=== PATIENT | male | born 1935 | race Caucasian/White ===

== ENCOUNTER → 2018-04-11 | Day surgery (SDC) | payer OTHER ==
[2018-03-15 11:26] VITALS: Ht 162.6 cm; Wt 75.0 kg
[~2018-04-11] VITALS: Ht 162.6 cm; Wt 75.0 kg
[~2018-04-11] MED LIST: 500ML BSS 0.3ML EPI 1:1000PF IRRIG ONE; ACETAMINOPHEN 325 MG TAB PO PRN; AMLO-110 PO; AMVISC PLUS 0.8ML SYRINGE INT OCU ONE; ASPCH81X PO; ATEN-173 PO; ATOR-26 PO; ATROPINE SULFATE 0.1 MG/ML 5ML SYR IV PRN; BSS FLUSH ONE; CETI10TA10 PO; EpHEDrine SULFATE INJ 50 MG/ML AMP IV PRN; EpINEphrine INJ 1MG/ML AMP 1 MG/ML AMP ONE; FLUT0.15 NAE; FURO-85 PO; LACTATED RINGER'S 1000ML 500 ML IV SCH; LIDOCAINE 3.5% OPH GEL PER APPLICATION CHARGE ONE; LIDOCAINE HCL 1% MPF 2 ML VIAL ONE; MIDAZOLAM HCL 1 MG/ML 2ML VIAL ONE; MULT-190 PO; NEBUMIS38 INH; NXM/40 PO; OCUCOAT 1 ML SOLN IO ONE; PHENYLEPHRINE HCL 10% OP SOLN PER DROP CHARGE OPL SCH; POTA1TAB97 PO; POVIDONE-IODINE OP SOLN 30 ML BTL ONE; PROPARACAINE 0.5% OP SOLN PER DROP CHARGE OPL SCH; RANI150T85 PO; TOBRAMYCIN/DEXAMETHASONE OPH OINT PER APPLN CHARGE ONE; TRAZ50TA35 PO; UMEC1AER INH; VNTHFA/IN INH
[2018-04-11] MEDS: PHENYLEPHRINE HCL 2.5% OP SOLN PER DROP CHARGE OPL SCH ×2 (10:43→10:49)
[2018-04-11] MEDS: TROPICAMIDE 1% OP SOLN PER DROP CHARGE OPL SCH ×2 (10:44→10:50)
[2018-04-11] MEDS: CYCLOPENTOLATE HCL 1% OP SOLN PER DROP CHARGE OPL SCH ×2 (10:45→10:50)
[2018-04-11] MEDS: KETOROLAC 0.5% OP SOLN PER DROP CHARGE OPL SCH ×2 (10:46→10:51)
[2018-04-11] MEDS: GATIFLOXACIN OP SOLN PER DROP CHARGE OPL SCH ×2 (10:48→10:58)
--- NOTE | 2018-04-11 10:48 | History & Physical Bridge - [place] ---
H&P Re-Evaluation Bridge Note: I have examined the patient, reviewed the History & Physical and in the interval since the performance of the History & Physical I have noted the following changes of clinical significance: Diagnosis: Left Cataract Procedure: Left Cataract Removal with Lens Implant No changes noted
--- NOTE | 2018-04-11 11:21 | [facility] Operative Report ---
Operative Report Date of Service April 11, 2018. Operative Report 1. PREOPERATIVE DIAGNOSIS: Cataract of the left eye. 2. POSTOPERATIVE DIAGNOSIS: Same. 3. PROCEDURE: Phacoemulsification with intraocular lens implantation of the left eye. SURGEON: Dr. Emmanuel Simons. ANESTHESIA: Topical Lidocaine gel, 1% Non- Preserved intracameral Lidocaine, and monitored intravenous sedation. INDICATIONS FOR THE PROCEDURE: The patient is a 82 - year-old male with a history of cataract of the left eye causing significant visual impairment. The details of the proposed procedure were explained to the patient who asked appropriate questions and following discussion of all risks, benefits and alternatives agreed to have the procedure done. 4. OPERATION AND FINDINGS: DESCRIPTION OF PROCEDURE: After informed consent was obtained, the patient was brought to the Operating Room at the [facility]. The patient was placed in a supine position and then the left eye was prepped and draped in the usual sterile fashion for intraocular surgery. A drop of topical Lidocaine gel was placed in the operative eye. A wire lid speculum was then placed in the fornices. A corneal paracentesis was then created temporally. The Non-Preserved Lidocaine was then instilled into the anterior chamber. The anterior chamber was then pressurized with viscoelastic. A 2.0 mm clear corneal incision was then created temporally. A cystotome was inserted into the anterior chamber and used to create a tear in the anterior lens capsule. This capsular tear was then used to create a small flap and the flap was dragged in a counterclockwise direction in order to create a continuous curvilinear capsulorrhexis. Hydrodissection was accomplished with balanced salt solution. Phacoemulsification of the lens nucleus was then performed in a standard [id number] technique. The phaco time was 45 seconds with an average power of 21 %. The remaining cortical material was removed using irrigation aspiration. The capsular bag was then filled with viscoelastic. A [employer]ch [employer] Lomb MI60L +20.5 diopters lens was then loaded into the injector and injected into the capsular bag. The remaining viscoelastic was removed with the irrigation aspiration handpiece. The wound was hydrated and then checked and found to be watertight. The intraocular pressure was checked and found to be adequate. The wire lid speculum was removed and the patient's face was cleaned and dried. TobraDex ointment was placed in the inferior fornix. The patient was discharged to the Recovery Room having tolerated the procedure well. There were no complications. The patient will be seen tomorrow in the office for follow-up. I attest to the content of the Intraoperative Record and any orders documented therein. Any exceptions are noted below.
--- NOTE | 2018-04-11 11:22 | Discharge Instructions-SurgCtr ---
Discharge Instructions Date of Service April 11, 2018. Visit Reason for Visit: Cataract Left Eye Discharge Discharge Diagnosis / Problem: cataract Discharge Goals Goal(s): Improve function Activity Recommendations Activity Limitations: per Instructions/Follow-up section Anesthesia . Post Anesthesia Instructions: If you have had General Anesthesia or IV Sedation: * Do not drive today. * Resume driving when surgeon permits. * Do not make important decisions or sign legal documents today. * Call surgeon for: 1. Temperature elevations greater than 101 degrees F. 2. Uncontrollable pain. 3. Excessive bleeding. 4. Persistent nausea and vomiting. 5. Medication intolerance (nausea, vomiting or rash). * For nausea and vomiting use only clear liquids such as: tea, soda, bouillon until nausea subsides, then gradually increase diet as tolerated. * If you have any concerns or questions, call your surgeon's office. If physician is unavailable and it is an emergency, call 911 or go to the nearest emergency room. . Diet Recommendations Home Diet: resume previous diet Procedures Procedures Performed: Left Cataract Phacoemulsification With Intraocular Lens Implant Pending Studies Studies pending at discharge: no Medical Emergencies . Who to Call and When: Medical Emergencies: If at any time you feel your situation is an emergency, please call 911 immediately. . Non-Emergent Contact Non-Emergency issues call your: [employer]rapist . . "Provider Documentation" section prepared by Emmanuel Simons. .
[2018-04-11 11:26] VITALS: TEMP 36.4
--- NOTE | 2018-04-11 11:28 | Anesthesia Progress Nt - [facility] ---
Anesthesia Post Op Note Date & Time April 11, 2018 at 11:28 Vital Signs Pain Intensity: 0 Vital Signs Past 12 Hours Date Time Temp Pulse Resp B/P (MAP) Pulse Ox O2 Delivery O2 Flow Rate FiO2 04/11/18 10:30 36.5 52 16 159/72 (101) 94 Room Air Notes Mental Status: alert / awake / arousable, participated in evaluation Pt Amnestic to Procedure: Yes Nausea / Vomiting: adequately controlled Pain: adequately controlled Airway Patency, RR, SpO2: stable & adequate BP & HR: stable & adequate Hydration State: stable & adequate Anesthetic Complications: no major complications apparent
[2018-04-11 11:49] VITALS: BP 146/75; PULSE 62; O2SAT 96
== END | disposition home or self-care (01) ==
LOC: X.SURG 09:52
PROVIDERS: ATTEND Ophthalmology
DX: H26.9 Unspecified cataract (principal); J44.9 Chronic obstructive pulmonary disease, unspecified; I10 Essential (primary) hypertension; E78.5 Hyperlipidemia, unspecified; I25.10 Atherosclerotic heart disease of native coronary artery without angina pectoris; Z87.891 Personal history of nicotine dependence

== ENCOUNTER 2019-01-20 11:40 | Inpatient (IN) ==
[2019-01-20] MEDS ORDERED: ACETAMINOPHEN 500 MG TAB PO STA (11:50)
[2019-01-20 12:16] LABS: Basophils # (auto) 0.03 K/uL (0-0.2); Basophils % (auto) 0.2 %; Eosinophils # (auto) 0.09 K/uL (0-0.5); Eosinophils % (auto) 0.6 %; Hematocrit (blood only) 37.5 % (42-52); Hemoglobin 12.7 g/dL (14.0-18.0); Immature Granulocytes # (auto) 0.04 K/uL (0.00-0.02); Immature Granulocytes % (auto) 0.3 %; Lymphocytes # (auto) 0.71 K/uL (1.2-3.4); Lymphocytes % (auto) 4.9 %; Mean Corpuscular Hgb Conc 33.9 g/dL (32-36); Mean Corpuscular Volume 97.2 fL (80-100); Mean Platelet Volume 9.4 fL (7.4-10.4); Monocytes # (auto) 0.87 K/uL (0.11-0.59); Platelet Count 233 K/uL (130-400); RDW Coefficient of Variation 14.3 % (11.5-14.5); RDW Standard Deviation 50.9 fL (36.4-46.3); Red Blood Count 3.86 M/uL (4.7-6.1); White Blood Count 14.54 K/uL (4.8-10.8)
--- NOTE | 2019-01-20 12:18 | Emergency Department Note ---
History of Present Illness General Chief Complaint: Altered Mental Status Stated Complaint: ams Source: patient History of Present Illness Provider Complaint: shortness of breath Onset (ago): day(s) (this morning) Consistency/Duration: + constant Maximum Pain Intensity: 5 Relieved By: + other (DuoNeb) Associated symptoms: + denies other symptoms (chest pain, hemoptysis), + cough and + other (rigors, rhinorrhea, weakness); no abdominal pain The patient is an 83-year-old male who presented to the emergency department from home for an evaluation of shortness of breath. The patient describes rigor s which began prior to arrival. He states that he did feel at his baseline last evening but today when he awoke he noticed that he did not feel well. The patient did not know that he had a fever but was found to have an elevated temperature upon arrival to the emergency department. He states that he was having shortness of breath and cough. He also notices rhinorrhea. He denies having any sick contacts. He also states that he feels very weak. The weakness appears to be global. He does not complain of any abdominal pain or chest pain. He states the cough has been productive slightly but no hemoptysis. The patient has not seen his family doctor for these complaints. The patient arri ves at the emergency department via ambulance. He received a DuoNeb prior to arrival. Home Medications Home Medications Medication Instructions Recorded Confirmed Type albuterol sulfate [Ventolin HFA] 2 puff INHALATION Q6H PRN 08/05/18 01/20/19 History amlodipine 5 mg PO DAILY 08/05/18 01/20/19 History aspirin [Aspir-81] 81 mg PO DAILY 08/05/18 01/20/19 History atenolol 25 mg PO DAILY 08/05/18 01/20/19 History atorvastatin 80 mg PO PM 08/05/18 01/20/19 History cetirizine 10 mg PO DAILY 08/05/18 01/20/19 History esomeprazole magnesium 40 mg PO BID 08/05/18 01/20/19 History fluticasone [Flonase Allergy 1 spray INTRANASAL DAILY 08/05/18 01/20/19 History Relief] furosemide 20 mg PO DAILY 08/05/18 01/20/19 History potassium chloride 20 meq PO DAILY 08/05/18 01/20/19 History ranitidine HCl 150 mg PO BID 08/05/18 01/20/19 History donepezil 10 mg PO DAILY 01/20/19 01/20/19 History meloxicam 15 mg PO DAILY 01/20/19 01/20/19 History methocarbamol 500 mg PO BID 01/20/19 01/20/19 History nitroglycerin [Nitrostat] 0.4 mg SUBLINGUAL UD 01/20/19 01/20/19 History tiotropium-olodaterol [Stiolto 1 puff INHALATION DAILY 01/20/19 01/20/19 History Respimat] vit C,X-La-olvhp-lutein-zeaxan 1 tab PO BID 01/20/19 01/20/19 History [PreserVision AREDS-2] Allergies Allergy/AdvReac Type Severity Reaction Status Date / Time fentanyl Allergy Unknown cardiac Verified 01/20/19 12:06 arrest lisinopril Allergy Unknown DOES NOT Verified 01/20/19 12:06 KNOW omeprazole AdvReac Unknown dry mouth Verified 01/20/19 12:06 tiotropium AdvReac Unknown didn't Verified 01/20/19 12:06 work for [employer] Past Med/Surg History Medical History Chronic back pain (Chronic) CAD (coronary artery disease) (Chronic) Carotid stenosis (Chronic) COPD (chronic obstructive pulmonary disease) (Chronic) Sleep apnea (Chronic) 2L O2 HS Barretts esophagus (Chronic) GERD (gastroesophageal reflux disease) (Chronic) Dyslipidemia (Chronic) HTN (hypertension) (Chronic) GERD (gastroesophageal reflux disease) (Chronic) Surgical History History of partial colectomy (Resolved) right splenic colonic resection, incidental appendectomy 08/2011 at [facility] H/O heart artery stent (Resolved) History of cholecystectomy (Resolved) H/O heart artery stent Social History Preferred Language: Italian Communication Ability: Impaired Communication Ability Comment: worsened confusion, baseline dementia Financial Services Associate Required: No Beliefs That Will Affect Care: None marital status: / Current Living Situation: Family Current Living Situation Comment: lives with daughter current occupational status: retired Other Information That Helps Us Care for You: No Feels Safe at Home: Yes Safety Concerns: Feels Safe At This Time Smoking Status: Former smoker Hx Alcohol Use: Yes Hx Substance Use: No Review of Systems See HPI for pertinent positives & negatives. and A total of 10 systems reviewed and were otherwise negative Physical Exam Vital Signs: Vital Signs - 24 hr 01/20/19 11:46 01/20/19 11:48 01/20/19 11:50 Temperature 39.4 C H Temperature Source Oral Sepsis Recent Feve r Within 48 Hours Yes Sepsis New/Unexpla ined Change in Men russel Status Yes Sepsis Action Take n by Nursing Physician Notified Pulse Rate 93 H 99 H 90 Pulse Rate [Finger ] Pulse Rate from Sp O2 Sensor 92 H 98 H 90 Respiratory Rate 24 17 30 H Respiratory Effort / Characteristics Respiratory Depth Respiratory Patter n Blood Pressure 143/67 H 143/67 H Blood Pressure [Ri ght Arm] Blood Pressure Jelena n 92 92 Blood Pressure Jelena n [Right Arm] Blood Pressure Pos ition [Right Arm] Pulse Oximetry 91 93 93 Pulse Oximetry [Ri ght Index Finger] Oxygen Delivery Me thod Room Air Oxygen Delivery Me thod [Right Index Finger] Oxygen Flow Rate 01/20/19 12:00 01/20/19 12:01 01/20/19 12:10 Temperature Temperature Source Sepsis Recent Feve r Within 48 Hours Sepsis New/Unexpla ined Change in Men russel Status Sepsis Action Take n by Nursing Pulse Rate 88 92 H 95 H Pulse Rate [Finger ] Pulse Rate from Sp O2 Sensor 93 H 88 95 H Respiratory Rate 28 H 33 H 27 H Respiratory Effort / Characteristics Respiratory Depth Respiratory Patter n Blood Pressure 148/68 H Blood Pressure [Ri ght Arm] Blood Pressure Jelena n 94 Blood Pressure Jelena n [Right Arm] Blood Pressure Pos ition [Right Arm] Pulse Oximetry 94 93 Pulse Oximetry [Ri ght Index Finger] Oxygen Delivery Me thod Oxygen Delivery Me thod [Right Index Finger] Oxygen Flow Rate 01/20/19 12:20 01/20/19 12:30 01/20/19 12:40 Temperature Temperature Source Sepsis Recent Feve r Within 48 Hours Sepsis New/Unexpla ined Change in Men russel Status Sepsis Action Take n by Nursing Pulse Rate 89 95 H 93 H Pulse Rate [Finger ] Pulse Rate from Sp O2 Sensor 90 84 92 H Respiratory Rate 24 25 H 28 H Respiratory Effort / Characteristics Respiratory Depth Respiratory Patter n Blood Pressure Blood Pressure [Ri ght Arm] Blood Pressure Jelena n Blood Pressure Jelena n [Right Arm] Blood Pressure Pos ition [Right Arm] Pulse Oximetry 93 74 L 93 Pulse Oximetry [Ri ght Index Finger] Oxygen Delivery Me thod Oxygen Delivery Me thod [Right Index Finger] Oxygen Flow Rate 01/20/19 12:50 01/20/19 12:51 01/20/19 12:53 Temperature Temperature Source Sepsis Recent Feve r Within 48 Hours Sepsis New/Unexpla ined Change in Men russel Status Sepsis Action Take n by Nursing Pulse Rate 90 93 H Pulse Rate [Finger ] 91 H Pulse Rate from Sp O2 Sensor 92 H 94 H Respiratory Rate 25 H 22 30 H Respiratory Effort / Characteristics Respiratory Depth Respiratory Patter n Blood Pressure 138/61 Blood Pressure [Ri ght Arm] 138/61 Blood Pressure Jelena n 86 Blood Pressure Jelena n [Right Arm] 86 Blood Pressure Pos ition [Right Arm] Pulse Oximetry 93 93 94 Pulse Oximetry [Ri ght Index Finger] Oxygen Delivery Me thod Nasal Cannula Oxygen Delivery Me thod [Right Index Finger] Oxygen Flow Rate 1 01/20/19 13:00 01/20/19 13:01 01/20/19 13:10 Temperature Temperature Source Sepsis Recent Feve r Within 48 Hours Sepsis New/Unexpla ined Change in Men russel Status Sepsis Action Take n by Nursing Pulse Rate 94 H 98 H 101 H Pulse Rate [Finger ] Pulse Rate from Sp O2 Sensor 98 H 101 H Respiratory Rate 27 H 22 23 Respiratory Effort / Characteristics Respiratory Depth Respiratory Patter n Blood Pressure 135/65 Blood Pressure [Ri ght Arm] Blood Pressure Jelena n 88 Blood Pressure Jelena n [Right Arm] Blood Pressure Pos ition [Right Arm] Pulse Oximetry 93 93 Pulse Oximetry [Ri ght Index Finger] Oxygen Delivery Me thod Oxygen Delivery Me thod [Right Index Finger] Oxygen Flow Rate 01/20/19 13:20 01/20/19 13:30 01/20/19 13:31 Temperature Temperature Source Sepsis Recent Feve r Within 48 Hours Sepsis New/Unexpla ined Change in Men russel Status Sepsis Action Take n by Nursing Pulse Rate 103 H 96 H 98 H Pulse Rate [Finger ] Pulse Rate from Sp O2 Sensor 103 H 96 H 97 H Respiratory Rate 26 H 27 H 27 H Respiratory Effort / Characteristics Respiratory Depth Respiratory Patter n Blood Pressure 139/65 Blood Pressure [Ri ght Arm] Blood Pressure Jelena n 89 Blood Pressure Jelena n [Right Arm] Blood Pressure Pos ition [Right Arm] Pulse Oximetry 93 93 93 Pulse Oximetry [Ri ght Index Finger] Oxygen Delivery Me thod Oxygen Delivery Me thod [Right Index Finger] Oxygen Flow Rate 01/20/19 13:32 01/20/19 13:40 01/20/19 13:50 Temperature Temperature Source Sepsis Recent Feve r Within 48 Hours Sepsis New/Unexpla ined Change in Men russel Status Sepsis Action Take n by Nursing Pulse Rate 108 H 103 H Pulse Rate [Finger ] 99 H Pulse Rate from Sp O2 Sensor 107 H 104 H Respiratory Rate 22 26 H 30 H Respiratory Effort / Characteristics Respiratory Depth Respiratory Patter n Blood Pressure Blood Pressure [Ri ght Arm] 139/65 Blood Pressure Jelena n Blood Pressure Jelena n [Right Arm] 89 Blood Pressure Pos ition [Right Arm] Pulse Oximetry 96 97 96 Pulse Oximetry [Ri ght Index Finger] Oxygen Delivery Me thod Nebulizer Oxygen Delivery Me thod [Right Index Finger] Oxygen Flow Rate 01/20/19 14:00 01/20/19 14:10 01/20/19 14:12 Temperature Temperature Source Sepsis Recent Feve r Within 48 Hours Sepsis New/Unexpla ined Change in Men russel Status Sepsis Action Take n by Nursing Pulse Rate 99 H 100 H Pulse Rate [Finger ] 97 H Pulse Rate from Sp O2 Sensor 101 H 100 H Respiratory Rate 34 H 29 H 24 Respiratory Effort / Characteristics Respiratory Depth Respiratory Patter n Blood Pressure 104/45 L Blood Pressure [Ri ght Arm] 104/45 L Blood Pressure Jelena n 64 Blood Pressure Jelena n [Right Arm] 64 Blood Pressure Pos ition [Right Arm] Pulse Oximetry 95 89 L 94 Pulse Oximetry [Ri ght Index Finger] Oxygen Delivery Me thod Room Air Oxygen Delivery Me thod [Right Index Finger] Oxygen Flow Rate 01/20/19 14:20 01/20/19 14:30 01/20/19 14:31 Temperature Temperature Source Sepsis Recent Feve r Within 48 Hours Sepsis New/Unexpla ined Change in Men russel Status Sepsis Action Take n by Nursing Pulse Rate 98 H 98 H 98 H Pulse Rate [Finger ] Pulse Rate from Sp O2 Sensor 96 H 107 H 98 H Respiratory Rate 29 H 25 H 41 H Respiratory Effort / Characteristics Respiratory Depth Respiratory Patter n Blood Pressure 117/51 L Blood Pressure [Ri ght Arm] Blood Pressure Jelena n 73 Blood Pressure Jelena n [Right Arm] Blood Pressure Pos ition [Right Arm] Pulse Oximetry 95 91 94 Pulse Oximetry [Ri ght Index Finger] Oxygen Delivery Me thod Oxygen Delivery Me thod [Right Index Finger] Oxygen Flow Rate 03/02/19 14:40 01/20/19 14:50 01/20/19 15:00 Temperature Temperature Source Sepsis Recent Feve r Within 48 Hours Sepsis New/Unexpla ined Change in Men russel Status Sepsis Action Take n by Nursing Pulse Rate 96 H 96 H 92 H Pulse Rate [Finger ] Pulse Rate from Sp O2 Sensor 96 H 95 H 92 H Respiratory Rate 25 H 15 27 H Respiratory Effort / Characteristics Spontaneous SOB on Exertion Respiratory Depth Normal Respiratory Patter n Tachypnea Blood Pressure 111/61 Blood Pressure [Ri ght Arm] Blood Pressure Jelena n 77 Blood Pressure Jelena n [Right Arm] Blood Pressure Pos ition [Right Arm] Pulse Oximetry 94 94 95 Pulse Oximetry [Ri ght Index Finger] Oxygen Delivery Me thod Room Air Oxygen Delivery Me thod [Right Index Finger] Oxygen Flow Rate 01/20/19 15:01 01/20/19 15:10 01/20/19 15:56 Temperature Temperature Source Sepsis Recent Feve r Within 48 Hours Sepsis New/Unexpla ined Change in Men russel Status Sepsis Action Take n by Nursing Pulse Rate 93 H 88 Pulse Rate [Finger ] 81 Pulse Rate from Sp O2 Sensor 94 H 88 Respiratory Rate 26 H 20 22 Respiratory Effort / Characteristics Respiratory Depth Respiratory Patter n Blood Pressure Blood Pressure [Ri ght Arm] 118/62 Blood Pressure Jelena n Blood Pressure Jelena n [Right Arm] 80 Blood Pressure Pos ition [Right Arm] Pulse Oximetry 94 94 91 Pulse Oximetry [Ri ght Index Finger] Oxygen Delivery Me thod Room Air Oxygen Delivery Me thod [Right Index Finger] Oxygen Flow Rate 01/20/19 16:25 01/20/19 17:03 01/20/19 19:00 Temperature 36.6 C Temperature Source Oral Sepsis Recent Feve r Within 48 Hours Sepsis New/Unexpla ined Change in Men russel Status Sepsis Action Take n by Nursing Pulse Rate Pulse Rate [Finger ] 73 76 Pulse Rate from Sp O2 Sensor Respiratory Rate 22 20 16 Respiratory Effort / Characteristics Non-Labored Sponta neous Respiratory Depth Respiratory Patter n Blood Pressure Blood Pressure [Ri ght Arm] 107/55 L Blood Pressure Jelena n Blood Pressure Jelena n [Right Arm] 72 Blood Pressure Pos ition [Right Arm] Left Lateral Pulse Oximetry 91 91 93 Pulse Oximetry [Ri ght Index Finger] 95 Oxygen Delivery Me thod Room Air Room Air Oxygen Delivery Me thod [Right Index Finger] Room Air Oxygen Flow Rate Physical Exam: GENERAL: Patient is awake alert in no acute distress patient is resting comfortably and showing no signs of anxiety EYES: The conjunctivae are clear. The pupils are round and reactive. EARS, NOSE, MOUTH AND THROAT: Mucous members are moist. There is clear rhin orrhea noted bilaterally. NECK: The neck is nontender and supple. RESPIRATORY: Tachypnea was appreciated. The patient does not have conversational dyspnea. There are diminished breath sounds in the left base. CARDIOVASCULAR: Regular rate and rhythm noted there no murmurs rubs or gallops normal S1 normal S2 GASTROINTESTINAL: The abdomen is soft. Bowel sounds are present in all quadrants. Abdomen is nontender MUSCULOSKELETAL/EXTREMITIES: There is no evidence of gross deformity full range of motion is noted in the hips and shoulders SKIN: There is no obvious evidence of any rash. Pedal edema was noted bilaterally. NEUROLOGIC: Patient is awake alert and oriented x3. Course 1152: Past medical records reviewed. The patient was evaluated in room B4B, and a complete history and physical examination were performed. 1350: I reevaluated the patient and updated him and his family on his test results. I discussed the treatment plan with them. They verbally agree and understand. 1403: [facility] will evaluate the patient for further management. Consultations Consultation #1: I discussed the patient's case with SARA August. She will evaluate the patient for further management. Time: 14:03 Administered Medications Sodium Chloride (Nss 1000ml) 1,000 mls @ 100 mls/hr IV .Q10H [facility] Stop: 01/21/19 13:02 Last Admin: 01/20/19 17:45 Dose: 100 mls/hr Documented by: [id number] Vancomycin HCl 2,000 mg/ (Sodium Chloride) 540 mls @ 200 mls/hr IV NOW ONE Stop: 01/20/19 21:11 Last Admin: 01/20/19 18:51 Dose: 200 mls/hr Documented by: [id number] Ipratropium Maple (Atrovent 0.02% 0.5mg/2.5ml) 0.5 mg INH Q6R SADA Stop: 02/19/19 19:59 Last Admin: 01/20/19 18:59 Dose: 0.5 mg Documented by: [id number] Levalbuterol HCl (Xopenex 0.63 Mg/3 Ml Neb) 0.63 mg NEB Q6R SADA Stop: 02/19/19 19:59 Last Admin: 01/20/19 18:59 Dose: 0.63 mg Documented by: [id number] Discontinued Medications Acetaminophen (Tylenol) 1,000 mg PO NOW STA Stop: 01/20/19 11:51 Last Admin: 01/20/19 12:15 Dose: 1,000 mg Documented by: [id number] Albuterol (Duoneb) 3 ml NEB NOW STA Stop: 01/20/19 13:14 Last Admin: 01/20/19 13:26 Dose: 3 ml Documented by: [id number] Ceftriaxone Sodium (Rocephin) 1,000 mg in 50 mls @ 100 mls/hr IV NOW STA Stop: 01/20/19 13:39 Last Infusion: 01/20/19 13:57 Dose: 0 mls/hr Documented by: [id number] Admin: 01/20/19 13:26 Dose: 100 mls/hr Documented by: [id number] Lorazepam (Ativan) 1 mg in 2 mls @ 2 mls/min IV NOW STA Stop: 01/20/19 13:14 Last Admin: 01/20/19 13:25 Dose: 2 mls/min Documented by: [id number] Sodium Chloride (Nss) 500 mls @ 999 mls/hr IV .Q31M ONE Stop: 01/20/19 13:43 Last Infusion: 01/20/19 14:13 Dose: 0 mls/hr Documented by: [id number] Admin: 01/20/19 13:35 Dose: 999 mls/hr Documented by: [id number] Piperacillin Sod/Tazobactam (Sod 3.375 gm/ Dextrose) 115 mls @ 230 mls/hr IV NOW ONE; Protocol Stop: 01/20/19 18:14 Last Infusion: 01/20/19 19:26 Dose: 0 mls/hr Documented by: [id number] Admin: 01/20/19 18:51 Dose: 230 mls/hr Documented by: [id number] Medical Decision Making Differential Diagnosis Etiologies such as pneumonia, COPD, reactive airway disease, CHF, cardiac ischemia, pulmonary embolism, pneumothorax, mus culoskeletal, infections, gastrointestinal, as well as others were entertained. Medical Records Attestation: I reviewed the patient's medical records. Home Medications Current Medication List: was personally reviewed by me Laboratory Data Attestation: I reviewed the patient's lab results. Result diagrams: 01/20/19 11:54 01/20/19 11:54 Lab Results 01/20/19 01/20/19 01/20/19 Range/Units 11:54 11:54 11:54 WBC 14.54 H (4.8-10.8) K/uL RBC 3.86 L (4.7-6.1) M/uL Hgb 12.7 L (14.0-18.0) g/dL Hct 37.5 L (42-52) % MCV 97.2 (80-100) fL MCH 32.9 (25-34) pg MCHC 33.9 (32-36) g/dL RDW Std Deviation 50.9 H (36.4-46.3) fL RDW Coeff of Kristina 14.3 (11.5-14.5) % Plt Count 233 (130-400) K/uL MPV 9.4 (7.4-10.4) fL Immature Gran % (Auto) 0.3 % Neut % (Auto) 88.0 % Lymph % (Auto) 4.9 % [place] % (Auto) 6.0 % Eos % (Auto) 0.6 % Baso % (Auto) 0.2 % Immature Gran # (Auto) 0.04 H (0.00-0.02) K/uL Neut # (Auto) 12.80 H (1.4-6.5) K/uL Lymph # (Auto) 0.71 L (1.2-3.4) K/uL [place] # (Auto) 0.87 H (0.11-0.59) K/uL Eos # (Auto) 0.09 (0-0.5) K/uL Baso # (Auto) 0.03 (0-0.2) K/uL ESR (0-14) mm/hr PT 10.3 (9.0-12.0) Seconds INR 1.0 (0.9-1.1) APTT 25.4 (21.0-31.0) Seconds PTT Ratio 0.9 VBG pH (7.36-7.41) VBG pCO2 (38-50) mmHg VBG pO2 mmHg VBG HCO3 mmol/L VBG O2 Saturation % VBG Base Excess mEq/L Barometric Pressure mm/Hg Sodium 138 (136-145) mmol/L Potassium 3.8 (3.5-5.1) mmol/L Chloride 104 (98-107) mmol/L Carbon Dioxide 28 (21-32) mmol/L Anion Gap 5.0 (3-11) BUN 22 H (7-18) mg/dl Creatinine 0.83 (0.6-1.4) mg/dl Est Cr Clr Drug Dosing 61.8 ml/min Est GFR ( Amer) 94.3 Est GFR (Non-Af Amer) 81.4 BUN/Creatinine Ratio 26.8 H (10-20) Glucose 119 H (70-99) mg/dl Lactate (0.4-2.0) mmol/L Calcium 9.0 (8.5-10.1) mg/dl Magnesium 1.9 (1.8-2.4) mg/dl Total Bilirubin 0.5 (0.2-1) mg/dl AST 25 (15-37) U/L ALT 24 (12-78) U/L Alkaline Phosphatase 77 (45-117) U/L Troponin I < 0.015 (0-0.045) ng/ml C-Reactive Protein 5.08 H (0-0.29) mg/dl Total Protein 7.7 (6.4-8.2) gm/dl Albumin 3.3 L (3.4-5.0) gm/dl Globulin 4.4 H (2.5-4.0) gm/dl Albumin/Globulin Ratio 0.7 L (0.9-2) Procalcitonin (0-0.5) ng/ml Urine Color Urine Appearance (Clear) Urine pH (4.5-7.5) Ur Specific [place] (1.000-1.030) Urine Protein (Negative) Urine Glucose (UA) (Negative) Urine Ketones (Negative) Urine Blood (Negative) Urine Nitrite (Negative) Urine Bilirubin (Negative) Urine Urobilinogen (Negative) Ur Leukocyte Esterase (Negative) Influenza Type A (PCR) (Neg) Influenza Type B (PCR) (Neg) 01/20/19 01/20/19 01/20/19 Range/Units 11:54 11:54 11:54 WBC (4.8-10.8) K/uL RBC (4.7-6.1) M/uL Hgb (14.0-18.0) g/dL Hct (42-52) % MCV (80-100) fL MCH (25-34) pg MCHC (32-36) g/dL RDW Std Deviation (36.4-46.3) fL RDW Coeff of Kristina (11.5-14.5) % Plt Count (130-400) K/uL MPV (7.4-10.4) fL Immature Gran % (Auto) % Neut % (Auto) % Lymph % (Auto) % [place] % (Auto) % Eos % (Auto) % Baso % (Auto) % Immature Gran # (Auto) (0.00-0.02) K/uL Neut # (Auto) (1.4-6.5) K/uL Lymph # (Auto) (1.2-3.4) K/uL [place] # (Auto) (0.11-0.59) K/uL Eos # (Auto) (0-0.5) K/uL Baso # (Auto) (0-0.2) K/uL ESR 69 H (0-14) mm/hr PT (9.0-12.0) Seconds INR (0.9-1.1) APTT (21.0-31.0) Seconds PTT Ratio VBG pH (7.36-7.41) VBG pCO2 (38-50) mmHg VBG pO2 mmHg VBG HCO3 mmol/L VBG O2 Saturation % VBG Base Excess mEq/L Barometric Pressure mm/Hg Sodium (136-145) mmol/L Potassium (3.5-5.1) mmol/L Chloride (98-107) mmol/L Carbon Dioxide (21-32) mmol/L Anion Gap (3-11) BUN (7-18) mg/dl Creatinine (0.6-1.4) mg/dl Est Cr Clr Drug Dosing ml/min Est GFR ( Amer) Est GFR (Non-Af Amer) BUN/Creatinine Ratio (10-20) Glucose (70-99) mg/dl Lactate (0.4-2.0) mmol/L Calcium (8.5-10.1) mg/dl Magnesium Cancelled (1.8-2.4) mg/dl Total Bilirubin (0.2-1) mg/dl AST (15-37) U/L ALT (12-78) U/L Alkaline Phosphatase (45-117) U/L Troponin I Cancelled (0-0.045) ng/ml C-Reactive Protein Cancelled (0-0.29) mg/dl Total Protein (6.4-8.2) gm/dl Albumin (3.4-5.0) gm/dl Globulin (2.5-4.0) gm/dl Albumin/Globulin Ratio (0.9-2) Procalcitonin 0.11 (0-0.5) ng/ml Urine Color Urine Appearance (Clear) Urine pH (4.5-7.5) Ur Specific [place] (1.000-1.030) Urine Protein (Negative) Urine Glucose (UA) (Negative) Urine Ketones (Negative) Urine Blood (Negative) Urine Nitrite (Negative) Urine Bilirubin (Negative) Urine Urobilinogen (Negative) Ur Leukocyte Esterase (Negative) Influenza Type A (PCR) (Neg) Influenza Type B (PCR) (Neg) 01/20/19 01/20/19 01/20/19 Range/Units 12:05 12:18 12:18 WBC (4.8-10.8) K/uL RBC (4.7-6.1) M/uL Hgb (14.0-18.0) g/dL Hct (42-52) % MCV (80-100) fL MCH (25-34) pg MCHC (32-36) g/dL RDW Std Deviation (36.4-46.3) fL RDW Coeff of Kristina (11.5-14.5) % Plt Count (130-400) K/uL MPV (7.4-10.4) fL Immature Gran % (Auto) % Neut % (Auto) % Lymph % (Auto) % [place] % (Auto) % Eos % (Auto) % Baso % (Auto) % Immature Gran # (Auto) (0.00-0.02) K/uL Neut # (Auto) (1.4-6.5) K/uL Lymph # (Auto) (1.2-3.4) K/uL [place] # (Auto) (0.11-0.59) K/uL Eos # (Auto) (0-0.5) K/uL Baso # (Auto) (0-0.2) K/uL ESR (0-14) mm/hr PT (9.0-12.0) Seconds INR (0.9-1.1) APTT (21.0-31.0) Seconds PTT Ratio VBG pH 7.40 (7.36-7.41) VBG pCO2 52 H (38-50) mmHg VBG pO2 19 mmHg VBG HCO3 31 mmol/L VBG O2 Saturation < 60.0 % VBG Base Excess 5.3 mEq/L Barometric Pressure 732.4 mm/Hg Sodium (136-145) mmol/L Potassium (3.5-5.1) mmol/L Chloride (98-107) mmol/L Carbon Dioxide (21-32) mmol/L Anion Gap (3-11) BUN (7-18) mg/dl Creatinine (0.6-1.4) mg/dl Est Cr Clr Drug Dosing ml/min Est GFR ( Amer) Est GFR (Non-Af Amer) BUN/Creatinine Ratio (10-20) Glucose (70-99) mg/dl Lactate 1.7 (0.4-2.0) mmol/L Calcium (8.5-10.1) mg/dl Magnesium (1.8-2.4) mg/dl Total Bilirubin (0.2-1) mg/dl AST (15-37) U/L ALT (12-78) U/L Alkaline Phosphatase (45-117) U/L Troponin I (0-0.045) ng/ml C-Reactive Protein (0-0.29) mg/dl Total Protein (6.4-8.2) gm/dl Albumin (3.4-5.0) gm/dl Globulin (2.5-4.0) gm/dl Albumin/Globulin Ratio (0.9-2) Procalcitonin (0-0.5) ng/ml Urine Color Urine Appearance (Clear) Urine pH (4.5-7.5) Ur Specific [place] (1.000-1.030) Urine Protein (Negative) Urine Glucose (UA) (Negative) Urine Ketones (Negative) Urine Blood (Negative) Urine Nitrite (Negative) Urine Bilirubin (Negative) Urine Urobilinogen (Negative) Ur Leukocyte Esterase (Negative) Influenza Type A (PCR) Neg for Influ A (Neg) Influenza Type B (PCR) Neg for Influ B (Neg) 01/20/19 Range/Units 18:30 WBC (4.8-10.8) K/uL RBC (4.7-6.1) M/uL Hgb (14.0-18.0) g/dL Hct (42-52) % MCV (80-100) fL MCH (25-34) pg MCHC (32-36) g/dL RDW Std Deviation (36.4-46.3) fL RDW Coeff of Kristina (11.5-14.5) % Plt Count (130-400) K/uL MPV (7.4-10.4) fL Immature Gran % (Auto) % Neut % (Auto) % Lymph % (Auto) % [place] % (Auto) % Eos % (Auto) % Baso % (Auto) % Immature Gran # (Auto) (0.00-0.02) K/uL Neut # (Auto) (1.4-6.5) K/uL Lymph # (Auto) (1.2-3.4) K/uL [place] # (Auto) (0.11-0.59) K/uL Eos # (Auto) (0-0.5) K/uL Baso # (Auto) (0-0.2) K/uL ESR (0-14) mm/hr PT (9.0-12.0) Seconds INR (0.9-1.1) APTT (21.0-31.0) Seconds PTT Ratio VBG pH (7.36-7.41) VBG pCO2 (38-50) mmHg VBG pO2 mmHg VBG HCO3 mmol/L VBG O2 Saturation % VBG Base Excess mEq/L Barometric Pressure mm/Hg Sodium (136-145) mmol/L Potassium (3.5-5.1) mmol/L Chloride (98-107) mmol/L Carbon Dioxide (21-32) mmol/L Anion Gap (3-11) BUN (7-18) mg/dl Creatinine (0.6-1.4) mg/dl Est Cr Clr Drug Dosing ml/min Est GFR ( Amer) Est GFR (Non-Af Amer) BUN/Creatinine Ratio (10-20) Glucose (70-99) mg/dl Lactate (0.4-2.0) mmol/L Calcium (8.5-10.1) mg/dl Magnesium (1.8-2.4) mg/dl Total Bilirubin (0.2-1) mg/dl AST (15-37) U/L ALT (12-78) U/L Alkaline Phosphatase (45-117) U/L Troponin I (0-0.045) ng/ml C-Reactive Protein (0-0.29) mg/dl Total Protein (6.4-8.2) gm/dl Albumin (3.4-5.0) gm/dl Globulin (2.5-4.0) gm/dl Albumin/Globulin Ratio (0.9-2) Procalcitonin (0-0.5) ng/ml Urine Color Yellow Urine Appearance Clear (Clear) Urine pH 7.0 (4.5-7.5) Ur Specific [place] 1.018 (1.000-1.030) Urine Protein Negative (Negative) Urine Glucose (UA) Negative (Negative) Urine Ketones Negative (Negative) Urine Blood Negative (Negative) Urine Nitrite Negative (Negative) Urine Bilirubin Negative (Negative) Urine Urobilinogen Negative (Negative) Ur Leukocyte Esterase Negative (Negative) Influenza Type A (PCR) (Neg) Influenza Type B (PCR) (Neg) Imaging Data Radiologist's Impression: Radiology results as stated below per my review and the radiologist's interpretation: XR chest 1V portable CLINICAL HISTORY: Sepsis dyspnea COMPARISON STUDY: 08/04/2018 FINDINGS: The bones soft tissues and hemidiaphragms are normal. The car diomediastinal silhouette is normal. The lungs are clear. The pulmonary vasculature is normal. Potential small parenchymal infiltrate peripheral aspect right base IMPRESSION: Small parenchymal infiltrate peripheral aspect right base The above report was generated using voice recognition software. It may contain grammatical, syntax or spelling errors. Electronically signed by: Darrion Choudhary M.D. 01/20/2019 12:33 PM ECG Data Attestation: I personally reviewed and interpreted this ECG as follows: Prior ECG tracings: available for review (no change from 08/04/18) Interpretation: Normal sinus rhythm at a rate of 88. No ectopy. No acute ST segments. RBBB. Blood Pressure Blood Pressure Findings: Low blood pressure Blood Pressure Disposition: further management by hospitalist BOBBY Palacios The patient is an 83-year-old male who presented to the emergency department for an evaluation of cough and altered mental status. The patient is a history of underlying dementia. The patient was found to have signs of pneumonia on chest x-ray. He did have a fever. He was treated with IV fluids IV antibiotics for presumed infiltrate. The patient was reevaluated multiple times. The patient began having worsening of his dementia and became somewhat agitated. He was treated with Ativan. I discussed the patient's laboratory and radiographic studies with him and his significant other. I discussed his case with the on- call [facility] hospitalist group. They have agreed to evaluate patient in the emergency department for further management and disposition. The patient was treated with supplement oxygen. Impression & Plan Pneumonia, Dementia, Hypoxia, Fever Discharge Plan Visit Data *Final* Discharge Date/Time: 01/20/19 16:25 Chief Complaint: Altered Mental Status Stated Complaint: ams ED Provider: Basil Couch Discharge Problem: Pneumonia, Dementia, Hypoxia, Fever Patient Disposition: Admitted As Inpatient Discharge Instructions Interventions: ED Discharge Assessment Last Done: 01/20/19 16:25 Discharge Problem: Pneumonia Qualifiers: Pneumonia type: due to unspecified organism Laterality: unspecified laterality Lung location: unspecified part of lung Qualified Code(s): J18.9 - Pneumonia, unspecified organism Dementia Qualifiers: Dementia type: unspecified type Dementia behavioral disturbance: without behav ioral disturbance Qualified Code(s): F03.90 - Unspecified dementia without behavioral disturbance Fever Qualifiers: Fever type: unspecified Qualified Code(s): R50.9 - Fever, unspecified
[2019-01-20 12:25] LABS: Partial Thromboplastin Ratio 0.9; Partial Thromboplastin Time 25.4 Seconds (21.0-31.0); Prothrombin Time 10.3 Seconds (9.0-12.0)
[2019-01-20 12:30] LABS: Alanine Aminotransferase 24 U/L (12-78); Albumin Level 3.3 gm/dl (3.4-5.0); Aspartate Aminotransferase 25 U/L (15-37); BUN Creatinine Ratio 26.8 (10-20); Blood Urea Nitrogen 22 mg/dl (7-18); C Reactive Protein 5.08 mg/dl (0-0.29); Carbon Dioxide 28 mmol/L (21-32); Chloride 104 mmol/L (98-107); Creatinine Clr Calc Pharmacy 61.8 ml/min; Est GFR (African American) 94.3; Est GFR (Non-African American) 81.4; Glucose 119 mg/dl (70-99); Magnesium 1.9 mg/dl (1.8-2.4); Potassium 3.8 mmol/L (3.5-5.1); Sodium 138 mmol/L (136-145)
[2019-01-20 12:33] LABS: Base Excess VBG 5.3 mEq/L; HCO3 VBG 31 mmol/L; Oxygen Saturation VBG < 60.0 %; PCO2 VBG 52 mmHg (38-50); PO2 VBG 19 mmHg
--- NOTE | 2019-01-20 12:34 | XRay Report ---
XR chest 1V portable CLINICAL HISTORY: Sepsis dyspnea COMPARISON STUDY: 08/04/2018 FINDINGS: The bones soft tissues and hemidiaphragms are normal. The cardiomediastinal silhouette is n ormal. The lungs are clear. The pulmonary vasculature is normal. Potential small parenchymal infiltra te peripheral aspect right base IMPRESSION: Small parenchymal infiltrate peripheral aspect right base The above report was generated using voice recognition software. It may contain grammatical, syntax or spelling errors. Electronically signed by: Darrion Choudhary M.D. 01/20/2019 12:33 PM
[2019-01-20 12:35] LABS: Albumin Globulin Ratio 0.7 (0.9-2); Alkaline Phosphatase 77 U/L (45-117); Bilirubin,Total 0.5 mg/dl (0.2-1); Globulin 4.4 gm/dl (2.5-4.0); Total Protein 7.7 gm/dl (6.4-8.2); Troponin I < 0.015 ng/ml (0-0.045)
[2019-01-20 12:59] LABS: Influenza A virus by PCR Neg for Influ A (Neg); Influenza B virus by PCR Neg for Influ B (Neg)
[2019-01-20] MEDS ORDERED: cefTRIAXone SODIUM 1,000 MG/50 ML BAG IV STA (13:10)
[2019-01-20] MEDS ORDERED: ALBUT/IPRATROP 3MG/0.5MG NEB 3 ML VIAL NEB STA (13:13)
[2019-01-20] MEDS ORDERED: SODIUM CHLORIDE 0.9% 500 ML IV ONE (13:13)
[2019-01-20] MEDS ORDERED: LORazepam 1 MG/2 ML VIAL IV STA (13:13)
--- NOTE | 2019-01-20 15:32 | CT Scan Report ---
CT head/brain wo con CT DOSE: 638.56 mGycm HISTORY: Mental status change AMS TECHNIQUE: Multiaxial CT images of the head were performed without the use of intravenous contrast. A dose lowering technique was utilized adhering to the principles of ALARA. Comparison: 06/04/2008. Findings: The paranasal sinuses and mastoid air cells are clear. The calvarium and skull base are int act. The ventricles and sulci are within normal limits. There is no mass, hematoma, midline shift, or acute infarct. Impression: No acute intracranial abnormality. Mild age-related chronic small vessel change and atrophy The above report was generated using voice recognition software. It may contain grammatical, syntax or spelling errors. Electronically signed by: Darrion Choudhary M.D. 01/20/2019 3:30 PM
--- NOTE | 2019-01-20 16:10 | History & Physical Report ---
Date of Service January 20, 2019 Assessment & Plan (1) Pneumonia: (2) Fever: Pt presented with reports of rigors, fever and SOB this morning. Reported nonproductive cough past couple of days with decreased appetite, generalized weakness. States vomited once a couple of days ago, no further vomiting or diarrhea reported. In ER pt T: 39.4C, R: 27, P: 97-108, BP: 143/67, 11/61, 90% on RA. Reported pt oxygen sats dropped to high 80's on RA and was placed on 1L oxygen NC with sats to 95%. WBC: 14.5, CRP: 50, ESR: 69, BUN: 22, Cr: 0.8, Lactate: 1.7, Procalcitonin: 0.11. Negative influenza swab CXR: Small parenchymal infiltrate peripheral aspect right base -In ER given Tylenol, Rocephin, 500ml NSS, duoneb -Blood cultures pending -MRSA swab pending -will place on broader antibiotic coverage for now - zosyn, vancomycin -IVF -Xopenex/atrovent nebs -Supplemental oxygen as needed -Aspiration precautions, bedside dysphagia screen -CBC, BMP in am (3) Metabolic encephalopathy: Pt with hx dementia and was started on donepezil approx 6 weeks ago. reports increased confusion today. In ER was given ativan 1mg as pt reported to be restless and agitated. Upon my exam pt restless and confused but is able to be redirected. CT Head: no acute changes Probable secondary to underlying infection -monitor and monitor for delerium (4) COPD (chronic obstructive pulmonary disease): Hx COPD -hold home inhaler as pt does not have with him and will do xopenex/atrovent nebs -supplemental oxygen -continue home oxygen 2L HS (5) CAD (coronary artery disease): S/P Stent Denies CP. Troponin negative. EKG poor tracing with rate 88, RBBB, 1st degree AV block. 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 -repeat EKG in am -continue ASA, statin, atenolol (6) HTN (hypertension): BP with lower trending BP's while in ER with BP's initially 143/67, down to 104/45 up to 111/61 -will hold amlodipine, lasix at this time -atenolol with holding parameters (7) Dyslipidemia: -Continue statin (8) Sleep apnea: -Continue oxygen 2L HS (9) Dementia: -Continue donepezil (10) Barretts esophagus: -Continue PPI, H2 sukumar (11) Chronic back pain: -Hold methocarbamol at this time with confusion -Continue meloxicam but close monitoring of renal functions DVT Prophylaxis -Heparin SQ Full Code as per discussion with pt and pt's , however reports would not want prolonged on life support if poor prognosis Follows with Dr Clarke at [facility] for routine care Pt was seen with Dr Jones. See addendum History of Present Illness Chief Complaint: Fever Primary Care Provider: Dr Clarke - [facility] Pt is 83 y/o M with PMH HTN, dyslipidemia, CAD s/p stent, COPD, sleep apnea, on 2L oxygen HS, GERD, Steward's esophagus, carotid stenosis, dementia presented to ER with c/o rigors, fever, altered mental status. Most of history obtained from pt's secondary to pt's confusion. Pt's reports pt has had general increased confusion over past several months and was diagnosed with vascular dementia approx 6 weeks ago and started on donepezil. She states past 2 days pt with decreased appetite, dry cough and seemed more weak. She states pt c/o intermittent nausea past couple of days. A couple of days ago had reflux or small vomiting episode after eating. No further vomiting. denies any known choking but states pt takes his pills with applesauce to assist in swallowing. Today with SOB, rigors and fever and increased confusion. Denies falls. States pt has been urinating without complaint. She reports pt often has sensation of needing to have BM couple of times a day, but usually only has one BM a day. Thinks had BM yesterday and doesn't think pt has had any diarrhea. She reports pt had reported THOMAS this morning. Currently pt deneis any THOMAS. reports pt with chronic intermittent back pain. Denies any increased pain. Pt had morning meds today. Denies ill contacts. Reports had influenza vaccine this season. He denies CP or SOB or abdominal pain. hasn't noticed increased LE edema. Allergies Allergy/AdvReac Type Severity Reaction Status Date / Time fentanyl Allergy Unknown cardiac Verified 01/20/19 12:06 arrest lisinopril Allergy Unknown DOES NOT Verified 01/20/19 12:06 KNOW omeprazole AdvReac Unknown dry mouth Verified 01/20/19 12:06 tiotropium AdvReac Unknown didn't Verified 01/20/19 12:06 work for [employer] Home Medications Home Medications Medication Instructions Recorded Confirmed Type albuterol sulfate [Ventolin HFA] 2 puff INHALATION Q6H PRN 08/05/18 01/20/19 History amlodipine 5 mg PO DAILY 08/05/18 01/20/19 History aspirin [Aspir-81] 81 mg PO DAILY 08/05/18 01/20/19 History atenolol 25 mg PO DAILY 08/05/18 01/20/19 History atorvastatin 80 mg PO PM 08/05/18 01/20/19 History cetirizine 10 mg PO DAILY 08/05/18 01/20/19 History esomeprazole magnesium 40 mg PO BID 08/05/18 01/20/19 History fluticasone [Flonase Allergy 1 spray INTRANASAL DAILY 08/05/18 01/20/19 History Relief] furosemide 20 mg PO DAILY 08/05/18 01/20/19 History potassium chloride 20 meq PO DAILY 08/05/18 01/20/19 History ranitidine HCl 150 mg PO BID 08/05/18 01/20/19 History donepezil 10 mg PO DAILY 01/20/19 01/20/19 History meloxicam 15 mg PO DAILY 01/20/19 01/20/19 History methocarbamol 500 mg PO BID 01/20/19 01/20/19 History nitroglycerin [Nitrostat] 0.4 mg SUBLINGUAL UD 01/20/19 01/20/19 History tiotropium-olodaterol [Stiolto 1 puff INHALATION DAILY 01/20/19 01/20/19 History Respimat] vit C,P-Xa-utcxe-lutein-zeaxan 1 tab PO BID 01/20/19 01/20/19 History [PreserVision AREDS-2] Past Med/Surg History Medical History Chronic back pain (Chronic) CAD (coronary artery disease) (Chronic) Carotid stenosis (Chronic) COPD (chronic obstructive pulmonary disease) (Chronic) Sleep apnea (Chronic) 2L O2 HS Barretts esophagus (Chronic) GERD (gastroesophageal reflux disease) (Chronic) Dyslipidemia (Chronic) HTN (hypertension) (Chronic) GERD (gastroesophageal reflux disease) (Chronic) Surgical History History of partial colectomy (Resolved) right splenic colonic resection, incidental appendectomy 08/2011 at [facility] H/O heart artery stent (Resolved) History of cholecystectomy (Resolved) H/O heart artery stent Social History Preferred Language: Tongan Communication Ability: Impaired Communication Ability Comment: worsened confusion, baseline dementia Couples Therapist Required: No Beliefs That Will Affect Care: None marital status: / Current Living Situation: Family Current Living Situation Comment: lives with daughter current occupational status: retired Other Information That Helps Us Care for You: No Feels Safe at Home: Yes Safety Concerns: Feels Safe At This Time Smoking Status: Former smoker Hx Alcohol Use: Yes Hx Substance Use: No Review of Systems Unobtainable due to cognitive status Physical Exam Vital Signs (Past 24 Hours): Last Vital Signs Temp 39.4 C H 01/20/19 11:48 Pulse 81 01/20/19 15:56 Resp 22 01/20/19 15:56 BP 118/62 01/20/19 15:56 Pulse Ox 91 01/20/19 15:56 Physical Exam: General: ill appearing elderly male, restless, otherwise no apparent distress, WDWN Head: normocephalic, atraumatic Eyes: PERRL, EOM's intact, conjunctiva non-injected, anicteric ENT: normal inspection external ears, nose, mucous membranes dry Neck: supple, trachea midline, non-tender Lungs: no respiratory distress on 2L oxygen NC with sat of 95%, rales right base, no wheezing or rhonchi noted CV: RRR, no murmur, 1+ pretibial edema Abd: normal BS, soft, non-tender Ext: no cyanosis, no calf tenderness, ROM bilateral upper and lower extremities Neuro: Alert, oriented to person only, no focal deficits noted Skin: warm, dry Results & Data Laboratory Results Short CBC 01/20/19 Range/Units 11:54 WBC 14.54 H (4.8-10.8) K/uL Hgb 12.7 L (14.0-18.0) g/dL Hct 37.5 L (42-52) % Plt Count 233 (130-400) K/uL BMP 01/20/19 11:54 Sodium 138 Potassium 3.8 Chloride 104 Carbon Dioxide 28 BUN 22 H Creatinine 0.83 Glucose 119 H Calcium 9.0 Cardiac Enzymes 01/20/19 01/20/19 Range/Units 11:54 11:54 Troponin I < 0.015 Cancelled (0-0.045) ng/ml Liver Function 01/20/19 Range/Units 11:54 Total Bilirubin 0.5 (0.2-1) mg/dl AST 25 (15-37) U/L ALT 24 (12-78) U/L Alkaline Phosphatase 77 (45-117) U/L Albumin 3.3 L (3.4-5.0) gm/dl Diagnostic Findings CXR: IMPRESSION: Small parenchymal infiltrate peripheral aspect right base CT HEAD: Impression: No acute intracranial abnormality. Mild age-related chronic small vessel change and atrophy Supervising Physician Co-Signing Physician Notes Pt was seen and examined. Agreed with Estelita RUIZ exam, assessment and plan. 83 y/o M with PMH HTN, dyslipidemia, CAD s/p stent, COPD, sleep apnea, on 2L oxygen HS, GERD, Steward's esophagus, carotid stenosis, dementia presented to ER with chief complaint of fever, chills and altered mental status. In the ER temp was 39.6 and Influenza PCR negative. CT head showed no acute intracranial abnormality. CXR done in the ER showed small parenchymal infiltrate peripheral aspect right base. Received Rocephin in the ER. Blood cx collected in the ER. Will start on Vanco and Zosyn IV. Follow blood cx. Will continue monitor closely. MD Karen (1) Fever Fever type: unspecified Qualified Code(s): R50.9 - Fever, unspecified (2) Pneumonia Laterality: unspecified laterality Lung location: unspecified part of lung Pneumonia type: due to unspecified organism Qualified Code(s): J18.9 - Pneumonia, unspecified organism
[2019-01-20] MEDS ORDERED: ACETAMINOPHEN 325 MG TAB PO PRN (17:03)
[2019-01-20] MEDS ORDERED: NITROGLYCERIN SL 0.4 MG/TAB TAB SL PRN (17:03)
[2019-01-20] MEDS ORDERED: VANCOMYCIN CONSULT ACTIVE PRN (17:44)
[2019-01-20] MEDS ORDERED: PIPERACILL/TAZOBAC CONSULT ACTIVE PRN (17:44)
[2019-01-20] MEDS ORDERED: PIPERACILLIN/TAZOBACTAM 3.375 GM in DEXTROSE 5% 100 ML IV ONE (17:45)
[2019-01-20] MEDS: SODIUM CHLORIDE 0.9% 1000ML 1,000 ML IV SCH (17:45)
[2019-01-20] MEDS ORDERED: VANCOMYCIN HCL 2,000 MG in SODIUM CHLORIDE 0.9% 500 ML IV ONE (18:30)
[2019-01-20] MEDS: LEVALBUTEROL HCL 0.63 MG/3 ML NEB NEB SCH (18:59)
[2019-01-20] MEDS: IPRATROPIUM BROMIDE NEB SOLN 0.02% 2.5 ML VIAL INH SCH (18:59)
[2019-01-20 19:04] LABS: Appearance Urine Clear (Clear); Bilirubin Urine Negative (Negative); Blood Urine Negative (Negative); Color Urine Yellow; Glucose Urine UA Negative (Negative); Ketones Urine Negative (Negative); Leukocyte Esterase Urine Negative (Negative); Nitrite Urine Negative (Negative); Protein Urine Negative (Negative); Specific Gravity Urine 1.018 (1.000-1.030); Urobilinogen Urine Negative (Negative)
[2019-01-20] MEDS ORDERED: XOPENEX/ATROVENT 0.63mg/0.5MG NEB COMBO NEB SCH (20:00)
[2019-01-20] MEDS: ATORVASTATIN 40 MG TAB PO SCH (21:16)
[2019-01-20] MEDS: PANTOprazole 40 MG TAB PO SCH (21:16)
[2019-01-20] MEDS: HEPARIN SOD 5,000 UNIT/0.5 ML VIAL SQ SCH (22:29)
[2019-01-20] MEDS ORDERED: OLANZapine 10 MG/2.1 ML SDV IM PRN (22:59)
[2019-01-20] MEDS: PIPERACILLIN/TAZOBACTAM 3.375 GM in DEXTROSE 5% 100 ML IV SCH (23:51)
[2019-01-21] MEDS: LEVALBUTEROL HCL 0.63 MG/3 ML NEB NEB SCH ×4 (01:37→19:27)
[2019-01-21] MEDS: IPRATROPIUM BROMIDE NEB SOLN 0.02% 2.5 ML VIAL INH SCH ×4 (01:37→19:27)
[2019-01-21] MEDS: SODIUM CHLORIDE 0.9% 1000ML 1,000 ML IV SCH (05:57)
[2019-01-21] MEDS: HEPARIN SOD 5,000 UNIT/0.5 ML VIAL SQ SCH ×3 (06:04→20:42)
[2019-01-21 07:01] LABS: Basophils # (auto) 0.04 K/uL (0-0.2); Basophils % (auto) 0.3 %; Eosinophils # (auto) 0.21 K/uL (0-0.5); Eosinophils % (auto) 1.4 %; Hematocrit (blood only) 32.8 % (42-52); Hemoglobin 11.1 g/dL (14.0-18.0); Immature Granulocytes # (auto) 0.04 K/uL (0.00-0.02); Immature Granulocytes % (auto) 0.3 %; Lymphocytes # (auto) 1.69 K/uL (1.2-3.4); Lymphocytes % (auto) 11.3 %; Mean Corpuscular Hgb Conc 33.8 g/dL (32-36); Mean Corpuscular Volume 98.8 fL (80-100); Monocytes % (auto) 6.7 %; Neutrophils # (auto) 11.93 K/uL (1.4-6.5); Platelet Count 181 K/uL (130-400); RDW Coefficient of Variation 14.6 % (11.5-14.5); RDW Standard Deviation 52.4 fL (36.4-46.3); Red Blood Count 3.32 M/uL (4.7-6.1); White Blood Count 14.91 K/uL (4.8-10.8)
[2019-01-21 07:33] LABS: BUN Creatinine Ratio 26.7 (10-20); Calcium 7.4 mg/dl (8.5-10.1); Creatinine Clr Calc Pharmacy 59.9 ml/min; Est GFR (African American) 93.4; Est GFR (Non-African American) 80.6; Potassium 3.5 mmol/L (3.5-5.1)
[2019-01-21] MEDS: ATENOLOL 25 MG TABLET PO SCH (07:35)
[2019-01-21] MEDS: MELOXICAM 7.5 MG TAB PO SCH (07:35)
[2019-01-21] MEDS: ASPIRIN 81 MG ECTAB PO SCH (07:35)
[2019-01-21] MEDS: PANTOprazole 40 MG TAB PO SCH ×2 (07:35→20:37)
[2019-01-21] MEDS: DONEPEZIL HCL 10 MG TAB PO SCH (07:36)
[2019-01-21] MEDS: POTASSIUM CHLORIDE 20 MEQ TABCR PO SCH (07:36)
[2019-01-21] MEDS: FLUTICASONE PROPIONATE NA SPR 16 GM BTL SCH (07:36)
[2019-01-21] MEDS: PIPERACILLIN/TAZOBACTAM 3.375 GM in DEXTROSE 5% 100 ML IV SCH ×2 (07:52→16:29)
[2019-01-21] MEDS: VANCOMYCIN HCL 1,000 MG in SODIUM CHLORIDE 0.9% 250 ML IV SCH (11:43)
--- NOTE | 2019-01-21 14:14 | Hospitalist Progress Note ---
Date of Service January 21, 2019 Assessment & Plan (1) Pneumonia: (2) Fever: Present on admission with chills, fever, confusion assosicated with SOB CXR showed small parenchymal infiltrate peripheral aspect right base Procalcitonin wnl MRSA swab negative Continue on Zosyn and Vanco IV Blood cx pending Continue oxygen supplement Clinically improves (3) Metabolic encephalopathy: CT Head showed no acute changes Stable (4) COPD (chronic obstructive pulmonary disease): Hx COPD Continue duoneb treatment Will resume spiriva AM Continue oxygen supplemental (5) CAD (coronary artery disease): S/P Stent Continue ASA, statin, atenolol Stable (6) HTN (hypertension): BP stable Will resume amlodine and lasix Continue Atenolol Will continue monitor BP (7) Dyslipidemia: Continue statin (8) Sleep apnea: Continue oxygen 2L HS (9) Dementia: Continue donepezil (10) Barretts esophagus: Continue PPI and H2 sukumar (11) Chronic back pain: Hold methocarbamol at this time with confusion Continue meloxicam but close monitoring of renal functions DVT Prophylaxis Heparin SQ CODE STATUS FULL CODE Disposition Will discharge home tomorrow Subjective Pt was seen and examined Sitting in chair with no distress with at bedside Pt said that he feels much better today He said that the cough improves said that uses oxygen at night Denies any chest pain, palpitation, dizziness and SOB Physical Exam Vital Signs (Past 24 Hours): Last Vital Signs Temp 36.7 C 01/21/19 12:00 Pulse 61 01/21/19 12:00 Resp 18 01/21/19 13:33 BP 137/60 01/21/19 12:00 Pulse Ox 95 01/21/19 13:33 Physical Exam: General- No acute distress Head- atraumatic Eyes- PERRL, EOMI, ENT- oropharynx clear Neck- supple, no JVD Lungs- No wheezing, no rales Heart- regular rhythm; no murmur Abdomen- normal bowel sounds, soft, nontender Extremities- no calf tenderness Neuro- alert, oriented x 3; PERRL, EOMI; no facial palsy; no dysarthria Skin- warm & dry (1) Fever Fever type: unspecified Qualified Code(s): R50.9 - Fever, unspecified (2) Pneumonia Laterality: unspecified laterality Lung location: unspecified part of lung Pneumonia type: due to unspecified organism Qualified Code(s): J18.9 - Pneumonia, unspecified organism
[2019-01-21] MEDS: ATORVASTATIN 40 MG TAB PO SCH (20:42)
[2019-01-22] MEDS: PIPERACILLIN/TAZOBACTAM 3.375 GM in DEXTROSE 5% 100 ML IV SCH ×2 (00:25→07:54)
[2019-01-22] MEDS: LEVALBUTEROL HCL 0.63 MG/3 ML NEB NEB SCH ×2 (02:04→07:24)
[2019-01-22] MEDS: IPRATROPIUM BROMIDE NEB SOLN 0.02% 2.5 ML VIAL INH SCH ×2 (02:05→07:24)
[2019-01-22] MEDS: VANCOMYCIN HCL 1,000 MG in SODIUM CHLORIDE 0.9% 250 ML IV SCH (02:48)
[2019-01-22] MEDS: HEPARIN SOD 5,000 UNIT/0.5 ML VIAL SQ SCH (06:02)
[2019-01-22 07:47] LABS: Hematocrit (blood only) 36.1 % (42-52); Hemoglobin 12.7 g/dL (14.0-18.0); Mean Corpuscular Hgb Conc 35.2 g/dL (32-36); Mean Corpuscular Volume 96.5 fL (80-100); Mean Platelet Volume 9.1 fL (7.4-10.4); Platelet Count 233 K/uL (130-400); RDW Standard Deviation 49.8 fL (36.4-46.3); Red Blood Count 3.74 M/uL (4.7-6.1); White Blood Count 12.71 K/uL (4.8-10.8)
[2019-01-22] MEDS: MELOXICAM 7.5 MG TAB PO SCH (07:53)
[2019-01-22] MEDS: ATENOLOL 25 MG TABLET PO SCH (07:53)
[2019-01-22] MEDS: POTASSIUM CHLORIDE 20 MEQ TABCR PO SCH (07:53)
[2019-01-22] MEDS: DONEPEZIL HCL 10 MG TAB PO SCH (07:53)
[2019-01-22] MEDS: PANTOprazole 40 MG TAB PO SCH (07:53)
[2019-01-22] MEDS: FLUTICASONE PROPIONATE NA SPR 16 GM BTL SCH (07:54)
[2019-01-22] MEDS: ASPIRIN 81 MG ECTAB PO SCH (07:54)
--- NOTE | 2019-01-22 12:50 | Hospitalist Progress Note ---
Date of Service January 22, 2019 Assessment & Plan (1) Sepsis: (2) Pneumonia: (3) Fever: Present on admission with chills, fever, confusion assosicated with SOB Meet sepsis criteria on admission with fever, tachycardia and elevated WBC Mostly due to Pneumonia CXR showed small parenchymal infiltrate peripheral aspect right base Procalcitonin wnl MRSA swab negative Continue on Zosyn and Vanco IV Blood cx no growth Continue oxygen supplement Clinically improves Will change IV abx to Augmentin BID to complete 7 days course of abx (4) Metabolic encephalopathy: CT Head showed no acute changes Stable (5) COPD (chronic obstructive pulmonary disease): Hx COPD Continue duoneb treatment Will resume spiriva AM Continue oxygen supplemental (6) CAD (coronary artery disease): S/P Stent Continue ASA, statin, atenolol Stable (7) HTN (hypertension): BP stable Will resume amlodine and lasix Continue Atenolol Will continue monitor BP (8) Dyslipidemia: Continue statin (9) Sleep apnea: Continue oxygen 2L HS (10) Dementia: Continue donepezil (11) Barretts esophagus: Continue PPI and H2 sukumar (12) Chronic back pain: Hold methocarbamol at this time with confusion Continue meloxicam but close monitoring of renal functions DVT Prophylaxis Heparin SQ CODE STATUS FULL CODE Disposition Will discharge home today Follow up with Dr. Nogueira on 01/26 @ 12:45 PM Subjective Pt was seen and examined Lying in bed with no distress Pt has been very anxious to go home Denies any chest pain, palpitation, dizziness and SOB Physical Exam Vital Signs (Past 24 Hours): Last Vital Signs Temp 36.4 C L 01/22/19 11:22 Pulse 77 01/22/19 11:22 Resp 20 01/22/19 11:22 BP 171/72 H 01/22/19 11:22 Pulse Ox 92 01/22/19 11:22 Physical Exam: General- No acute distress Head- atraumatic Eyes- PERRL, EOMI, ENT- oropharynx clear Neck- supple, no JVD Lungs- No wheezing, no rales Heart- regular rhythm; no murmur Abdomen- normal bowel sounds, soft, nontender Extremities- no calf tenderness Neuro- alert, oriented x 3; PERRL, EOMI; no facial palsy; no dysarthria Skin- warm & dry (1) Fever Fever type: unspecified Qualified Code(s): R50.9 - Fever, unspecified (2) Pneumonia Laterality: unspecified laterality Lung location: unspecified part of lung Pneumonia type: due to unspecified organism Qualified Code(s): J18.9 - Pneumonia, unspecified organism
[2019-01-22] MEDS ORDERED: AMOXICILLIN/CLAVULANATE 875 MG TAB PO SCH (17:00)
--- NOTE | 2019-01-23 06:58 | Discharge Summary ---
Date of Service January 25, 2019 Admission HPI Per Admitting Provider Pt is 83 y/o M with PMH HTN, dyslipidemia, CAD s/p stent, COPD, sleep apnea, on 2L oxygen HS, GERD, Steward's esophagus, carotid stenosis, dementia presented to ER with c/o rigors, fever, altered mental status. Most of history obtained from pt's secondary to pt's confusion. Pt's reports pt has had general increased confusion over past several months and was diagnosed with vascular dementia approx 6 weeks ago and started on donepezil. She states past 2 days pt with decreased appetite, dry cough and seemed more weak. She states pt c/o intermittent nausea past couple of days. A couple of days ago had reflux or small vomiting episode after eating. No further vomiting. denies any known choking but states pt takes his pills with applesauce to assist in swallowing. Today with SOB, rigors and fever and increased confusion. Denies falls. States pt has been urinating without complaint. She reports pt often has sensation of needing to have BM couple of times a day, but usually only has one BM a day. T hinks had BM yesterday and doesn't think pt has had any diarrhea. She reports pt had reported THOMAS this morning. Currently pt deneis any THOMAS. reports pt with chronic intermittent back pain. Denies any increased pain. Pt had morning meds today. Denies ill contacts. Reports had influenza vaccine this season. He denies CP or SOB or abdominal pain. hasn't noticed increased LE edema. Discharge Data Consultations 01/20/19 14:05 ED Decision to Admit Stat 01/20/19 17:03 Consult Case Management - Discharge Planning Routine
[2019-01-23] MEDS ORDERED: VANCOMYCIN TROUGH ONE (10:30)
--- NOTE | 2019-01-25 01:16 | Discharge Summary ---
Date of Service January 22, 2019 Admission HPI Per Admitting Provider Pt is 83 y/o M with PMH HTN, dyslipidemia, CAD s/p stent, COPD, sleep apnea, on 2L oxygen HS, GERD, Steward's esophagus, carotid stenosis, dementia presented to ER with c/o rigors, fever, altered mental status. Most of history obtained from pt's secondary to pt's confusion. Pt's reports pt has had general increased confusion over past several months and was diagnosed with vascular dementia approx 6 weeks ago and started on donepezil. She states past 2 days pt with decreased appetite, dry cough and seemed more weak. She states pt c/o intermittent nausea past couple of days. A couple of days ago had reflux or small vomiting episode after eating. No further vomiting. denies any known choking but states pt takes his pills with applesauce to assist in swallowing. Today with SOB, rigors and fever and increased confusion. Denies falls. States pt has been urinating without complaint. She reports pt often has sensation of needing to have BM couple of times a day, but usually only has one BM a day. T hinks had BM yesterday and doesn't think pt has had any diarrhea. She reports pt had reported THOMAS this morning. Currently pt deneis any THOMAS. reports pt with chronic intermittent back pain. Denies any increased pain. Pt had morning meds today. Denies ill contacts. Reports had influenza vaccine this season. He denies CP or SOB or abdominal pain. hasn't noticed increased LE edema. Admission Exam Per Admitting Provider General: ill appearing elderly male, restless, otherwise no apparent distress, WDWN Head: normocephalic, atraumatic Eyes: PERRL, EOM's intact, conjunctiva non-injected, anicteric ENT: normal inspection external ears, nose, mucous membranes dry Neck: supple, trachea midline, non-tender Lungs: no respiratory distress on 2L oxygen [place] with sat of 95%, rales right base, no wheezing or rhonchi noted CV: RRR, no murmur, 1+ pretibial edema Abd: normal BS, soft, non-tender Ext: no cyanosis, no calf tenderness, ROM bilateral upper and lower extremities Neuro: Alert, oriented to person only, no focal deficits noted Skin: warm, dry Principal Diagnosis Pneumonia Fever Metabolic Encephalopathy Discharge Exam General- No acute distress Head- atraumatic Eyes- PERRL, EOMI, ENT- oropharynx clear Neck- supple, no JVD Lungs- No wheezing, no rales Heart- regular rhythm; no murmur Abdomen- normal bowel sounds, soft, nontender Extremities- no calf tenderness Neuro- alert, oriented x 3; PERRL, EOMI; no facial palsy; no dysarthria Skin- warm & dry Discharge Data Allergies Allergy/AdvReac Type Severity Reaction Status Date / Time fentanyl Allergy Unknown cardiac Verified 01/20/19 12:06 arrest lisinopril Allergy Unknown DOES NOT Verified 01/20/19 12:06 KNOW omeprazole AdvReac Unknown dry mouth Verified 01/20/19 12:06 tiotropium AdvReac Unknown didn't Verified 01/20/19 12:06 work for [place] Consultations 01/20/19 14:05 ED Decision to Admit Stat 01/20/19 17:03 Consult Case Management - Discharge Planning Routine Ordered Studies 01/20/19 14:35 CT head/brain wo con Stat CT head/brain wo con CT DOSE: 638.56 mGycm HISTORY: Mental status change AMS TECHNIQUE: Multiaxial CT images of the head were performed without the use of intravenous contrast. A dose lowering technique was utilized adhering to the principles of ALARA. Comparison: 06/04/2008. Findings: The paranasal sinuses and mastoid air cells are clear. The calvarium and skull base are intact. The ventricles and sulci are within normal limits. There is no mass, hematoma, midline shift, or acute infarct. Impression: No acute intracranial abnormality. Mild age-related chronic small vessel change and atrophy The above report was generated using voice recognition software. It may contain grammatical, syntax or spelling errors. Electronically signed by: Darrion Choudhary M.D. 01/20/2019 3:30 PM Dictated: 01/20/19 1529 Transcribed: 01/20/19 1529 XR chest 1V portable CLINICAL HISTORY: Sepsis dyspnea COMPARISON STUDY: 08/04/2018 FINDINGS: The bones soft tissues and hemidiaphragms are normal. The cardiomediastinal silhouette is normal. The lungs are clear. The pulmonary vasculature is normal. Potential small parenchymal infiltrate peripheral aspect right base IMPRESSION: Small parenchymal infiltrate peripheral aspect right base The above report was generated using voice recognition software. It may contain grammatical, syntax or spelling errors. Electronically signed by: Darrion Choudhary M.D. 01/20/2019 12:33 PM Dictated: 01/20/19 1232 Transcribed: 01/20/19 1232 Hospital Course (1) Sepsis: (2) Pneumonia: (3) Fever: Present on admission with chills, fever, confusion assosicated with SOB Meet sepsis criteria on admission with fever, tachycardia and elevated WBC Mostly due to Pneumonia CXR showed small parenchymal infiltrate peripheral aspect right base Procalcitonin wnl MRSA swab negative Continue on Zosyn and Vanco IV Blood cx no growth Continue oxygen supplement Clinically improves Will change IV abx to Augmentin BID to complete 7 days course of abx (4) Metabolic encephalopathy: CT Head showed no acute changes Stable (5) COPD (chronic obstructive pulmonary disease): Hx COPD Continue duoneb treatment Will resume spiriva AM Continue oxygen supplemental (6) CAD (coronary artery disease): S/P Stent Continue ASA, statin, atenolol Stable (7) HTN (hypertension): BP stable Will resume amlodine and lasix Continue Atenolol Will continue monitor BP (8) Dyslipidemia: Continue statin (9) Sleep apnea: Continue oxygen 2L HS (10) Dementia: Continue donepezil (11) Barretts esophagus: Continue PPI and H2 sukumar (12) Chronic back pain: Hold methocarbamol at this time with confusion Continue meloxicam but close monitoring of renal functions DVT Prophylaxis Heparin SQ CODE STATUS FULL CODE Disposition Will discharge home today Follow up with Dr. Nogueira on 01/26 @ 12:45 PM Total Time Total Time Spent Total Time Spent (In Minutes): 35 minutes Total Time Includes: Examination of the Patient, Discharge Planning, Medication Reconciliation, Communication With Other Providers and Other Discharge Plan Discharge Items Patient Disposition: Home - Self-Care Reason For Visit: PNEUMONIA Discharge Diagnosis: Pneumonia Fever Metabolic Encephalopathy Discharge Goals: Decrease discomfort, Improve disease control, Improve function and Increase independence Activity: Resume your previous activity Activity Comment: as tolerated Non-emergency contact: Primary Care Provider Call non-emergency contact if: you have any medication questions and your temperature is above 101 Follow-up/Referrals: PCP,NO [Primary Care Provider] - Diet: Heart Healthy Addtl Provider Instructions: Follow up with your primary care provider Dr. Nogueira on 01/26 @ 12:45 PM Complete the course of antibiotic with Augmentin Fall precaution Prescriptions: New amoxicillin-pot clavulanate 875-125 mg Tablet 1 tab PO BIDM 5 Days Qty: 10 RF: 0 Continued amlodipine 5 mg Tablet 5 mg PO DAILY RF: 0 atenolol 25 mg Tablet 25 mg PO DAILY RF: 0 esomeprazole magnesium 40 mg Capsule,Delayed Release(Dr/Ec) 40 mg PO BID RF: 0 furosemide 20 mg Tablet 20 mg PO DAILY RF: 0 aspirin [Aspir-81] 81 mg Tablet,Delayed Release (Dr/Ec) 81 mg PO DAILY RF: 0 ranitidine HCl 150 mg Tablet 150 mg PO BID RF: 0 potassium chloride 20 mEq Tablet Extended Release 20 meq PO DAILY RF: 0 fluticasone [Flonase Allergy Relief] 50 mcg/actuation Sulphur,Suspension 1 spray INTRANASAL DAILY RF: 0 cetirizine 10 mg Tablet 10 mg PO DAILY RF: 0 atorvastatin 80 mg Tablet 80 mg PO PM RF: 0 albuterol sulfate [Ventolin HFA] 90 mcg/actuation Hfa Aerosol Inhaler 2 puff INHALATION Q6H PRN (Reason: Shortness Of Breath) RF: 0 methocarbamol 500 mg Tablet 500 mg PO BID RF: 0 meloxicam 15 mg Tablet 15 mg PO DAILY RF: 0 nitroglycerin [Nitrostat] 0.4 mg Tablet, Sublingual 0.4 mg Sublingual UD RF: 0 PreserVision AREDS-2 [id number] Capsule 1 tab PO BID RF: 0 donepezil 10 mg Tablet 10 mg PO DAILY RF: 0 Stiolto Respimat 2.5-2.5 mcg/actuation Mist 1 puff INHALATION DAILY RF: 0 Stand-Alone Forms: [facility] Discharge Orders: Discharge Order (Routine); Ordered 01/22/19 Ordered By: Octavio Jones Admission Data Admit Date/Time: 01/20/19 15:57 Attending Provider: Octavio Jones Admit Provider: Octavio Jones Primary Care Provider: PCPARNOLDO Service: Telemetry Medical Other Interventions: Discharge Summary Assessment (RN) Last Done: 01/22/19 12:58 DC Date/Time DO NOT enter until pt leaves facility: 01/22/19 13:22
== END 2019-01-22 13:22 | disposition home or self-care (01) | DRG 871 ==
LOC: ED 11:40 → 2W 15:57
DX: Z88.8 Allergy status to other drugs, medicaments and biological substances; R40.2412 Glasgow coma scale score 13-15, at arrival to emergency department; Z88.5 Allergy status to narcotic agent; G93.41 Metabolic encephalopathy; J44.9 Chronic obstructive pulmonary disease, unspecified; Z51.81 Encounter for therapeutic drug level monitoring; I10 Essential (primary) hypertension; I25.10 Atherosclerotic heart disease of native coronary artery without angina pectoris; M54.9 Dorsalgia, unspecified; I65.29 Occlusion and stenosis of unspecified carotid artery; Z95.5 Presence of coronary angioplasty implant and graft; K22.70 Barrett's esophagus without dysplasia; Z79.82 Long term (current) use of aspirin; J18.9 Pneumonia, unspecified organism; F03.91 Unspecified dementia, unspecified severity, with behavioral disturbance; G47.30 Sleep apnea, unspecified; R09.02 Hypoxemia; A41.9 Sepsis, unspecified organism; G89.29 Other chronic pain; E78.5 Hyperlipidemia, unspecified; Z79.899 Other long term (current) drug therapy; Z79.1 Long term (current) use of non-steroidal anti-inflammatories (NSAID)

== ENCOUNTER 2022-09-11 12:28 | Inpatient (IN) ==
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
--- NOTE | 2022-09-11 14:39 | XRay Report ---
XR chest 1V portable CLINICAL HISTORY: weakness TECHNIQUE: Single frontal radiograph of the chest was obtained. Comparison: Comparison is made to chest radiograph 01/20/2019 FINDINGS: No lines and tubes are seen. Calcified aortic knob is seen. There is nodular densities are seen bilat erally in the lungs, appearance is similar to prior exam. Interstitial thickening is noted. Atelectas is is noted in the right lung base. No evidence of pleural effusion or pneumothorax. IMPRESSION: 1. No acute abnormalities are seen. 2. Numerous nodular densities are seen bilaterally. Comparison with outside imaging, if available, i s recommended, otherwise nonemergent CT chest can be performed for further evaluation. ACT 112: Negative or not required by law. Electronically signed by: Jerel Jimenez M.D. 09/11/2022 2:37 PM
--- NOTE | 2022-09-11 14:40 | CT Scan Report ---
CT head/brain wo con CLINICAL HISTORY: increasing confusion Technique: Contiguous axial CT images of the head were acquired from the base of the skull to the ana michelle without intravenous contrast administration. Images were viewed in brain, subdural and bone [facility]. Automated dose lowering techniques and/or adjustment according to patient size were utilized for this exam. Comparison: Comparison is made to CT head 01/20/2019 Findings: Areas of decreased attenuation are present in the periventricular and subcortical white matter bilate rally consistent with small vessel ischemic disease. Generalized cerebral atrophy with commensurate e nlargement of the ventricles, sulci, and cisterns is also present. There is no acute intracranial hem orrhage or evidence of acute territorial infarction. No shift of the midline structures, mass effect, or extra-axial abnormalities are shown. Atherosclerotic calcifications are present in the intracran ial segments of the internal carotid arteries. Left parietal encephalomalacia is identified. Imaged portions of the paranasal sinuses and mastoid air cells are clear. The orbits appear normal. There are no acute fractures of the calvaria or scalp swelling. Impression: No acute intracranial hemorrhage, no evidence of acute territorial infarction or other acute intracra nial disease process. ACT 112: Negative or not required by law. Electronically signed by: Jerel Jimenez M.D. 09/11/2022 2:38 PM
[2022-09-11 14:41] LABS: Basophils % (auto) 1.2 %; Eosinophils # (auto) 0.24 K/uL (0-0.50); Eosinophils % (auto) 2.8 %; Hematocrit (blood only) 38.9 % (40.1-51.0); Hemoglobin 13.3 g/dl (14.0-18.0); Immature Granulocytes # (auto) 0.01 K/uL (0.00-0.02); Immature Granulocytes % (auto) 0.1 %; Lymphocytes # (auto) 1.98 K/uL (1.2-3.4); Mean Corpuscular Hemoglobin 33.2 pg (25.0-34.0); Mean Corpuscular Hgb Conc 34.2 g/dL (32.0-36.0); Monocytes # (auto) 0.83 K/uL (0.24-0.82); Monocytes % (auto) 9.6 %; Neutrophils # (auto) 5.45 K/uL (1.4-6.5); Neutrophils % (auto) 63.3 %; Platelet Count 331 K/uL (130-400); RDW Coefficient of Variation 13.9 % (11.5-14.5); RDW Standard Deviation 49.9 fL (36.4-46.3); Red Blood Count 4.01 M/uL (4.63-6.08); White Blood Count 8.61 K/ul (4.8-10.8)
[2022-09-11 15:15] LABS: Troponin I High Sensitivity 8.8 pg/ml (0-20)
[2022-09-11 15:16] LABS: Alanine Aminotransferase 20 U/L (7-52); Albumin Globulin Ratio 0.8 (0.9-2); Albumin Level 3.6 gm/dl (3.4-5.0); Alkaline Phosphatase 146 U/L (34-104); Anion Gap 5 (3-11); Aspartate Aminotransferase 23 U/L (13-39); Bilirubin,Total 0.6 mg/dl (0.2-1.0); Blood Urea Nitrogen 20 mg/dl (6-23); Calcium 9.4 mg/dl (8.5-10.1); Carbon Dioxide 32 mmol/L (21-32); Chloride 106 mmol/L (98-107); Est GFR (African American) 87.5 ml/min; Est GFR (Non-African American) 75.5 ml/min; Globulin 4.5 gm/dl (2.5-4.0); Glucose 100 mg/dl (70-99(Fasting)); Magnesium 2.2 mg/dl (1.7-2.4); Potassium 3.9 mmol/L (3.5-5.1); Sodium 143 mmol/L (136-145); Total Protein 8.1 gm/dl (6.0-8.3)
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
[2022-09-11 16:28] LABS: Appearance Urine Clear (Clear); Bilirubin Urine Negative (Negative); Blood Urine Negative (Negative); Color Urine Yellow; Glucose Urine UA Negative (Negative); Ketones Urine Negative (Negative); Leukocyte Esterase Urine Negative (Negative); Nitrite Urine Negative (Negative); Protein Urine Negative (Negative); Specific Gravity Urine 1.016 (1.000-1.030); Urobilinogen Urine Negative (Negative)
[2022-09-11] MEDS ORDERED: ONDANSETRON INJ 2 MG/ML 2 ML VIAL IV PRN (18:23)
[2022-09-11] MEDS ORDERED: POLYETHYLENE (MIRALAX) 17 GM PACK PO PRN (18:23)
[2022-09-11] MEDS ORDERED: OLANZapine 10 MG/2.1 ML SDV IM STA (19:14)
[2022-09-11] MEDS: LIDOCAINE 5% 1 PATCH TD SCH (19:30)
[2022-09-11] MEDS: MEMANTINE HCL 10 MG TAB PO SCH (20:36)
[2022-09-11] MEDS: QUEtiapine FUMARATE 25 MG TABLET PO SCH (20:36)
[2022-09-11] MEDS: ACETAMINOPHEN 500 MG TAB PO SCH (20:36)
[2022-09-11] MEDS: traZODone HCL 50 MG TAB PO SCH (20:37)
[2022-09-11] MEDS: PANTOprazole 40 MG TAB PO SCH (20:37)
[2022-09-11] MEDS: ATORVASTATIN 40 MG TAB PO SCH (20:37)
[2022-09-11] MEDS: HEPARIN SOD 5,000 UNIT/0.5 ML VIAL SQ SCH (22:32)
[2022-09-11] MEDS: OLANZapine 10 MG/2.1 ML SDV IM PRN (23:29)
[2022-09-12] MEDS: ACETAMINOPHEN 500 MG TAB PO SCH ×3 (04:25→20:14)
[2022-09-12] MEDS: HEPARIN SOD 5,000 UNIT/0.5 ML VIAL SQ SCH ×3 (05:56→20:13)
--- NOTE | 2022-09-12 07:10 | Electrocardiogram Report ---
Test Reason : Blood Pressure : / mmHG Vent. Rate : 062 BPM Atrial Rate : 062 BPM P-R Int : 218 ms QRS Dur : 150 ms QT Int : 466 ms P-R-T Axes : 060 -84 059 degrees QTc Int : 472 ms Sinus rhythm with 1st degree A-V block Right bundle branch block Left anterior fascicular block Bifascicular block Abnormal ECG When compared with ECG of 21-JAN-2019 07:07, No significant change was found Confirmed by Luis Enrique Garcia ([id number]) on 09/12/2022 7:10:38 AM Referred By: REFERRED SELF Confirmed By:Yared Garcia
[2022-09-12 08:16] LABS: Hematocrit (blood only) 39.5 % (40.1-51.0); Hemoglobin 13.4 g/dl (14.0-18.0); Mean Corpuscular Hemoglobin 32.8 pg (25.0-34.0); Mean Corpuscular Hgb Conc 33.9 g/dL (32.0-36.0); Mean Corpuscular Volume 96.6 fL (80.0-100.0); Mean Platelet Volume 8.7 fL (9.4-12.4); Platelet Count 323 K/uL (130-400); RDW Coefficient of Variation 13.4 % (11.5-14.5); Red Blood Count 4.09 M/uL (4.63-6.08); White Blood Count 7.48 K/ul (4.8-10.8)
[2022-09-12 09:10] LABS: BUN Creatinine Ratio 20.5 (10-20); Creatinine Clr Calc Pharmacy 57.4 ml/min; Est GFR (African American) 96.7 ml/min; Est GFR (Non-African American) 83.4 ml/min; Potassium 3.7 mmol/L (3.5-5.1)
[2022-09-12] MEDS: QUEtiapine FUMARATE 25 MG TABLET PO SCH ×3 (10:00→20:15)
--- NOTE | 2022-09-12 11:41 | Psychiatric Consultation ---
Date of Consultation September 12, 2022 Impression / Recommendations Impression 87 yo male with hx of dementia, increased agitation despite Seroquel 50 mg BID due to combination of progressive cognitive change, sundowning, and hypoxia. (1) Dementia with behavioral disturbance: Plan will attempt TID dosing of Seroquel to better target sundowning appears to ambulate with walker at home, if becomes more active here will need to confirm no orthostasis as increases fall risk consider d/c trazodone in favor of higher dose of Seroquel hs (if needed) to minimize polypharmacy Zyprexa 2.5 mg IM prn as ordered by hospitalist service seems appropriate agree benefits of management of agitation/quality of life with atypical antipsychotic outweigh risks to elderly dementia patient at this point for this patient Psych History Identifying Data 87 yo male from [place], dx dementia 4 years ago, admit medically as increasingly agitated/hypoxic/unable to be maintained at home. Consult is by hospitalist service for assistance in medication management. Chief Complaint dementia with behavioral disturbance History of Present Illness Patient has no prior psychiatric hx prior to onset of his dementia. He is having issues with O2 sat and won't comply with oxygen, became combative with staff last pm with desats to 80s. Required IM Zyprexa 2.5 mg x2 for hit/kick staff and placed on 1-on-1. Seroquel dose was increased on an outpatient basis but still sundowning. Patient is unable to provide hx due to his dementia and seemingly aphasia so details were confirmed by liaison with caregiver. Allergies Allergy/AdvReac Type Severity Reaction Status Date / Time fentanyl Allergy Unknown cardiac Verified 09/11/22 16:54 arrest lisinopril Allergy Unknown DOES NOT Verified 09/11/22 16:54 KNOW omeprazole AdvReac Unknown dry mouth Verified 09/11/22 16:54 tiotropium AdvReac Unknown didn't Verified 09/11/22 16:54 work for ok formoterol AdvReac anxiety, Verified 09/11/22 16:55 insomnia Home Medications Medication Instructions Recorded Confirmed Type Dexamethasone/Polymyx/Neomycin 1 applic OPB BID 09/11/22 09/11/22 History Galantamine Hydrobromide 24 mg PO DAILY 09/11/22 09/11/22 History amlodipine 5 mg tablet 5 mg PO DAILY 09/11/22 09/11/22 History aspirin 81 mg tablet,delayed 81 mg PO DAILY 09/11/22 09/11/22 History release atenolol 25 mg tablet 12.5 mg PO DAILY 09/11/22 09/11/22 History atorvastatin 80 mg tablet 80 mg PO HS 09/11/22 09/11/22 History cetirizine 10 mg tablet 10 mg PO DAILY 09/11/22 09/11/22 History cyanocobalamin (vitamin B-12) 1,000 mcg IM .MONTH 09/11/22 09/11/22 History 1,000 mcg/mL injection solution esomeprazole magnesium 40 mg 40 mg PO BID 09/11/22 09/11/22 History capsule,delayed release (Nexium) furosemide 20 mg tablet (Lasix) 20 mg PO DAILY 09/11/22 09/11/22 History memantine 10 mg tablet 10 mg PO BID 09/11/22 09/11/22 History quetiapine 100 mg tablet 50 mg PO BID 09/11/22 09/11/22 History trazodone 50 mg tablet 50 mg PO HS 09/11/22 09/11/22 History umeclidinium 62.5 mcg-vilanterol 1 inh inhalation DAILY 09/11/22 09/11/22 History 25 mcg/actuation powdr for inhalation (Anoro Ellipta) vit C 250 mg-vit E 90 mg-zinc 40 1 tab PO BID 09/11/22 09/11/22 History mg-copper 1 [id number] capsule (PreserVision AREDS-2) Personal History Beliefs That Will Affect Care: None Patient History Medical History Barretts esophagus CAD (coronary artery disease) Carotid stenosis Chronic back pain COPD (chronic obstructive pulmonary disease) Dementia with behavioral disturbance Dyslipidemia GERD (gastroesophageal reflux disease) GERD (gastroesophageal reflux disease) HTN (hypertension) Sleep apnea 2L O2 HS Surgical History H/O heart artery stent H/O heart artery stent History of cholecystectomy History of partial colectomy right splenic colonic resection, incidental appendectomy 08/2011 at [facility] Family History Other Heart disease Social History Smoking Status: Unknown if ever smoked Second Hand Exposure: No; Hx Alcohol Use: Yes Hx Substance Use: No Preferred Language: Gibraltarian Communication Ability: Dementia Communication Ability Comment: Cognitively impaired 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 As miminal cogwheeling upper extremities and baseline tremor or tongue/feet. Vital Signs (Past 24 Hours): Last Vital Signs Temp 36.2 C L 09/12/22 07:00 Pulse 66 09/12/22 07:00 Resp 16 09/12/22 07:00 BP 130/61 09/12/22 07:00 Pulse Ox 91 09/12/22 07:00 O2 Del Method 09/12/22 08:26 O2 Flow Rate 2 09/11/22 19:12 Review of Systems Unobtainable due to cognitive status Results & Data (PSY) Laboratory Results 09/12/22 09/12/22 09/11/22 Range/Units 07:54 07:54 16:15 WBC 7.48 (4.8-10.8) K/ul RBC 4.09 L (4.63-6.08) M/uL Hgb 13.4 L (14.0-18.0) g/dl Hct 39.5 L (40.1-51.0) % MCV 96.6 (80.0-100.0) fL MCH 32.8 (25.0-34.0) pg MCHC 33.9 (32.0-36.0) g/dL RDW Std Deviation 48.0 H (36.4-46.3) fL RDW Coeff of Kristina 13.4 (11.5-14.5) % Plt Count 323 (130-400) K/uL MPV 8.7 L (9.4-12.4) fL Immature Gran % (Auto) % Neut % (Auto) % Lymph % (Auto) % Edmonson % (Auto) % Eos % (Auto) % Baso % (Auto) % Neut # (Auto) (1.4-6.5) K/uL Lymph # (Auto) (1.2-3.4) K/uL Edmonson # (Auto) (0.24-0.82) K/uL Eos # (Auto) (0-0.50) K/uL Baso # (Auto) (0-0.2) K/uL Immature Gran # (Auto) (0.00-0.02) K/uL Sodium 142 (136-145) mmol/L Potassium 3.7 (3.5-5.1) mmol/L Chloride 105 (98-107) mmol/L Carbon Dioxide 31 (21-32) mmol/L Anion Gap 6 (3-11) BUN 15 (6-23) mg/dl Creatinine 0.73 (0.6-1.4) mg/dl Est Cr Clr Drug Dosing 57.4 Est GFR ( Amer) 96.7 ml/min Est GFR (Non-Af Amer) 83.4 ml/min BUN/Creatinine Ratio 20.5 H (10-20) Glucose 103 H (70-99(Fasting)) mg/dl Calcium 9.0 (8.5-10.1) mg/dl Magnesium (1.7-2.4) mg/dl Total Bilirubin (0.2-1.0) mg/dl AST (13-39) U/L ALT (7-52) U/L Alkaline Phosphatase (34-104) U/L Troponin I High Sens (0-20) pg/ml Total Protein (6.0-8.3) gm/dl Albumin (3.4-5.0) gm/dl Globulin (2.5-4.0) gm/dl Albumin/Globulin Ratio (0.9-2) TSH (0.300-4.500) uIu/ml Urine Color Yellow Urine Appearance Clear (Clear) Urine pH 6.0 (4.5-7.5) Ur Specific Alpine 1.016 (1.000-1.030) Urine Protein Negative (Negative) Urine Glucose (UA) Negative (Negative) Urine Ketones Negative (Negative) Urine Blood Negative (Negative) Urine Nitrite Negative (Negative) Urine Bilirubin Negative (Negative) Urine Urobilinogen Negative (Negative) Ur Leukocyte Esterase Negative (Negative) SARS-CoV-2, RNA, NAAT (NEGATIVE) 09/11/22 09/11/22 09/11/22 Range/Units 14:45 14:13 14:13 WBC (4.8-10.8) K/ul RBC (4.63-6.08) M/uL Hgb (14.0-18.0) g/dl Hct (40.1-51.0) % MCV (80.0-100.0) fL MCH (25.0-34.0) pg MCHC (32.0-36.0) g/dL RDW Std Deviation (36.4-46.3) fL RDW Coeff of Kristina (11.5-14.5) % Plt Count (130-400) K/uL MPV (9.4-12.4) fL Immature Gran % (Auto) % Neut % (Auto) % Lymph % (Auto) % Edmonson % (Auto) % Eos % (Auto) % Baso % (Auto) % Neut # (Auto) (1.4-6.5) K/uL Lymph # (Auto) (1.2-3.4) K/uL Edmonson # (Auto) (0.24-0.82) K/uL Eos # (Auto) (0-0.50) K/uL Baso # (Auto) (0-0.2) K/uL Immature Gran # (Auto) (0.00-0.02) K/uL Sodium 143 (136-145) mmol/L Potassium 3.9 (3.5-5.1) mmol/L Chloride 106 (98-107) mmol/L Carbon Dioxide 32 (21-32) mmol/L Anion Gap 5 (3-11) BUN 20 (6-23) mg/dl Creatinine 0.91 (0.6-1.4) mg/dl Est Cr Clr Drug Dosing Not Reportable Est GFR ( Amer) 87.5 ml/min Est GFR (Non-Af Amer) 75.5 ml/min BUN/Creatinine Ratio 22.0 H (10-20) Glucose 100 H (70-99(Fasting)) mg/dl Calcium 9.4 (8.5-10.1) mg/dl Magnesium 2.2 (1.7-2.4) mg/dl Total Bilirubin 0.6 (0.2-1.0) mg/dl AST 23 (13-39) U/L ALT 20 (7-52) U/L Alkaline Phosphatase 146 H (34-104) U/L Troponin I High Sens 8.8 (0-20) pg/ml Total Protein 8.1 (6.0-8.3) gm/dl Albumin 3.6 (3.4-5.0) gm/dl Globulin 4.5 H (2.5-4.0) gm/dl Albumin/Globulin Ratio 0.8 L (0.9-2) TSH 1.480 (0.300-4.500) uIu/ml Urine Color Urine Appearance (Clear) Urine pH (4.5-7.5) Ur Specific Alpine (1.000-1.030) Urine Protein (Negative) Urine Glucose (UA) (Negative) Urine Ketones (Negative) Urine Blood (Negative) Urine Nitrite (Negative) Urine Bilirubin (Negative) Urine Urobilinogen (Negative) Ur Leukocyte Esterase (Negative) SARS-CoV-2, RNA, NAAT NEGATIVE (NEGATIVE) 09/11/22 Range/Units 14:13 WBC 8.61 (4.8-10.8) K/ul RBC 4.01 L (4.63-6.08) M/uL Hgb 13.3 L (14.0-18.0) g/dl Hct 38.9 L (40.1-51.0) % MCV 97.0 (80.0-100.0) fL MCH 33.2 (25.0-34.0) pg MCHC 34.2 (32.0-36.0) g/dL RDW Std Deviation 49.9 H (36.4-46.3) fL RDW Coeff of Kristina 13.9 (11.5-14.5) % Plt Count 331 (130-400) K/uL MPV 9.0 L (9.4-12.4) fL Immature Gran % (Auto) 0.1 % Neut % (Auto) 63.3 % Lymph % (Auto) 23.0 % Edmonson % (Auto) 9.6 % Eos % (Auto) 2.8 % Baso % (Auto) 1.2 % Neut # (Auto) 5.45 (1.4-6.5) K/uL Lymph # (Auto) 1.98 (1.2-3.4) K/uL Edmonson # (Auto) 0.83 H (0.24-0.82) K/uL Eos # (Auto) 0.24 (0-0.50) K/uL Baso # (Auto) 0.10 (0-0.2) K/uL Immature Gran # (Auto) 0.01 (0.00-0.02) K/uL Sodium (136-145) mmol/L Potassium (3.5-5.1) mmol/L Chloride (98-107) mmol/L Carbon Dioxide (21-32) mmol/L Anion Gap (3-11) BUN (6-23) mg/dl Creatinine (0.6-1.4) mg/dl Est Cr Clr Drug Dosing Est GFR ( Amer) ml/min Est GFR (Non-Af Amer) ml/min BUN/Creatinine Ratio (10-20) Glucose (70-99(Fasting)) mg/dl Calcium (8.5-10.1) mg/dl Magnesium (1.7-2.4) mg/dl Total Bilirubin (0.2-1.0) mg/dl AST (13-39) U/L ALT (7-52) U/L Alkaline Phosphatase (34-104) U/L Troponin I High Sens (0-20) pg/ml Total Protein (6.0-8.3) gm/dl Albumin (3.4-5.0) gm/dl Globulin (2.5-4.0) gm/dl Albumin/Globulin Ratio (0.9-2) TSH (0.300-4.500) uIu/ml Urine Color Urine Appearance (Clear) Urine pH (4.5-7.5) Ur Specific Alpine (1.000-1.030) Urine Protein (Negative) Urine Glucose (UA) (Negative) Urine Ketones (Negative) Urine Blood (Negative) Urine Nitrite (Negative) Urine Bilirubin (Negative) Urine Urobilinogen (Negative) Ur Leukocyte Esterase (Negative) SARS-CoV-2, RNA, NAAT (NEGATIVE) Medications Administered Acetaminophen (Acetaminophen 500 Mg Tab) 1,000 mg PO Q8H SADA Stop: 10/11/22 19:59 Last Admin: 09/12/22 04:25 Dose: Not Given Documented By: LONG TERM Admin: 09/11/22 20:36 Dose: 1,000 mg Documented By: DERIK Atorvastatin Calcium (Atorvastatin 40 Mg Tab) 80 mg PO HS [facility] Stop: 10/11/22 20:59 Last Admin: 09/11/22 20:37 Dose: 80 mg Documented By: DERIK Heparin Sodium (Porcine) (Heparin Sod 5,000 Unit/0.5 Ml Vial) 5,000 units SQ Q8 [facility] Stop: 10/11/22 21:59 Last Admin: 09/12/22 05:56 Dose: 5,000 units Documented By: Admin: 09/11/22 22:32 Dose: Not Given Documented By: DERIK Lidocaine (Lidocaine 5% 1 Patch) 1 patch TD QAM [facility] Stop: 10/11/22 17:29 Last Admin: 09/11/22 19:30 Dose: Not Given Documented By: DERIK Memantine (Memantine Hcl 10 Mg Tab) 10 mg PO BID [facility] Stop: 10/11/22 20:59 Last Admin: 09/11/22 20:36 Dose: 10 mg Documented By: DERIK Miscellaneous (Remove Lidoderm Patch) 1 each N/A DAILY@2100 [facility] Stop: 10/11/22 20:59 Last Admin: 09/11/22 22:32 Dose: Not Given Documented By: DERIK Wintersaneous (*Maxitrol*Order Awaiting Action) 1 each N/A QS [facility] Stop: 10/12/22 00:00 Last Admin: 09/12/22 01:54 Dose: Not Given Documented By: DERIK Olanzapine (Olanzapine 10 Mg/2.1 Ml Sdv) 2.5 mg IM Q4H PRN PRN Reason: Anxiety/Agitation Stop: 10/11/22 23:14 Last Admin: 09/11/22 23:29 Dose: 2.5 mg Documented By: DERIK Pantoprazole Sodium (Pantoprazole 40 Mg Tab) 40 mg PO BID [facility]; Protocol Stop: 10/11/22 20:59 Last Admin: 09/11/22 20:37 Dose: 40 mg Documented By: DERIK Quetiapine Fumarate (Quetiapine Fumarate 25 Mg Tablet) 50 mg PO BID [facility] Stop: 10/11/22 20:59 Last Admin: 09/11/22 20:36 Dose: 50 mg Documented By: DERIK Trazodone HCl (Trazodone Hcl 50 Mg Tab) 50 mg PO HS [facility] Stop: 10/11/22 20:59 Last Admin: 09/11/22 20:37 Dose: 50 mg Documented By: DERIK Coding Level of Care Code 61778 U Intl Hosp Care Lvl 2 Diagnoses Dementia with behavioral disturbance F03.918
[2022-09-12] MEDS: MEMANTINE HCL 10 MG TAB PO SCH ×2 (12:47→20:14)
[2022-09-12] MEDS: ASPIRIN 81 MG ECTAB PO SCH (12:47)
[2022-09-12] MEDS: ATENOLOL 25 MG TABLET PO SCH (12:48)
[2022-09-12] MEDS: amLODIPine BESYLATE 5 MG TAB PO SCH (12:48)
[2022-09-12] MEDS: CETIRIZINE HCL 10 MG TABLET PO SCH (12:49)
[2022-09-12] MEDS: FUROSEMIDE 20 MG TAB PO SCH (12:49)
[2022-09-12] MEDS: CEROVITE ADV FORMULA TAB PO SCH (12:49)
[2022-09-12] MEDS: PANTOprazole 40 MG TAB PO SCH ×2 (12:50→20:14)
[2022-09-12] MEDS: UMECLIDINIUM/VILANTEROL 62.5/25MCG 7 PUFFS/INHALER INH SCH (12:51)
[2022-09-12] MEDS: GALANTAMINE HYDROBROMIDE 8 MG CAPER PO SCH (12:51)
[2022-09-12] MEDS: LIDOCAINE 5% 1 PATCH TD SCH (13:29)
--- NOTE | 2022-09-12 14:10 | Hospitalist Progress Note ---
Date of Service September 12, 2022 Assessment & Plan (1) Agitation due to dementia: (2) Dementia with behavioral disturbance: (3) CAD (coronary artery disease): (4) Carotid stenosis: (5) COPD (chronic obstructive pulmonary disease): (6) Sleep apnea: (7) HTN (hypertension): (8) GERD (gastroesophageal reflux disease): (9) Barretts esophagus: Plan: This is an 87yo M with a PMH of dementia with behavioral disturbance, HTN, dyslipidemia, CAD s/p stent, COPD, sleep apnea on 2L oxygen HS, GERD, Steward's esophagus, carotid stenosis who presented 09/11 with worsening agitation and hallucinations. 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 Appreciate case management weighing in on placement options Patient's was at bedside during admission who stated that patient has been getting weaker, decreasing appetite and has been falling since last several months. Patient had fell 6 times in the last 6 months, last 1 was 2 weeks ago WALL CRANE OPERATOR. Neurology increased Seroquel from 25 milligrams twice daily to 50 twice daily 1 month ago WALL CRANE OPERATOR. Also on memantine, galantamine Admitting Work up - Vitals and lab work essentially unremarkable, CT head without acute intracranial abnormality, chest x-ray without acute abnormality. Presence of numerous nodular densities with radiology recommending CT chest. Admitting blood culture pending admitting UA negative for UTI. Psychiatry consulted for help optimizing medical regimen for severe dementia,, appreciate recommendation. Fall, aspiration precautions COPD JUAN Continue Anoro Ellipta inhaler, 2L supplemental O2 HS Recent fall with R flank pain Pain contributing to agitation? Trial of lidocaine, scheduled tylenol CAD (coronary artery disease) S/P Stent EKG with bifascicular block - unchanged from previous Continue ASA, statin, atenolol HTN (hypertension) Continue amlodipine, lasix, atenolol Dyslipidemia Continue statin DVT Ppx: SQ heparin Code status: FULL PCP: [facility] in [place] (Dr. Clarke) Dispo: Admit to med/surg , PT/OT, likely will need placement. (10) Falls: Admission and Anticipated Discharge Date Admission Date: September 11, 2022 Subjective Patient seen and examined at bedside as a follow-up of agitation due to dementia and dementia with behavioral disturbances. Patient was lying in bed, alert but confused, half naked, one-to-one observation on board, needed as needed Zyprexa overnight for agitation. ROS n/a due to confusion. Incomprehensible. Physical Exam Physical Exam: GENERAL: alert, confused, NAD, on RA. Half naked. One-to- One observation in room. Appears ill/frail/weak HEENT: No pallor, no icterus. Pupils equal, round and reactive to light. Oral mucosa moist. NECK: No JVD, no neck masses. HEART: S1 and S2 heard. Regular rate and rhythm. No murmur, no gallop. RESPIRATORY SYSTEM: Normal AP diameter. No accessory muscle use. No wheezing, no crackles. ABDOMEN: Soft, bowel sounds present, no facial grimmacing, no distention. Rt flank bruise, doesn't appear tender. CENTRAL NERVOUS SYSTEM: No facial droop. Speech is clear. Obeys simple commands. Moves extremities. EXTREMITIES: No edema, no erythema seen. Results & Data Results & Data ([facility]) Vital Signs (Past 12 Hours) Vital Signs Temp Pulse Resp BP Pulse Ox O2 Del Method 09/12/22 08:26 Room Air 09/12/22 07:00 36.2 C L 66 16 130/61 91 Room Air (1) Falls Encounter type: initial encounter Qualified Code(s): W19.XXXA - Unspecified fall, initial encounter
[2022-09-12] MEDS: ATORVASTATIN 40 MG TAB PO SCH (20:14)
[2022-09-12] MEDS: traZODone HCL 50 MG TAB PO SCH (20:14)
[2022-09-12] MEDS: OLANZapine 10 MG/2.1 ML SDV IM PRN (20:35)
[2022-09-13] MEDS: ACETAMINOPHEN 500 MG TAB PO SCH ×3 (06:04→19:43)
[2022-09-13] MEDS: HEPARIN SOD 5,000 UNIT/0.5 ML VIAL SQ SCH ×3 (06:04→22:33)
[2022-09-13 07:48] LABS: Hematocrit (blood only) 38.5 % (40.1-51.0); Hemoglobin 13.1 g/dl (14.0-18.0); Mean Corpuscular Hemoglobin 32.8 pg (25.0-34.0); Mean Corpuscular Volume 96.3 fL (80.0-100.0); Platelet Count 328 K/uL (130-400); RDW Coefficient of Variation 13.3 % (11.5-14.5); RDW Standard Deviation 47.4 fL (36.4-46.3); White Blood Count 8.36 K/ul (4.8-10.8)
[2022-09-13 08:29] LABS: BUN Creatinine Ratio 20.3 (10-20); Calcium 8.9 mg/dl (8.5-10.1); Est GFR (African American) 93.6 ml/min; Est GFR (Non-African American) 80.7 ml/min; Magnesium 2.1 mg/dl (1.7-2.4); Phosphorus 3.3 mg/dl (2.5-4.9); Potassium 3.6 mmol/L (3.5-5.1)
[2022-09-13] MEDS: ATENOLOL 25 MG TABLET PO SCH (09:14)
[2022-09-13] MEDS: amLODIPine BESYLATE 5 MG TAB PO SCH (09:14)
[2022-09-13] MEDS: CETIRIZINE HCL 10 MG TABLET PO SCH (09:15)
[2022-09-13] MEDS: FUROSEMIDE 20 MG TAB PO SCH (09:16)
[2022-09-13] MEDS: ASPIRIN 81 MG ECTAB PO SCH (09:16)
[2022-09-13] MEDS: GALANTAMINE HYDROBROMIDE 8 MG CAPER PO SCH (09:17)
[2022-09-13] MEDS: MEMANTINE HCL 10 MG TAB PO SCH ×2 (09:18→19:44)
[2022-09-13] MEDS: CEROVITE ADV FORMULA TAB PO SCH (09:18)
[2022-09-13] MEDS: PANTOprazole 40 MG TAB PO SCH ×2 (09:19→19:44)
[2022-09-13] MEDS: QUEtiapine FUMARATE 25 MG TABLET PO SCH ×3 (09:19→19:44)
[2022-09-13] MEDS: UMECLIDINIUM/VILANTEROL 62.5/25MCG 7 PUFFS/INHALER INH SCH (09:27)
[2022-09-13] MEDS: LIDOCAINE 5% 1 PATCH TD SCH (09:35)
--- NOTE | 2022-09-13 16:43 | Hospitalist Progress Note ---
Date of Service September 13, 2022 Assessment & Plan (1) Agitation due to dementia: (2) Dementia with behavioral disturbance: (3) CAD (coronary artery disease): (4) Carotid stenosis: (5) COPD (chronic obstructive pulmonary disease): (6) Sleep apnea: (7) HTN (hypertension): (8) GERD (gastroesophageal reflux disease): (9) Barretts esophagus: Plan: This is an 87yo M with a PMH of dementia with behavioral disturbance, HTN, dyslipidemia, CAD s/p stent, COPD, sleep apnea on 2L oxygen HS, GERD, Steward's esophagus, carotid stenosis who presented 09/11 with worsening agitation and hallucinations. 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 Appreciate case management weighing in on placement options Patient's was at bedside during admission who stated that patient has been getting weaker, decreasing appetite and has been falling since last several months. Patient had fell 6 times in the last 6 months, last 1 was 2 weeks ago COMPLIANCE SPECIALIST. Neurology increased Seroquel from 25 milligrams twice daily to 50 twice daily 1 month ago COMPLIANCE SPECIALIST. Also on memantine, galantamine Admitting Work up - Vitals and lab work essentially unremarkable, CT head without acute intracranial abnormality, chest x-ray without acute abnormality. Presence of numerous nodular densities with radiology recommending CT chest. Admitting blood culture pending admitting UA negative for UTI. Psychiatry consulted for help optimizing medical regimen for severe dementia,, appreciate recommendation. Fall, aspiration precautions COPD JUAN Continue Anoro Ellipta inhaler, 2L supplemental O2 HS Recent fall with R flank pain Pain contributing to agitation? Trial of lidocaine, scheduled tylenol CAD (coronary artery disease) S/P Stent EKG with bifascicular block - unchanged from previous Continue ASA, statin, atenolol HTN (hypertension) Continue amlodipine, lasix, atenolol Dyslipidemia Continue statin DVT Ppx: SQ heparin Code status: FULL PCP: [facility] in [place] (Dr. Clarke) Dispo: Admit to med/surg , PT/OT, can dc to placement. (10) Falls: Admission and Anticipated Discharge Date Admission Date: September 11, 2022 Subjective Patient seen and examined at bedside as a follow-up of agitation due to dementia and dementia with behavioral disturbances. Patient was lying in bed, confused, by bedside, needed as needed Zyprexa overnight for agitation. ROS n/a due to confusion. Incomprehensible. Physical Exam Physical Exam: GENERAL: alert, confused, NAD, on RA. Half naked. Appears ill/frail/weak HEENT: No pallor, no icterus. Pupils equal, round and reactive to light. Oral mucosa moist. NECK: No JVD, no neck masses. HEART: S1 and S2 heard. Regular rate and rhythm. No murmur, no gallop. RESPIRATORY SYSTEM: Normal AP diameter. No accessory muscle use. No wheezing, no crackles. ABDOMEN: Soft, bowel sounds present, no facial grimmacing, no distention. Rt flank bruise, doesn't appear tender. CENTRAL NERVOUS SYSTEM: No facial droop. Speech is clear. Obeys simple commands. Moves extremities. EXTREMITIES: No edema, no erythema seen. Results & Data Results & Data ([facility]) Vital Signs (Past 12 Hours) Vital Signs Temp Pulse Resp BP BP Pulse Ox O2 Del Method 09/13/22 16:10 37 C 71 18 126/62 93 Room Air 09/13/22 09:30 Nasal Cannula 09/13/22 09:05 36.7 C 79 18 111/64 92 Room Air O2 Flow Rate 09/13/22 16:10 2 09/13/22 09:30 2 09/13/22 09:05 2 (1) Falls Encounter type: initial encounter Qualified Code(s): W19.XXXA - Unspecified fall, initial encounter
[2022-09-13] MEDS: OLANZapine 10 MG/2.1 ML SDV IM PRN (19:42)
[2022-09-13] MEDS: traZODone HCL 50 MG TAB PO SCH (19:45)
[2022-09-13] MEDS: ATORVASTATIN 40 MG TAB PO SCH (19:45)
[2022-09-14] MEDS: ACETAMINOPHEN 500 MG TAB PO SCH ×3 (04:53→20:36)
[2022-09-14] MEDS: HEPARIN SOD 5,000 UNIT/0.5 ML VIAL SQ SCH ×2 (06:45→14:00)
[2022-09-14] MEDS: ASPIRIN 81 MG ECTAB PO SCH (08:30)
[2022-09-14] MEDS: amLODIPine BESYLATE 5 MG TAB PO SCH (08:30)
[2022-09-14] MEDS: CETIRIZINE HCL 10 MG TABLET PO SCH (08:31)
[2022-09-14] MEDS: ATENOLOL 25 MG TABLET PO SCH (08:31)
[2022-09-14] MEDS: FUROSEMIDE 20 MG TAB PO SCH (08:32)
[2022-09-14] MEDS: MEMANTINE HCL 10 MG TAB PO SCH ×2 (08:33→20:37)
[2022-09-14] MEDS: CEROVITE ADV FORMULA TAB PO SCH (08:34)
[2022-09-14] MEDS: QUEtiapine FUMARATE 25 MG TABLET PO SCH ×3 (08:35→20:38)
[2022-09-14] MEDS: UMECLIDINIUM/VILANTEROL 62.5/25MCG 7 PUFFS/INHALER INH SCH (08:35)
[2022-09-14] MEDS: PANTOprazole 40 MG TAB PO SCH ×2 (08:45→20:37)
[2022-09-14] MEDS: GALANTAMINE HYDROBROMIDE 8 MG CAPER PO SCH (08:45)
[2022-09-14] MEDS: LIDOCAINE 5% 1 PATCH TD SCH (08:45)
--- NOTE | 2022-09-14 17:19 | Hospitalist Progress Note ---
Date of Service September 14, 2022 Assessment & Plan (1) Agitation due to dementia: (2) Dementia with behavioral disturbance: (3) CAD (coronary artery disease): (4) Carotid stenosis: (5) COPD (chronic obstructive pulmonary disease): (6) Sleep apnea: (7) HTN (hypertension): (8) GERD (gastroesophageal reflux disease): (9) Barretts esophagus: Plan: This is an 87yo M with a PMH of dementia with behavioral disturbance, HTN, dyslipidemia, CAD s/p stent, COPD, sleep apnea on 2L oxygen HS, GERD, Steward's esophagus, carotid stenosis who presented 09/11 with worsening agitation and hallucinations. 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 Appreciate case management weighing in on placement options Patient's was at bedside during admission who stated that patient has been getting weaker, decreasing appetite and has been falling since last several months. Patient had fell 6 times in the last 6 months, last 1 was 2 weeks ago CHECKMAN. Neurology increased Seroquel from 25 milligrams twice daily to 50 twice daily 1 month ago CHECKMAN. Also on memantine, galantamine Admitting Work up - Vitals and lab work essentially unremarkable, CT head without acute intracranial abnormality, chest x-ray without acute abnormality. Presence of numerous nodular densities with radiology recommending CT chest. Admitting blood culture pending admitting UA negative for UTI. Psychiatry consulted for help optimizing medical regimen for severe dementia,, appreciate recommendation. Fall, aspiration precautions COPD JUAN Continue Anoro Ellipta inhaler, 2L supplemental O2 HS Recent fall with R flank pain Pain contributing to agitation? Trial of lidocaine, scheduled tylenol CAD (coronary artery disease) S/P Stent EKG with bifascicular block - unchanged from previous Continue ASA, statin, atenolol HTN (hypertension) Continue amlodipine, lasix, atenolol Dyslipidemia Continue statin DVT Ppx: SQ heparin Code status: FULL PCP: [facility] in [place] (Dr. Clarke) Dispo: Admit to med/surg , PT/OT, can dc to placement. Pending off of IM zyprexa. (10) Falls: Admission and Anticipated Discharge Date Admission Date: September 11, 2022 Subjective Patient seen and examined at bedside as a follow-up of agitation due to dementia and dementia with behavioral disturbances. Patient was lying in bed, confused, needed as needed Zyprexa overnight for agitation. ROS n/a due to confusion. Incomprehensible. Physical Exam Physical Exam: GENERAL: alert, confused, NAD, on RA. Appears ill/frail/weak HEENT: No pallor, no icterus. Pupils equal, round and reactive to light. Oral mucosa moist. NECK: No JVD, no neck masses. HEART: S1 and S2 heard. Regular rate and rhythm. No murmur, no gallop. RESPIRATORY SYSTEM: Normal AP diameter. No accessory muscle use. No wheezing, no crackles. ABDOMEN: Soft, bowel sounds present, no facial grimmacing, no distention. Rt flank bruise, doesn't appear tender. CENTRAL NERVOUS SYSTEM: No facial droop. Speech is clear. Obeys simple commands. Moves extremities. EXTREMITIES: No edema, no erythema seen. Results & Data Results & Data ([facility]) Vital Signs (Past 12 Hours) Vital Signs Temp Pulse Resp BP Pulse Ox O2 Del Method O2 Flow Rate 09/14/22 14:54 36.3 C L 76 18 122/63 95 Nasal Cannula 2 09/14/22 07:15 Nasal Cannula 2 09/14/22 08:29 36.8 C 72 16 146/69 H 97 2 (1) Falls Encounter type: initial encounter Qualified Code(s): W19.XXXA - Unspecified fall, initial encounter
[2022-09-14] MEDS: ATORVASTATIN 40 MG TAB PO SCH (20:37)
[2022-09-15] MEDS: HEPARIN SOD 5,000 UNIT/0.5 ML VIAL SQ SCH ×4 (02:56→20:12)
[2022-09-15] MEDS: ACETAMINOPHEN 500 MG TAB PO SCH ×3 (05:05→21:05)
[2022-09-15 07:35] LABS: Hematocrit (blood only) 39.4 % (40.1-51.0); Hemoglobin 13.2 g/dl (14.0-18.0); Mean Corpuscular Hemoglobin 33.2 pg (25.0-34.0); Mean Corpuscular Hgb Conc 33.5 g/dL (32.0-36.0); Mean Corpuscular Volume 99.2 fL (80.0-100.0); Mean Platelet Volume 9.4 fL (9.4-12.4); Platelet Count 322 K/uL (130-400); RDW Coefficient of Variation 13.6 % (11.5-14.5); RDW Standard Deviation 50.3 fL (36.4-46.3); Red Blood Count 3.97 M/uL (4.63-6.08); White Blood Count 8.36 K/ul (4.8-10.8)
[2022-09-15] MEDS: amLODIPine BESYLATE 5 MG TAB PO SCH (10:45)
[2022-09-15] MEDS: FUROSEMIDE 20 MG TAB PO SCH (10:46)
[2022-09-15] MEDS: CETIRIZINE HCL 10 MG TABLET PO SCH (10:46)
[2022-09-15] MEDS: ATENOLOL 25 MG TABLET PO SCH (10:46)
[2022-09-15] MEDS: ASPIRIN 81 MG ECTAB PO SCH (10:47)
[2022-09-15] MEDS: QUEtiapine FUMARATE 25 MG TABLET PO SCH ×3 (10:47→20:13)
[2022-09-15] MEDS: MEMANTINE HCL 10 MG TAB PO SCH ×2 (10:48→20:11)
[2022-09-15] MEDS: PANTOprazole 40 MG TAB PO SCH ×2 (10:48→20:12)
[2022-09-15] MEDS: CEROVITE ADV FORMULA TAB PO SCH (10:49)
[2022-09-15] MEDS: GALANTAMINE HYDROBROMIDE 8 MG CAPER PO SCH (10:56)
[2022-09-15] MEDS: LIDOCAINE 5% 1 PATCH TD SCH (10:56)
[2022-09-15] MEDS: UMECLIDINIUM/VILANTEROL 62.5/25MCG 7 PUFFS/INHALER INH SCH (10:57)
--- NOTE | 2022-09-15 11:14 | Psychiatric Progress Note ---
Date of Service September 15, 2022 Impression / Recommendations Impression 87 yo male with hx of dementia, increased agitation upon admission despite Seroquel 50 mg BID due to combination of progressive cognitive change, sundowning, and hypoxia. 09/15/22: did not require prn overnight (1) Dementia with behavioral disturbance: Plan midday dose of Seroquel was shifted to 4 pm as typically agitated around 6 pm. hs dose increased to 75 mg last pm. Interval History Identifying Information 87 yo male from [place], dx dementia 4 years ago, admit medically as increasingly agitated/hypoxic/unable to be maintained at home. initial consult completed 09/12/22 Chief Complaint intermittent agitation Review of Systems Notes patient unable to complete due to dementia Subjective Subjective Patient was seen & assessed and interval progress reviewed. Continues to , less agitation overnight. sleeping this am. Physical Exam Psychiatric responds to name, otherwise not oriented, significant aphasia due to dementia. tired but calm. Vital Signs (Past 24 Hours) Last Vital Signs Temp 36.3 C L 09/15/22 07:16 Pulse 58 L 09/15/22 07:16 Resp 16 09/15/22 07:16 BP 142/55 H 09/15/22 07:16 Pulse Ox 92 09/15/22 07:16 O2 Del Method 09/15/22 07:16 O2 Flow Rate 2 09/14/22 22:13 Results & Data ([facility]) Laboratory Results Laboratory Results - last 24 hr 09/15/22 06:40 WBC 8.36 RBC 3.97 L Hgb 13.2 L Hct 39.4 L MCV 99.2 MCH 33.2 MCHC 33.5 RDW Std Deviation 50.3 H RDW Coeff of Kristina 13.6 Plt Count 322 MPV 9.4 Current Inpatient Medications Current Inpatient Medications: Current Inpatient Medications Acetaminophen (Acetaminophen 500 Mg Tab) 1,000 mg PO Q8H SADA Stop: 10/11/22 19:59 Last Admin: 09/15/22 05:05 Dose: Not Given Amlodipine Besylate (Amlodipine Besylate 5 Mg Tab) 5 mg PO DAILY SADA Stop: 10/12/22 08:59 Last Admin: 09/15/22 10:45 Dose: 5 mg Aspirin (Aspirin 81 Mg Ectab) 81 mg PO DAILY SADA Stop: 10/12/22 08:59 Last Admin: 09/15/22 10:47 Dose: 81 mg Atenolol (Atenolol 25 Mg Tablet) 12.5 mg PO DAILY SADA Stop: 10/12/22 08:59 Last Admin: 09/15/22 10:46 Dose: Not Given Atorvastatin Calcium (Atorvastatin 40 Mg Tab) 80 mg PO HS SADA Stop: 10/11/22 20:59 Last Admin: 09/14/22 20:37 Dose: 80 mg Cetirizine HCl (Cetirizine Hcl 10 Mg Tablet) 10 mg PO DAILY SADA Stop: 10/12/22 08:59 Last Admin: 09/15/22 10:46 Dose: 10 mg Furosemide (Furosemide 20 Mg Tab) 20 mg PO DAILY SADA Stop: 10/12/22 08:59 Last Admin: 09/15/22 10:46 Dose: 20 mg Galantamine Hydrobromide (Galantamine Hydrobromide 8 Mg Caper) 24 mg PO DAILY SADA Stop: 10/12/22 08:59 Last Admin: 09/15/22 10:56 Dose: Not Given Heparin Sodium (Porcine) (Heparin Sod 5,000 Unit/0.5 Ml Vial) 5,000 units SQ Q8 SADA Stop: 10/11/22 21:59 Last Admin: 09/15/22 05:47 Dose: 5,000 units Lidocaine (Lidocaine 5% 1 Patch) 1 patch TD QAM SADA Stop: 10/11/22 17:29 Last Admin: 09/15/22 10:56 Dose: Not Given Memantine (Memantine Hcl 10 Mg Tab) 10 mg PO BID SADA Stop: 10/11/22 20:59 Last Admin: 09/15/22 10:48 Dose: 10 mg Miscellaneous (Remove Lidoderm Patch) 1 each N/A DAILY@2100 SADA Stop: 10/11/22 20:59 Last Admin: 09/14/22 20:38 Dose: 1 each Miscellaneous (*Maxitrol*Order Awaiting Action) 1 each N/A QS SADA Stop: 10/12/22 00:00 Last Admin: 09/15/22 10:49 Dose: Not Given Multivitamins/Minerals (Cerovite Adv Formula Tab) 1 tab PO DAILY SADA Stop: 10/12/22 08:59 Last Admin: 09/15/22 10:49 Dose: 1 tab Olanzapine (Olanzapine 10 Mg/2.1 Ml Sdv) 2.5 mg IM Q4H PRN PRN Reason: Anxiety/Agitation Stop: 10/11/22 23:14 Last Admin: 09/13/22 19:42 Dose: 2.5 mg Olanzapine (Olanzapine Zydis 5 Mg Orally Dis. Tab) 2.5 mg PO Q6 PRN PRN Reason: Anxiety/Agitation Stop: 10/14/22 11:59 Ondansetron HCl (Ondansetron Inj 2 Mg/Ml 2 Ml Vial) 4 mg IV Q6H PRN PRN Reason: Nausea Stop: 10/11/22 18:22 Pantoprazole Sodium (Pantoprazole 40 Mg Tab) 40 mg PO BID [facility]; Protocol Stop: 10/11/22 20:59 Last Admin: 09/15/22 10:48 Dose: 40 mg Polyethylene Glycol (Polyethylene (Miralax) 17 Gm Pack) 17 gm PO DAILY PRN PRN Reason: Constipation Stop: 10/11/22 18:22 Quetiapine Fumarate (Quetiapine Fumarate 25 Mg Tablet) 50 mg PO QAM [facility] Stop: 10/15/22 08:59 Last Admin: 09/15/22 10:47 Dose: 50 mg Quetiapine Fumarate (Quetiapine Fumarate 25 Mg Tablet) 50 mg PO QD@16 SADA Stop: 10/14/22 15:59 Last Admin: 09/14/22 16:36 Dose: 50 mg Quetiapine Fumarate (Quetiapine Fumarate 25 Mg Tablet) 75 mg PO HS [facility] Stop: 10/14/22 20:59 Last Admin: 09/14/22 20:38 Dose: 75 mg Umeclidinium/Vilanterol (Umeclidinium/Vilanterol 62.5/25mcg 7 Puffs/Inhaler) 1 puffs INH DAILY [facility] Stop: 10/12/22 08:59 Last Admin: 09/15/22 10:57 Dose: Not Given
--- NOTE | 2022-09-15 14:55 | Hospitalist Progress Note ---
Date of Service September 15, 2022 Assessment & Plan (1) Agitation due to dementia: (2) Dementia with behavioral disturbance: (3) CAD (coronary artery disease): (4) Carotid stenosis: (5) COPD (chronic obstructive pulmonary disease): (6) Sleep apnea: (7) HTN (hypertension): (8) GERD (gastroesophageal reflux disease): (9) Barretts esophagus: Plan: This is an 87yo M with a PMH of dementia with behavioral disturbance, HTN, dyslipidemia, CAD s/p stent, COPD, sleep apnea on 2L oxygen HS, GERD, Steward's esophagus, carotid stenosis who presented 09/11 with worsening agitation and hallucinations. He is being managed for the following: Agitation due to dementia Dementia with behavioral disturbance More aggressive behavior, hallucinations over the past few weeks [employer] in setting of severe dementia Significant other unsure if she can continue to care for patient at home. Appreciate case management weighing in on placement options Patient's was at bedside during admission who stated that patient has been getting weaker, decreasing appetite and has been falling since last several months. Patient had fell 6 times in the last 6 months, last 1 was 2 weeks ago [employer]. Neurology increased Seroquel from 25 milligrams twice daily to 50 twice daily 1 month ago [employer]. Also on memantine, galantamine Admitting Work up - Vitals and lab work essentially unremarkable, CT head without acute intracranial abnormality, chest x-ray without acute abnormality. Presence of numerous nodular densities with radiology recommending CT chest. Admitting blood culture pending admitting UA negative for UTI. Psychiatry consulted for help optimizing medical regimen for severe dementia, appreciate recommendation. Serouel being uptitrated. Fall, aspiration precautions COPD JUAN Continue Anoro Ellipta inhaler, 2L supplemental O2 HS Recent fall with R flank pain Pain contributing to agitation? Trial of lidocaine, scheduled tylenol CAD (coronary artery disease) S/P Stent EKG with bifascicular block - unchanged from previous Continue ASA, statin, atenolol HTN (hypertension) Continue amlodipine, lasix, atenolol Dyslipidemia Continue statin DVT Ppx: SQ heparin Code status: FULL PCP: [facility] in [place] (Dr. Clarke) Dispo: Admit to med/surg , PT/OT, can dc to placement. Pending off of IM zyprexa. (10) Falls: Admission and Anticipated Discharge Date Admission Date: September 11, 2022 Subjective Patient seen and examined at bedside as a follow-up of agitation due to dementia and dementia with behavioral disturbances. Patient was lying in bed, confused, didn't need prn Zyprexa overnight. ROS n/a due to confusion. Incomprehensible. Physical Exam Physical Exam: GENERAL: alert, confused, NAD, on RA. Appears ill/frail/weak HEENT: No pallor, no icterus. Pupils equal, round and reactive to light. Oral mucosa moist. NECK: No JVD, no neck masses. HEART: S1 and S2 heard. Regular rate and rhythm. No murmur, no gallop. RESPIRATORY SYSTEM: Normal AP diameter. No accessory muscle use. No wheezing, no crackles. ABDOMEN: Soft, bowel sounds present, no facial grimmacing, no distention. Rt flank bruise, doesn't appear tender. CENTRAL NERVOUS SYSTEM: No facial droop. Speech is clear. Obeys simple commands. Moves extremities. EXTREMITIES: No edema, no erythema seen. Results & Data Results & Data ([facility]) Vital Signs (Past 12 Hours) Vital Signs Temp Pulse Pulse Resp BP Pulse Ox O2 Del Method 09/15/22 14:47 37.1 C 78 12 124/53 L 92 Nasal Cannula 09/15/22 10:00 Room Air 09/15/22 07:16 36.3 C L 58 L 16 142/55 H 92 Room Air O2 Flow Rate 09/15/22 14:47 2 09/15/22 10:00 09/15/22 07:16 (1) Falls Encounter type: initial encounter Qualified Code(s): W19.XXXA - Unspecified fall, initial encounter
[2022-09-15] MEDS: ATORVASTATIN 40 MG TAB PO SCH (20:10)
[2022-09-15] MEDS ORDERED: HALOPERIDOL LACTATE 5 MG/ML 1 ML VIAL IM STA (22:32)
[2022-09-16] MEDS: ACETAMINOPHEN 500 MG TAB PO SCH ×3 (05:37→20:01)
[2022-09-16] MEDS: HEPARIN SOD 5,000 UNIT/0.5 ML VIAL SQ SCH ×3 (06:30→20:21)
[2022-09-16 09:05] LABS: BUN Creatinine Ratio 25.7 (10-20); Calcium 9.9 mg/dl (8.5-10.1); Creatinine Clr Calc Pharmacy 41.5 ml/min; Est GFR (African American) 77.2 ml/min; Est GFR (Non-African American) 66.6 ml/min; Magnesium 2.2 mg/dl (1.7-2.4); Phosphorus 3.2 mg/dl (2.5-4.9); Potassium 4.9 mmol/L (3.5-5.1)
[2022-09-16] MEDS: ATENOLOL 25 MG TABLET PO SCH (09:33)
[2022-09-16] MEDS: ASPIRIN 81 MG ECTAB PO SCH (09:33)
[2022-09-16] MEDS: amLODIPine BESYLATE 5 MG TAB PO SCH (09:33)
[2022-09-16] MEDS: CEROVITE ADV FORMULA TAB PO SCH (09:33)
[2022-09-16] MEDS: FUROSEMIDE 20 MG TAB PO SCH (09:33)
[2022-09-16] MEDS: CETIRIZINE HCL 10 MG TABLET PO SCH (09:33)
[2022-09-16] MEDS: QUEtiapine FUMARATE 25 MG TABLET PO SCH ×2 (09:33→15:47)
[2022-09-16] MEDS: GALANTAMINE HYDROBROMIDE 8 MG CAPER PO SCH (09:33)
[2022-09-16] MEDS: MEMANTINE HCL 10 MG TAB PO SCH ×2 (09:34→20:03)
[2022-09-16] MEDS: PANTOprazole 40 MG TAB PO SCH ×2 (09:34→20:21)
[2022-09-16] MEDS: UMECLIDINIUM/VILANTEROL 62.5/25MCG 7 PUFFS/INHALER INH SCH (09:36)
[2022-09-16] MEDS: LIDOCAINE 5% 1 PATCH TD SCH (09:46)
--- NOTE | 2022-09-16 12:01 | Communication Note ---
Date of Service: September 16, 2022 patient agitated last pm and hit nurse after no documented void for 12 hrs. Communication difficulties/confusion due to dementia complicate hands on care. Did not receive Zyprexa. Will increase hs Seroquel so total daily dose 200 mg and consider cross taper to Zyprexa. So far we have been completing outpatient trial and some days had seem improved with interval increases but clearly ongoing breakthrough that will impact placement/comfort of patient.
--- NOTE | 2022-09-16 13:47 | Hospitalist Progress Note ---
Date of Service September 16, 2022 Assessment & Plan (1) Agitation due to dementia: (2) Dementia with behavioral disturbance: (3) CAD (coronary artery disease): (4) Carotid stenosis: (5) COPD (chronic obstructive pulmonary disease): (6) Sleep apnea: (7) HTN (hypertension): (8) GERD (gastroesophageal reflux disease): (9) Barretts esophagus: Plan: This is an 87yo M with a PMH of dementia with behavioral disturbance, HTN, dyslipidemia, CAD s/p stent, COPD, sleep apnea on 2L oxygen HS, GERD, Steward's esophagus, carotid stenosis who presented 09/11 with worsening agitation and hallucinations. 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 Appreciate case management weighing in on placement options Patient's was at bedside during admission who stated that patient has been getting weaker, decreasing appetite and has been falling since last several months. Patient had fell 6 times in the last 6 months, last 1 was 2 weeks ago [employer]. Neurology increased Seroquel from 25 milligrams twice daily to 50 twice daily 1 month ago [employer]. Also on memantine, galantamine Admitting Work up - Vitals and lab work essentially unremarkable, CT head without acute intracranial abnormality, chest x-ray without acute abnormality. Presence of numerous nodular densities with radiology recommending CT chest. Admitting blood culture pending admitting UA negative for UTI. Psychiatry consulted for help optimizing medical regimen for severe dementia, appreciate recommendation. Serouel being uptitrated to 200 mg. Fall, aspiration precautions COPD JUAN Continue Anoro Ellipta inhaler, 2L supplemental O2 HS Recent fall with R flank pain Pain contributing to agitation? Trial of lidocaine, scheduled tylenol CAD (coronary artery disease) S/P Stent EKG with bifascicular block - unchanged from previous Continue ASA, statin, atenolol HTN (hypertension) Continue amlodipine, lasix, atenolol Dyslipidemia Continue statin DVT Ppx: SQ heparin Code status: FULL PCP: [facility] [place] [facility] in [place] (Dr. Clarke) Dispo: Admit to med/surg , PT/OT, [facility]. (10) Falls: Admission and Anticipated Discharge Date Admission Date: September 11, 2022 Subjective Patient agitated overnight; required IM Haldol. He also developed urinary retention requiring [facility] catheterization. Review of Systems Review of Systems: Unobtainable due to cognitive status Physical Exam Physical Exam: GENERAL: Lethargic, confused; does not respond to any questions. HEENT: No pallor, no icterus. Pupils equal, round and reactive to light. Oral mucosa moist. NECK: No JVD, no neck masses. HEART: S1 and S2 heard. Regular rate and rhythm. No murmur, no gallop. RESPIRATORY SYSTEM: Normal AP diameter. No accessory muscle use. No wheezing, no crackles. ABDOMEN: Soft, bowel sounds present, no facial grimmacing, no distention. Rt flank bruise, doesn't appear tender. CENTRAL NERVOUS SYSTEM: Grossly moves all extremities. EXTREMITIES: No edema, no erythema seen. Results & Data Results & Data ([facility]) Vital Signs (Past 12 Hours) Vital Signs Temp Pulse Resp BP Pulse Ox O2 Del Method O2 Flow Rate 09/16/22 11:15 Nasal Cannula 2 09/16/22 08:50 36.7 C 110 H 16 139/68 85 L Room Air Laboratory Results Laboratory Results WBC 8.36 K/ul (4.8-10.8) 09/15/22 06:40 RBC 3.97 M/uL (4.63-6.08) L 09/15/22 06:40 Hgb 13.2 g/dl (14.0-18.0) L 09/15/22 06:40 Hct 39.4 % (40.1-51.0) L 09/15/22 06:40 MCV 99.2 fL (80.0-100.0) 09/15/22 06:40 MCH 33.2 pg (25.0-34.0) 09/15/22 06:40 MCHC 33.5 g/dL (32.0-36.0) 09/15/22 06:40 RDW Std Deviation 50.3 fL (36.4-46.3) H 09/15/22 06:40 RDW Coeff of Kristina 13.6 % (11.5-14.5) 09/15/22 06:40 Plt Count 322 K/uL (130-400) 09/15/22 06:40 MPV 9.4 fL (9.4-12.4) 09/15/22 06:40 Immature Gran % (Auto) 0.1 % 09/11/22 14:13 Neut % (Auto) 63.3 % 09/11/22 14:13 Lymph % (Auto) 23.0 % 09/11/22 14:13 [place] % (Auto) 9.6 % 09/11/22 14:13 Eos % (Auto) 2.8 % 09/11/22 14:13 Baso % (Auto) 1.2 % 09/11/22 14:13 Neut # (Auto) 5.45 K/uL (1.4-6.5) 09/11/22 14:13 Lymph # (Auto) 1.98 K/uL (1.2-3.4) 09/11/22 14:13 [place] # (Auto) 0.83 K/uL (0.24-0.82) H 09/11/22 14:13 Eos # (Auto) 0.24 K/uL (0-0.50) 09/11/22 14:13 Baso # (Auto) 0.10 K/uL (0-0.2) 09/11/22 14:13 Immature Gran # (Auto) 0.01 K/uL (0.00-0.02) 09/11/22 14:13 Sodium 144 mmol/L (136-145) 09/16/22 08:13 Potassium 4.9 mmol/L (3.5-5.1) 09/16/22 08:13 Chloride 105 mmol/L (98-107) 09/16/22 08:13 Carbon Dioxide 30 mmol/L (21-32) 09/16/22 08:13 Anion Gap 9 (3-11) 09/16/22 08:13 BUN 26 mg/dl (6-23) H 09/16/22 08:13 Creatinine 1.01 mg/dl (0.6-1.4) 09/16/22 08:13 Est Cr Clr Drug Dosing 41.5 ml/min 09/16/22 08:13 Est GFR ( Amer) 77.2 ml/min 09/16/22 08:13 Est GFR (Non-Af Amer) 66.6 ml/min 09/16/22 08:13 BUN/Creatinine Ratio 25.7 (10-20) H 09/16/22 08:13 Glucose 106 mg/dl (70-99(Fasting)) H 09/16/22 08:13 Calcium 9.9 mg/dl (8.5-10.1) 09/16/22 08:13 Phosphorus 3.2 mg/dl (2.5-4.9) 09/16/22 08:13 Magnesium 2.2 mg/dl (1.7-2.4) 09/16/22 08:13 Total Bilirubin 0.6 mg/dl (0.2-1.0) 09/11/22 14:13 AST 23 U/L (13-39) 09/11/22 14:13 ALT 20 U/L (7-52) 09/11/22 14:13 Alkaline Phosphatase 146 U/L (34-104) H 09/11/22 14:13 Troponin I High Sens 8.8 pg/ml (0-20) 09/11/22 14:13 Total Protein 8.1 gm/dl (6.0-8.3) 09/11/22 14:13 Albumin 3.6 gm/dl (3.4-5.0) 09/11/22 14:13 Globulin 4.5 gm/dl (2.5-4.0) H 09/11/22 14:13 Albumin/Globulin Ratio 0.8 (0.9-2) L 09/11/22 14:13 TSH 1.480 uIu/ml (0.300-4.500) 09/11/22 14:13 Urine Color Yellow 09/11/22 16:15 Urine Appearance Clear (Clear) 09/11/22 16:15 Urine pH 6.0 (4.5-7.5) 09/11/22 16:15 Ur Specific [place] 1.016 (1.000-1.030) 09/11/22 16:15 Urine Protein Negative (Negative) 09/11/22 16:15 Urine Glucose (UA) Negative (Negative) 09/11/22 16:15 Urine Ketones Negative (Negative) 09/11/22 16:15 Urine Blood Negative (Negative) 09/11/22 16:15 Urine Nitrite Negative (Negative) 09/11/22 16:15 Urine Bilirubin Negative (Negative) 09/11/22 16:15 Urine Urobilinogen Negative (Negative) 09/11/22 16:15 Ur Leukocyte Esterase Negative (Negative) 09/11/22 16:15 SARS-CoV-2, RNA, NAAT NEGATIVE (NEGATIVE) 09/11/22 14:45 Impressions Chest X-Ray 09/11/22 14:03 XR chest 1V portable CLINICAL HISTORY: weakness TECHNIQUE: Single frontal radiograph of the chest was obtained. Comparison: Comparison is made to chest radiograph 01/20/2019 FINDINGS: No lines and tubes are seen. Calcified aortic knob is seen. There is nodular densities are seen bilaterally in the lungs, appearance is similar to prior exam. Interstitial thickening is noted. Atelectasis is noted in the right lung base. No evidence of pleural effusion or pneumothorax. IMPRESSION: 1. No acute abnormalities are seen. 2. Numerous nodular densities are seen bilaterally. Comparison with outside imaging, if available, is recommended, otherwise nonemergent CT chest can be performed for further evaluation. ACT 112: Negative or not required by law. Electronically signed by: Jerel Jimenez M.D. 09/11/2022 2:[address] 09/11/22 14:03 CT head/brain wo con CLINICAL HISTORY: increasing confusion Technique: Contiguous axial CT images of the head were acquired from the base of the skull to the vertex without intravenous contrast administration. Images were viewed in brain, subdural and bone windows. Automated dose lowering techniques and/or adjustment according to patient size were utilized for this exam. Comparison: Comparison is made to CT head 01/20/2019 Findings: Areas of decreased attenuation are present in the periventricular and subcortical white matter bilaterally consistent with small vessel ischemic disease. Generalized cerebral atrophy with commensurate enlargement of the ventricles, sulci, and cisterns is also present. There is no acute intracranial hemorrhage or evidence of acute territorial infarction. No shift of the midline structures, mass effect, or extra-axial abnormalities are shown. Atherosclerotic calcifications are present in the intracranial segments of the internal carotid arteries. Left parietal encephalomalacia is identified. Imaged portions of the paranasal sinuses and mastoid air cells are clear. The orbits appear normal. There are no acute fractures of the calvaria or scalp swelling. Impression: No acute intracranial hemorrhage, no evidence of acute territorial infarction or other acute intracranial disease process. ACT 112: Negative or not required by law. Electronically signed by: Jerel Jimenez M.D. 09/11/2022 2:38 PM (1) Falls Encounter type: initial encounter Qualified Code(s): W19.XXXA - Unspecified fall, initial encounter
[2022-09-16] MEDS: ATORVASTATIN 40 MG TAB PO SCH (20:03)
[2022-09-16] MEDS ORDERED: QUEtiapine FUMARATE 100 MG TABLET PO SCH (21:00)
[2022-09-17] MEDS: ACETAMINOPHEN 500 MG TAB PO SCH ×4 (04:20→20:13)
[2022-09-17] MEDS: HEPARIN SOD 5,000 UNIT/0.5 ML VIAL SQ SCH ×3 (07:31→23:14)
[2022-09-17 08:35] LABS: Basophils # (auto) 0.08 K/uL (0-0.2); Basophils % (auto) 0.9 %; Eosinophils # (auto) 0.32 K/uL (0-0.50); Eosinophils % (auto) 3.5 %; Hematocrit (blood only) 43.2 % (40.1-51.0); Hemoglobin 14.3 g/dl (14.0-18.0); Immature Granulocytes # (auto) 0.02 K/uL (0.00-0.02); Immature Granulocytes % (auto) 0.2 %; Lymphocytes % (auto) 16.6 %; Mean Corpuscular Hemoglobin 32.5 pg (25.0-34.0); Mean Corpuscular Hgb Conc 33.1 g/dL (32.0-36.0); Mean Corpuscular Volume 98.2 fL (80.0-100.0); Mean Platelet Volume 9.2 fL (9.4-12.4); Monocytes # (auto) 0.87 K/uL (0.24-0.82); Monocytes % (auto) 9.6 %; Neutrophils # (auto) 6.27 K/uL (1.4-6.5); Neutrophils % (auto) 69.2 %; Platelet Count 298 K/uL (130-400); RDW Coefficient of Variation 13.6 % (11.5-14.5); RDW Standard Deviation 49.5 fL (36.4-46.3); White Blood Count 9.06 K/ul (4.8-10.8)
[2022-09-17 08:57] LABS: BUN Creatinine Ratio 28.6 (10-20); Calcium 9.1 mg/dl (8.5-10.1); Creatinine Clr Calc Pharmacy 37.4 ml/min; Est GFR (African American) 68.1 ml/min; Est GFR (Non-African American) 58.7 ml/min; Potassium 3.9 mmol/L (3.5-5.1)
[2022-09-17] MEDS: QUEtiapine FUMARATE 25 MG TABLET PO SCH ×2 (09:03→20:12)
[2022-09-17] MEDS: PANTOprazole 40 MG TAB PO SCH ×2 (09:03→20:13)
[2022-09-17] MEDS: ASPIRIN 81 MG ECTAB PO SCH (09:04)
[2022-09-17] MEDS: FUROSEMIDE 20 MG TAB PO SCH (09:04)
[2022-09-17] MEDS: CETIRIZINE HCL 10 MG TABLET PO SCH (09:05)
[2022-09-17] MEDS: ATENOLOL 25 MG TABLET PO SCH (09:05)
[2022-09-17] MEDS: CEROVITE ADV FORMULA TAB PO SCH (09:06)
[2022-09-17] MEDS: MEMANTINE HCL 10 MG TAB PO SCH ×2 (09:06→20:12)
[2022-09-17] MEDS: GALANTAMINE HYDROBROMIDE 8 MG CAPER PO SCH (09:08)
[2022-09-17] MEDS: LIDOCAINE 5% 1 PATCH TD SCH (09:45)
[2022-09-17] MEDS: amLODIPine BESYLATE 5 MG TAB PO SCH (09:45)
[2022-09-17] MEDS: UMECLIDINIUM/VILANTEROL 62.5/25MCG 7 PUFFS/INHALER INH SCH (09:45)
--- NOTE | 2022-09-17 13:18 | Psychiatric Progress Note ---
Date of Service September 17, 2022 Impression / Recommendations Impression 87 yo male with hx of dementia, increased agitation upon admission despite Seroquel 50 mg BID due to combination of progressive cognitive change, sundowning, and hypoxia. (1) Dementia with behavioral disturbance: Plan 09/17/22: less breakthrough on current TID dosing of Seroquel, monitor for excessive sedation/change in swallow. Interval History Identifying Information 87 yo male from [place], dx dementia 4 years ago, admit medically as increasingly agitated/hypoxic/unable to be maintained at home. initial consult completed 09/12/22 Chief Complaint intermittent agitation (improving) Subjective Subjective Patient was seen & assessed and interval progress reviewed. hasn't required prn Zyprexa IM since 09/13, has a PO equivalent ordered. Physical Exam Psychiatric patient unable to participate much due to aphasia, tired, no worsening of baselined cogwheeling, etc. Vital Signs (Past 24 Hours) Last Vital Signs Temp 36.9 C 09/17/22 07:23 Pulse 71 09/17/22 07:23 Resp 18 09/17/22 07:23 BP 165/66 H 09/17/22 07:23 Pulse Ox 98 09/17/22 07:23 O2 Del Method 09/17/22 07:45 O2 Flow Rate 3 09/17/22 07:45 Results & Data ([facility]) Laboratory Results Laboratory Results - last 24 hr 09/17/22 09/17/22 08:01 08:01 WBC 9.06 RBC 4.40 L Hgb 14.3 Hct 43.2 MCV 98.2 MCH 32.5 MCHC 33.1 RDW Std Deviation 49.5 H RDW Coeff of Kristina 13.6 Plt Count 298 MPV 9.2 L Immature Gran % (Auto) 0.2 Neut % (Auto) 69.2 Lymph % (Auto) 16.6 [place] % (Auto) 9.6 Eos % (Auto) 3.5 Baso % (Auto) 0.9 Neut # (Auto) 6.27 Lymph # (Auto) 1.50 [place] # (Auto) 0.87 H Eos # (Auto) 0.32 Baso # (Auto) 0.08 Immature Gran # (Auto) 0.02 Sodium 143 Potassium 3.9 D Chloride 105 Carbon Dioxide 32 Anion Gap 6 BUN 32 H Creatinine 1.12 Est Cr Clr Drug Dosing 37.4 Est GFR ( Amer) 68.1 Est GFR (Non-Af Amer) 58.7 BUN/Creatinine Ratio 28.6 H Glucose 93 Calcium 9.1 Current Inpatient Medications Current Inpatient Medications: Current Inpatient Medications Acetaminophen (Acetaminophen 500 Mg Tab) 1,000 mg PO Q8H SADA Stop: 10/11/22 19:59 Last Admin: 09/17/22 04:29 Dose: Not Given Amlodipine Besylate (Amlodipine Besylate 5 Mg Tab) 5 mg PO DAILY SADA Stop: 10/12/22 08:59 Last Admin: 09/17/22 09:45 Dose: 5 mg Aspirin (Aspirin 81 Mg Ectab) 81 mg PO DAILY SADA Stop: 10/12/22 08:59 Last Admin: 09/17/22 09:04 Dose: 81 mg Atenolol (Atenolol 25 Mg Tablet) 12.5 mg PO DAILY SADA Stop: 10/12/22 08:59 Last Admin: 09/17/22 09:05 Dose: 12.5 mg Atorvastatin Calcium (Atorvastatin 40 Mg Tab) 80 mg PO HS SADA Stop: 10/11/22 20:59 Last Admin: 09/16/22 20:03 Dose: 80 mg Cetirizine HCl (Cetirizine Hcl 10 Mg Tablet) 10 mg PO DAILY SADA Stop: 10/12/22 08:59 Last Admin: 09/17/22 09:05 Dose: 10 mg Furosemide (Furosemide 20 Mg Tab) 20 mg PO DAILY SADA Stop: 10/12/22 08:59 Last Admin: 09/17/22 09:04 Dose: 20 mg Galantamine Hydrobromide (Galantamine Hydrobromide 8 Mg Caper) 24 mg PO DAILY SADA Stop: 10/12/22 08:59 Last Admin: 09/17/22 09:08 Dose: 24 mg Heparin Sodium (Porcine) (Heparin Sod 5,000 Unit/0.5 Ml Vial) 5,000 units SQ Q8 SADA Stop: 10/11/22 21:59 Last Admin: 09/17/22 07:31 Dose: 5,000 units Lidocaine (Lidocaine 5% 1 Patch) 1 patch TD QAM SADA Stop: 10/11/22 17:29 Last Admin: 09/17/22 09:45 Dose: Not Given Memantine (Memantine Hcl 10 Mg Tab) 10 mg PO BID SADA Stop: 10/11/22 20:59 Last Admin: 09/17/22 09:06 Dose: 10 mg Miscellaneous (Remove Lidoderm Patch) 1 each N/A DAILY@2100 [facility] Stop: 10/11/22 20:59 Last Admin: 09/16/22 19:58 Dose: 1 each Multivitamins/Minerals (Cerovite Adv Formula Tab) 1 tab PO DAILY SADA Stop: 10/12/22 08:59 Last Admin: 09/17/22 09:06 Dose: 1 tab Olanzapine (Olanzapine 10 Mg/2.1 Ml Sdv) 2.5 mg IM Q4H PRN PRN Reason: Anxiety/Agitation Stop: 10/11/22 23:14 Last Admin: 09/13/22 19:42 Dose: 2.5 mg Olanzapine (Olanzapine Zydis 5 Mg Orally Dis. Tab) 2.5 mg PO Q6 PRN PRN Reason: Anxiety/Agitation Stop: 10/14/22 11:59 Ondansetron HCl (Ondansetron Inj 2 Mg/Ml 2 Ml Vial) 4 mg IV Q6H PRN PRN Reason: Nausea Stop: 10/11/22 18:22 Pantoprazole Sodium (Pantoprazole 40 Mg Tab) 40 mg PO BID SADA; Protocol Stop: 10/11/22 20:59 Last Admin: 09/17/22 09:03 Dose: 40 mg Polyethylene Glycol (Polyethylene (Miralax) 17 Gm Pack) 17 gm PO DAILY PRN PRN Reason: Constipation Stop: 10/11/22 18:22 Quetiapine Fumarate (Quetiapine Fumarate 25 Mg Tablet) 50 mg PO QAM SADA Stop: 10/15/22 08:59 Last Admin: 09/17/22 09:03 Dose: 50 mg Quetiapine Fumarate (Quetiapine Fumarate 25 Mg Tablet) 50 mg PO QD@16 SADA Stop: 10/14/22 15:59 Last Admin: 09/16/22 15:47 Dose: 50 mg Quetiapine Fumarate (Quetiapine Fumarate 100 Mg Tablet) 100 mg PO HS SADA Stop: 10/16/22 20:59 Last Admin: 09/16/22 20:03 Dose: 100 mg Umeclidinium/Vilanterol (Umeclidinium/Vilanterol 62.5/25mcg 7 Puffs/Inhaler) 1 puffs INH DAILY SADA Stop: 10/12/22 08:59 Last Admin: 09/17/22 09:45 Dose: Not Given
--- NOTE | 2022-09-17 14:36 | Hospitalist Progress Note ---
Date of Service September 17, 2022 Assessment & Plan (1) Agitation due to dementia: (2) Dementia with behavioral disturbance: (3) CAD (coronary artery disease): (4) Carotid stenosis: (5) COPD (chronic obstructive pulmonary disease): (6) Sleep apnea: (7) HTN (hypertension): (8) GERD (gastroesophageal reflux disease): (9) Barretts esophagus: Plan: This is an 87yo M with a PMH of dementia with behavioral disturbance, HTN, dyslipidemia, CAD s/p stent, COPD, sleep apnea on 2L oxygen HS, GERD, Steward's esophagus, carotid stenosis who presented 09/11 with worsening agitation and hallucinations. He is being managed for the following: Agitation due to dementia Dementia with behavioral disturbance More aggressive behavior, hallucinations over the past few weeks RN L AND D in setting of severe dementia Patient's was at bedside during admission who stated that patient has been getting weaker, decreasing appetite and has been falling since last several months. Patient had fell 6 times in the last 6 months, last 1 was 2 weeks ago RN L AND D. Neurology increased Seroquel from 25 milligrams twice daily to 50 twice daily 1 month ago RN L AND D. Also on memantine, galantamine Admitting Work up - Vitals and lab work essentially unremarkable, CT head without acute intracranial abnormality, chest x-ray without acute abnormality. Presence of numerous nodular densities with radiology recommending CT chest. Plan; Currently on Seroquel; dose adjusted by psychiatry. Has not required im Zyprexa. Patient has been more lethargic in the past 2 days. -PT OT ordered for placement -Aspiration precautions. Swallow evaluation ordered. Acute urinary retention status post [facility] on 09/15 Maintain [facility] until patient's mentation improves; will do trial of void after m entation is improved. COPD JUAN Continue Anoro Ellipta inhaler, 2L supplemental O2 HS Recent fall with R flank pain Pain contributing to agitation? Trial of lidocaine, scheduled tylenol CAD (coronary artery disease) S/P Stent EKG with bifascicular block - unchanged from previous Continue ASA, statin, atenolol HTN (hypertension) Continue amlodipine, lasix, atenolol Dyslipidemia Continue statin DVT Ppx: SQ heparin Code status: DNR/DNI; discussed with significant other( also his POA) at bedside on 09/16 and 09/17. PCP: [facility] in [place] (Dr. Clarke) Dispo: Admit to med/surg , PT/OT ordered for placement. (10) Falls: Admission and Anticipated Discharge Date Admission Date: September 11, 2022 Subjective Patient seen and examined at bedside in morning and in afternoon. His significant other was present at bedside during the afternoon. Patient is lethargic; awakens to tactile stimuli but unable to answer any questions. Review of Systems Review of Systems: Unobtainable due to cognitive status Physical Exam Physical Exam: GENERAL: Lethargic, confused; does not respond to any questions. HEENT: No pallor, no icterus. Pupils equal, round and reactive to light. Oral mucosa moist. NECK: No JVD, no neck masses. HEART: S1 and S2 heard. Regular rate and rhythm. No murmur, no gallop. RESPIRATORY SYSTEM: Normal AP diameter. No accessory muscle use. No wheezing, no crackles. ABDOMEN: Soft, bowel sounds present, no facial grimmacing, no distention. Rt flank bruise, doesn't appear tender. CENTRAL NERVOUS SYSTEM: Grossly moves all extremities. EXTREMITIES: No edema, no erythema seen. Results & Data Results & Data ([facility]) Vital Signs (Past 12 Hours) Vital Signs Temp Pulse Resp BP Pulse Ox O2 Del Method O2 Flow Rate 09/17/22 07:45 Nasal Cannula 3 09/17/22 07:23 36.9 C 71 18 165/66 H 98 Room Air Laboratory Results Laboratory Results WBC 9.06 K/ul (4.8-10.8) 09/17/22 08:01 RBC 4.40 M/uL (4.63-6.08) L 09/17/22 08:01 Hgb 14.3 g/dl (14.0-18.0) 09/17/22 08:01 Hct 43.2 % (40.1-51.0) 09/17/22 08:01 MCV 98.2 fL (80.0-100.0) 09/17/22 08:01 MCH 32.5 pg (25.0-34.0) 09/17/22 08:01 MCHC 33.1 g/dL (32.0-36.0) 09/17/22 08:01 RDW Std Deviation 49.5 fL (36.4-46.3) H 09/17/22 08:01 RDW Coeff of Kristina 13.6 % (11.5-14.5) 09/17/22 08:01 Plt Count 298 K/uL (130-400) 09/17/22 08:01 MPV 9.2 fL (9.4-12.4) L 09/17/22 08:01 Immature Gran % (Auto) 0.2 % 09/17/22 08:01 Neut % (Auto) 69.2 % 09/17/22 08:01 Lymph % (Auto) 16.6 % 09/17/22 08:01 [place] % (Auto) 9.6 % 09/17/22 08:01 Eos % (Auto) 3.5 % 09/17/22 08:01 Baso % (Auto) 0.9 % 09/17/22 08:01 Neut # (Auto) 6.27 K/uL (1.4-6.5) 09/17/22 08:01 Lymph # (Auto) 1.50 K/uL (1.2-3.4) 09/17/22 08:01 [place] # (Auto) 0.87 K/uL (0.24-0.82) H 09/17/22 08:01 Eos # (Auto) 0.32 K/uL (0-0.50) 09/17/22 08:01 Baso # (Auto) 0.08 K/uL (0-0.2) 09/17/22 08:01 Immature Gran # (Auto) 0.02 K/uL (0.00-0.02) 09/17/22 08:01 Sodium 143 mmol/L (136-145) 09/17/22 08:01 Potassium 3.9 mmol/L (3.5-5.1) D 09/17/22 08:01 Chloride 105 mmol/L (98-107) 09/17/22 08:01 Carbon Dioxide 32 mmol/L (21-32) 09/17/22 08:01 Anion Gap 6 (3-11) 09/17/22 08:01 BUN 32 mg/dl (6-23) H 09/17/22 08:01 Creatinine 1.12 mg/dl (0.6-1.4) 09/17/22 08:01 Est Cr Clr Drug Dosing 37.4 ml/min 09/17/22 08:01 Est GFR ( Amer) 68.1 ml/min 09/17/22 08:01 Est GFR (Non-Af Amer) 58.7 ml/min 09/17/22 08:01 BUN/Creatinine Ratio 28.6 (10-20) H 09/17/22 08:01 Glucose 93 mg/dl (70-99(Fasting)) 09/17/22 08:01 Calcium 9.1 mg/dl (8.5-10.1) 09/17/22 08:01 Phosphorus 3.2 mg/dl (2.5-4.9) 09/16/22 08:13 Magnesium 2.2 mg/dl (1.7-2.4) 09/16/22 08:13 Total Bilirubin 0.6 mg/dl (0.2-1.0) 09/11/22 14:13 AST 23 U/L (13-39) 09/11/22 14:13 ALT 20 U/L (7-52) 09/11/22 14:13 Alkaline Phosphatase 146 U/L (34-104) H 09/11/22 14:13 Troponin I High Sens 8.8 pg/ml (0-20) 09/11/22 14:13 Total Protein 8.1 gm/dl (6.0-8.3) 09/11/22 14:13 Albumin 3.6 gm/dl (3.4-5.0) 09/11/22 14:13 Globulin 4.5 gm/dl (2.5-4.0) H 09/11/22 14:13 Albumin/Globulin Ratio 0.8 (0.9-2) L 09/11/22 14:13 TSH 1.480 uIu/ml (0.300-4.500) 09/11/22 14:13 Urine Color Yellow 09/11/22 16:15 Urine Appearance Clear (Clear) 09/11/22 16:15 Urine pH 6.0 (4.5-7.5) 09/11/22 16:15 Ur Specific [place] 1.016 (1.000-1.030) 09/11/22 16:15 Urine Protein Negative (Negative) 09/11/22 16:15 Urine Glucose (UA) Negative (Negative) 09/11/22 16:15 Urine Ketones Negative (Negative) 09/11/22 16:15 Urine Blood Negative (Negative) 09/11/22 16:15 Urine Nitrite Negative (Negative) 09/11/22 16:15 Urine Bilirubin Negative (Negative) 09/11/22 16:15 Urine Urobilinogen Negative (Negative) 09/11/22 16:15 Ur Leukocyte Esterase Negative (Negative) 09/11/22 16:15 SARS-CoV-2, RNA, NAAT NEGATIVE (NEGATIVE) 09/11/22 14:45 Impressions Chest X-Ray 09/11/22 14:03 XR chest 1V portable CLINICAL HISTORY: weakness TECHNIQUE: Single frontal radiograph of the chest was obtained. Comparison: Comparison is made to chest radiograph 01/20/2019 FINDINGS: No lines and tubes are seen. Calcified aortic knob is seen. There is nodular densities are seen bilaterally in the lungs, appearance is similar to prior exam. Interstitial thickening is noted. Atelectasis is noted in the right lung base. No evidence of pleural effusion or pneumothorax. IMPRESSION: 1. No acute abnormalities are seen. 2. Numerous nodular densities are seen bilaterally. Comparison with outside imaging, if available, is recommended, otherwise nonemergent CT chest can be performed for further evaluation. ACT 112: Negative or not required by law. Electronically signed by: Jerel Jimenez M.D. 09/11/2022 2:[address] 09/11/22 14:03 CT head/brain wo con CLINICAL HISTORY: increasing confusion Technique: Contiguous axial CT images of the head were acquired from the base of the skull to the vertex without intravenous contrast administration. Images were viewed in brain, subdural and bone windows. Automated dose lowering techniques and/or adjustment according to patient size were utilized for this exam. Comparison: Comparison is made to CT head 01/20/2019 Findings: Areas of decreased attenuation are present in the periventricular and subcortical white matter bilaterally consistent with small vessel ischemic disease. Generalized cerebral atrophy with commensurate enlargement of the ventricles, sulci, and cisterns is also present. There is no acute intracranial hemorrhage or evidence of acute territorial infarction. No shift of the midline structures, mass effect, or extra-axial abnormalities are shown. Atherosclerotic calcifications are present in the intracranial segments of the internal carotid arteries. Left parietal encephalomalacia is identified. Imaged portions of the paranasal sinuses and mastoid air cells are clear. The orbits appear normal. There are no acute fractures of the calvaria or scalp swelling. Impression: No acute intracranial hemorrhage, no evidence of acute territorial infarction or other acute intracranial disease process. ACT 112: Negative or not required by law. Electronically signed by: Jerel Jimenez M.D. 09/11/2022 2:38 PM (1) Falls Encounter type: initial encounter Qualified Code(s): W19.XXXA - Unspecified fall, initial encounter
[2022-09-17] MEDS: ATORVASTATIN 40 MG TAB PO SCH (20:11)
[2022-09-18] MEDS: ACETAMINOPHEN 500 MG TAB PO SCH ×3 (04:26→21:17)
[2022-09-18] MEDS: HEPARIN SOD 5,000 UNIT/0.5 ML VIAL SQ SCH ×3 (06:40→21:15)
[2022-09-18 07:41] LABS: Basophils # (auto) 0.08 K/uL (0-0.2); Basophils % (auto) 0.8 %; Eosinophils # (auto) 0.17 K/uL (0-0.50); Eosinophils % (auto) 1.6 %; Hematocrit (blood only) 43.2 % (40.1-51.0); Hemoglobin 14.5 g/dl (14.0-18.0); Immature Granulocytes # (auto) 0.03 K/uL (0.00-0.02); Immature Granulocytes % (auto) 0.3 %; Lymphocytes # (auto) 1.79 K/uL (1.2-3.4); Lymphocytes % (auto) 17.2 %; Mean Corpuscular Hemoglobin 32.9 pg (25.0-34.0); Mean Corpuscular Hgb Conc 33.6 g/dL (32.0-36.0); Mean Platelet Volume 9.5 fL (9.4-12.4); Monocytes # (auto) 0.82 K/uL (0.24-0.82); Monocytes % (auto) 7.9 %; Neutrophils # (auto) 7.54 K/uL (1.4-6.5); Neutrophils % (auto) 72.2 %; Platelet Count 303 K/uL (130-400); RDW Coefficient of Variation 13.6 % (11.5-14.5); RDW Standard Deviation 49.2 fL (36.4-46.3); Red Blood Count 4.41 M/uL (4.63-6.08); White Blood Count 10.43 K/ul (4.8-10.8)
[2022-09-18 08:10] LABS: BUN Creatinine Ratio 32.2 (10-20); Calcium 9.6 mg/dl (8.5-10.1); Creatinine Clr Calc Pharmacy 36.4 ml/min; Est GFR (African American) 65.9 ml/min; Est GFR (Non-African American) 56.9 ml/min
[2022-09-18] MEDS: amLODIPine BESYLATE 5 MG TAB PO SCH (08:53)
[2022-09-18] MEDS: MEMANTINE HCL 10 MG TAB PO SCH ×2 (08:54→21:16)
[2022-09-18] MEDS: FUROSEMIDE 20 MG TAB PO SCH (08:54)
[2022-09-18] MEDS: CEROVITE ADV FORMULA TAB PO SCH (08:55)
[2022-09-18] MEDS: ATENOLOL 25 MG TABLET PO SCH (08:55)
[2022-09-18] MEDS: ASPIRIN 81 MG ECTAB PO SCH (08:56)
[2022-09-18] MEDS: CETIRIZINE HCL 10 MG TABLET PO SCH (08:56)
[2022-09-18] MEDS: GALANTAMINE HYDROBROMIDE 8 MG CAPER PO SCH (08:57)
[2022-09-18] MEDS: PANTOprazole 40 MG TAB PO SCH ×2 (08:57→21:16)
[2022-09-18] MEDS: QUEtiapine FUMARATE 25 MG TABLET PO SCH ×3 (08:58→21:15)
[2022-09-18] MEDS: UMECLIDINIUM/VILANTEROL 62.5/25MCG 7 PUFFS/INHALER INH SCH (08:58)
[2022-09-18] MEDS: LIDOCAINE 5% 1 PATCH TD SCH (08:58)
--- NOTE | 2022-09-18 11:11 | Hospitalist Progress Note ---
Date of Service September 18, 2022 Assessment & Plan (1) Agitation due to dementia: (2) Dementia with behavioral disturbance: (3) CAD (coronary artery disease): (4) Carotid stenosis: (5) COPD (chronic obstructive pulmonary disease): (6) Sleep apnea: (7) HTN (hypertension): (8) GERD (gastroesophageal reflux disease): (9) Barretts esophagus: Plan: This is an 87yo M with a PMH of dementia with behavioral disturbance, HTN, dyslipidemia, CAD s/p stent, COPD, sleep apnea on 2L oxygen HS, GERD, Steward's esophagus, carotid stenosis who presented 09/11 with worsening agitation and hallucinations. He is being managed for the following: Agitation due to dementia Dementia with behavioral disturbance More aggressive behavior, hallucinations over the past few weeks [employer] in setting of severe dementia Patient's was at bedside during admission who stated that patient has been getting weaker, decreasing appetite and has been falling since last several months. Patient had fell 6 times in the last 6 months, last 1 was 2 weeks ago [employer]. Neurology increased Seroquel from 25 milligrams twice daily to 50 twice daily 1 month ago [employer]. Also on memantine, galantamine Admitting Work up - Vitals and lab work essentially unremarkable, CT head without acute intracranial abnormality, chest x-ray without acute abnormality. Presence of numerous nodular densities with radiology recommending CT chest. Plan; Currently on Seroquel 50 mg 3 times daily; to be hold off if patient is lethargic. -PT OT ordered for placement -Aspiration precautions. Swallow evaluation ordered. Acute urinary retention status post [facility] on 09/15 Maintain [facility] until patient's mentation improves; will do trial of void after mentation is improved. COPD JUAN Continue Anoro Ellipta inhaler, 2L supplemental O2 HS Recent fall with R flank pain Pain contributing to agitation? Trial of lidocaine, scheduled tylenol CAD (coronary artery disease) S/P Stent EKG with bifascicular block - unchanged from previous Continue ASA, statin, atenolol HTN (hypertension) Continue amlodipine, lasix, atenolol Dyslipidemia Continue statin DVT Ppx: SQ heparin Code status: DNR/DNI; discussed with significant other( also his POA) at bedside on 09/16 and 09/17. PCP: [facility] in [place] (Dr. Clarke) Dispo: Admit to med/surg , PT/OT ordered for placement. (10) Falls: Admission and Anticipated Discharge Date Admission Date: September 11, 2022 Subjective Patient seen and examined at bedside. He is more awake today; not in any distress. Review of Systems Review of Systems: Unobtainable due to cognitive status Physical Exam Physical Exam: GENERAL: Awake; not in distress. HEENT: No pallor, no icterus. Pupils equal, round and reactive to light. Oral mucosa moist. NECK: No JVD, no neck masses. HEART: S1 and S2 heard. Regular rate and rhythm. No murmur, no gallop. RESPIRATORY SYSTEM: Normal AP diameter. No accessory muscle use. No wheezing, no crackles. ABDOMEN: Soft, bowel sounds present, no facial grimmacing, no distention. Rt flank bruise, doesn't appear tender. CENTRAL NERVOUS SYSTEM: Grossly moves all extremities. EXTREMITIES: No edema, no erythema seen. Results & Data Results & Data ([facility]) Vital Signs (Past 12 Hours) Vital Signs Temp Pulse Resp BP Pulse Ox O2 Del Method 09/18/22 08:16 37.2 C 74 18 138/44 L 94 Room Air Laboratory Results Laboratory Results WBC 10.43 K/ul (4.8-10.8) 09/18/22 07:26 RBC 4.41 M/uL (4.63-6.08) L 09/18/22 07:26 Hgb 14.5 g/dl (14.0-18.0) 09/18/22 07:26 Hct 43.2 % (40.1-51.0) 09/18/22 07:26 MCV 98.0 fL (80.0-100.0) 09/18/22 07:26 MCH 32.9 pg (25.0-34.0) 09/18/22 07:26 MCHC 33.6 g/dL (32.0-36.0) 09/18/22 07:26 RDW Std Deviation 49.2 fL (36.4-46.3) H 09/18/22 07:26 RDW Coeff of Kristina 13.6 % (11.5-14.5) 09/18/22 07:26 Plt Count 303 K/uL (130-400) 09/18/22 07:26 MPV 9.5 fL (9.4-12.4) 09/18/22 07: Immature Gran % (Auto) 0.3 % 09/18/22 07: Neut % (Auto) 72.2 % 09/18/22 07: Lymph % (Auto) 17.2 % 09/18/22 07: [place] % (Auto) 7.9 % 09/18/22 07: Eos % (Auto) 1.6 % 09/18/22 07: Baso % (Auto) 0.8 % 09/18/22 07: Neut # (Auto) 7.54 K/uL (1.4-6.5) H 09/18/22 07: Lymph # (Auto) 1.79 K/uL (1.2-3.4) 09/18/22 07: Jay # (Auto) 0.82 K/uL (0.24-0.82) 09/18/22 07: Eos # (Auto) 0.17 K/uL (0-0.50) 09/18/22 07: Baso # (Auto) 0.08 K/uL (0-0.2) 09/18/22 07:26 Immature Gran # (Auto) 0.03 K/uL (0.00-0.02) H 09/18/22 07:26 Sodium 144 mmol/L (136-145) 09/18/22 07:26 Potassium 4.0 mmol/L (3.5-5.1) 09/18/22 07:26 Chloride 105 mmol/L (98-107) 09/18/22 07:26 Carbon Dioxide 28 mmol/L (21-32) 09/18/22 07:26 Anion Gap 11 (3-11) 09/18/22 07:26 BUN 37 mg/dl (6-23) H 09/18/22 07:26 Creatinine 1.15 mg/dl (0.6-1.4) 09/18/22 07:26 Est Cr Clr Drug Dosing 36.4 ml/min 09/18/22 07:26 Est GFR ( Amer) 65.9 ml/min 09/18/22 07:26 Est GFR (Non-Af Amer) 56.9 ml/min 09/18/22 07:26 BUN/Creatinine Ratio 32.2 (10-20) H 09/18/22 07:26 Glucose 92 mg/dl (70-99(Fasting)) 09/18/22 07:26 Calcium 9.6 mg/dl (8.5-10.1) 09/18/22 07:26 Phosphorus 3.2 mg/dl (2.5-4.9) 09/16/22 08:13 Magnesium 2.2 mg/dl (1.7-2.4) 09/16/22 08:13 Total Bilirubin 0.6 mg/dl (0.2-1.0) 09/11/22 14:13 AST 23 U/L (13-39) 09/11/22 14:13 ALT 20 U/L (7-52) 09/11/22 14:13 Alkaline Phosphatase 146 U/L (34-104) H 09/11/22 14:13 Troponin I High Sens 8.8 pg/ml (0-20) 09/11/22 14:13 Total Protein 8.1 gm/dl (6.0-8.3) 09/11/22 14:13 Albumin 3.6 gm/dl (3.4-5.0) 09/11/22 14:13 Globulin 4.5 gm/dl (2.5-4.0) H 09/11/22 14:13 Albumin/Globulin Ratio 0.8 (0.9-2) L 09/11/22 14:13 TSH 1.480 uIu/ml (0.300-4.500) 09/11/22 14:13 Urine Color Yellow 09/11/22 16:15 Urine Appearance Clear (Clear) 09/11/22 16:15 Urine pH 6.0 (4.5-7.5) 09/11/22 16:15 Ur Specific [place] 1.016 (1.000-1.030) 09/11/22 16:15 Urine Protein Negative (Negative) 09/11/22 16:15 Urine Glucose (UA) Negative (Negative) 09/11/22 16:15 Urine Ketones Negative (Negative) 09/11/22 16:15 Urine Blood Negative (Negative) 09/11/22 16:15 Urine Nitrite Negative (Negative) 09/11/22 16:15 Urine Bilirubin Negative (Negative) 09/11/22 16:15 Urine Urobilinogen Negative (Negative) 09/11/22 16:15 Ur Leukocyte Esterase Negative (Negative) 09/11/22 16:15 SARS-CoV-2, RNA, NAAT NEGATIVE (NEGATIVE) 09/11/22 14:45 Impressions Chest X-Ray 09/11/22 14:03 XR chest 1V portable CLINICAL HISTORY: weakness TECHNIQUE: Single frontal radiograph of the chest was obtained. Comparison: Comparison is made to chest radiograph 01/20/2019 FINDINGS: No lines and tubes are seen. Calcified aortic knob is seen. There is nodular densities are seen bilaterally in the lungs, appearance is similar to prior exam. Interstitial thickening is noted. Atelectasis is noted in the right lung base. No evidence of pleural effusion or pneumothorax. IMPRESSION: 1. No acute abnormalities are seen. 2. Numerous nodular densities are seen bilaterally. Comparison with outside imaging, if available, is recommended, otherwise nonemergent CT chest can be performed for further evaluation. ACT 112: Negative or not required by law. Electronically signed by: Jerel Jimenez M.D. 09/11/2022 2:[address] 09/11/22 14:03 CT head/brain wo con CLINICAL HISTORY: increasing confusion Technique: Contiguous axial CT images of the head were acquired from the base of the skull to the vertex without intravenous contrast administration. Images were viewed in brain, subdural and bone windows. Automated dose lowering techniques and/or adjustment according to patient size were utilized for this exam. Comparison: Comparison is made to CT head 01/20/2019 Findings: Areas of decreased attenuation are present in the periventricular and subcortical white matter bilaterally consistent with small vessel ischemic disease. Generalized cerebral atrophy with commensurate enlargement of the ventricles, sulci, and cisterns is also present. There is no acute intracranial hemorrhage or evidence of acute territorial infarction. No shift of the midline structures, mass effect, or extra-axial abnormalities are shown. Atherosclerotic calcifications are present in the intracranial segments of the internal carotid arteries. Left parietal encephalomalacia is identified. Imaged portions of the paranasal sinuses and mastoid air cells are clear. The orbits appear normal. There are no acute fractures of the calvaria or scalp swelling. Impression: No acute intracranial hemorrhage, no evidence of acute territorial infarction or other acute intracranial disease process. ACT 112: Negative or not required by law. Electronically signed by: Jerel Jimenez M.D. 09/11/2022 2:38 PM (1) Falls Encounter type: initial encounter Qualified Code(s): W19.XXXA - Unspecified fall, initial encounter
[2022-09-18] MEDS: ATORVASTATIN 40 MG TAB PO SCH (21:16)
[2022-09-18] MEDS: OLANZapine ZYDIS 5 MG ORALLY DIS. TAB PO PRN (21:18)
[2022-09-19] MEDS: ACETAMINOPHEN 500 MG TAB PO SCH ×3 (04:06→21:41)
[2022-09-19] MEDS: HEPARIN SOD 5,000 UNIT/0.5 ML VIAL SQ SCH ×3 (05:42→21:41)
[2022-09-19] MEDS: GALANTAMINE HYDROBROMIDE 8 MG CAPER PO SCH (08:05)
[2022-09-19] MEDS: ATENOLOL 25 MG TABLET PO SCH (08:05)
[2022-09-19] MEDS: CETIRIZINE HCL 10 MG TABLET PO SCH (08:06)
[2022-09-19] MEDS: UMECLIDINIUM/VILANTEROL 62.5/25MCG 7 PUFFS/INHALER INH SCH (08:06)
[2022-09-19] MEDS: PANTOprazole 40 MG TAB PO SCH ×2 (08:06→21:41)
[2022-09-19] MEDS: CEROVITE ADV FORMULA TAB PO SCH (08:06)
[2022-09-19] MEDS: FUROSEMIDE 20 MG TAB PO SCH (08:06)
[2022-09-19] MEDS: MEMANTINE HCL 10 MG TAB PO SCH ×2 (08:06→21:41)
[2022-09-19] MEDS: amLODIPine BESYLATE 5 MG TAB PO SCH (08:06)
[2022-09-19] MEDS: QUEtiapine FUMARATE 25 MG TABLET PO SCH ×2 (08:06→13:58)
[2022-09-19] MEDS: LIDOCAINE 5% 1 PATCH TD SCH (08:07)
[2022-09-19] MEDS: ASPIRIN 81 MG ECTAB PO SCH (09:11)
--- NOTE | 2022-09-19 14:37 | Hospitalist Progress Note ---
Date of Service September 19, 2022 Assessment & Plan (1) Agitation due to dementia: (2) Dementia with behavioral disturbance: (3) CAD (coronary artery disease): (4) Carotid stenosis: (5) COPD (chronic obstructive pulmonary disease): (6) Sleep apnea: (7) HTN (hypertension): (8) GERD (gastroesophageal reflux disease): (9) Barretts esophagus: Plan: This is an 87yo M with a PMH of dementia with behavioral disturbance, HTN, dyslipidemia, CAD s/p stent, COPD, sleep apnea on 2L oxygen HS, GERD, Steward's esophagus, carotid stenosis who presented 09/11 with worsening agitation and hallucinations. 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 Patient had fell 6 times in the last 6 months, last 1 was 2 weeks ago UTILITY OPERATOR. Neurology increased Seroquel from 25 milligrams twice daily to 50 twice daily 1 month ago UTILITY OPERATOR. Also on memantine, galantamine Admitting Work up - Vitals and lab work essentially unremarkable, CT head without acute intracranial abnormality, chest x-ray without acute abnormality. Presence of numerous nodular densities with radiology recommending CT chest. Plan; Currently on Seroquel 50 mg 3 times daily; to be hold off if patient is lethargic. Also on as needed Zyprexa. Psychiatry on board. -PT OT ordered for placement -Aspiration precautions. Acute urinary retention status post [facility] on 09/15 Maintain [facility] until patient's mentation improves; will do trial of void after mentation is improved. COPD JUAN Continue Anoro Ellipta inhaler, 2L supplemental O2 HS Recent fall with R flank pain Pain contributing to agitation? Trial of lidocaine, scheduled tylenol CAD (coronary artery disease) S/P Stent EKG with bifascicular block - unchanged from previous Continue ASA, statin, atenolol HTN (hypertension) Continue amlodipine, lasix, atenolol Dyslipidemia Continue statin DVT Ppx: SQ heparin Code status: DNR/DNI; discussed with significant other( also his POA) at bedside on 09/16 and 09/17. PCP: [facility] in [place] (Dr. Clarke) Dispo: Admit to med/surg , PT/OT ordered for placement. (10) Falls: Admission and Anticipated Discharge Date Admission Date: September 11, 2022 Subjective Patient seen and examined at bedside. Overnight, patient became agitated and required 1 dose of olanzapine oral. Otherwise, is comfortable; not in distress. Review of Systems Review of Systems: All systems reviewed & are unremarkable except as noted in Subjective Physical Exam Physical Exam: GENERAL: Awake; not in distress. HEENT: No pallor, no icterus. Pupils equal, round and reactive to light. Oral mucosa moist. NECK: No JVD, no neck masses. HEART: S1 and S2 heard. Regular rate and rhythm. No murmur, no gallop. RESPIRATORY SYSTEM: Normal AP diameter. No accessory muscle use. No wheezing, no crackles. ABDOMEN: Soft, bowel sounds present, no facial grimmacing, no distention. Rt flank bruise, doesn't appear tender. CENTRAL NERVOUS SYSTEM: Grossly moves all extremities. EXTREMITIES: No edema, no erythema seen. Results & Data Results & Data ([facility]) Vital Signs (Past 12 Hours) Vital Signs Temp Pulse Resp BP Pulse Ox O2 Del Method O2 Flow Rate 09/19/22 07:58 Nasal Cannula 3 09/19/22 07:41 36.6 C 84 16 128/71 94 Nasal Cannula 3 Laboratory Results Laboratory Results WBC 10.43 K/ul (4.8-10.8) 09/18/22 07:26 RBC 4.41 M/uL (4.63-6.08) L 09/18/22 07:26 Hgb 14.5 g/dl (14.0-18.0) 09/18/22 07:26 Hct 43.2 % (40.1-51.0) 09/18/22 07:26 MCV 98.0 fL (80.0-100.0) 09/18/22 07:26 MCH 32.9 pg (25.0-34.0) 09/18/22 07:26 MCHC 33.6 g/dL (32.0-36.0) 09/18/22 07:26 RDW Std Deviation 49.2 fL (36.4-46.3) H 09/18/22 07:26 RDW Coeff of Kristina 13.6 % (11.5-14.5) 09/18/22 07:26 Plt Count 303 K/uL (130-400) 09/18/22 07:26 MPV 9.5 fL (9.4-12.4) 09/18/22 07:26 Immature Gran % (Auto) 0.3 % 09/18/22 07: Neut % (Auto) 72.2 % 09/18/22 07: Lymph % (Auto) 17.2 % 09/18/22 07: [place] % (Auto) 7.9 % 09/18/22 07:26 Eos % (Auto) 1.6 % 09/18/22 07:26 Baso % (Auto) 0.8 % 09/18/22 07: Neut # (Auto) 7.54 K/uL (1.4-6.5) H 09/18/22 07:26 Lymph # (Auto) 1.79 K/uL (1.2-3.4) 09/18/22 07:26 [place] # (Auto) 0.82 K/uL (0.24-0.82) 09/18/22 07: Eos # (Auto) 0.17 K/uL (0-0.50) 09/18/22 07:26 Baso # (Auto) 0.08 K/uL (0-0.2) 09/18/22 07: Immature Gran # (Auto) 0.03 K/uL (0.00-0.02) H 09/18/22 07:26 Sodium 144 mmol/L (136-145) 09/18/22 07:26 Potassium 4.0 mmol/L (3.5-5.1) 09/18/22 07:26 Chloride 105 mmol/L (98-107) 09/18/22 07:26 Carbon Dioxide 28 mmol/L (21-32) 09/18/22 07:26 Anion Gap 11 (3-11) 09/18/22 07:26 BUN 37 mg/dl (6-23) H 09/18/22 07:26 Creatinine 1.15 mg/dl (0.6-1.4) 09/18/22 07:26 Est Cr Clr Drug Dosing 36.4 ml/min 09/18/22 07:26 Est GFR ( Amer) 65.9 ml/min 09/18/22 07:26 Est GFR (Non-Af Amer) 56.9 ml/min 09/18/22 07:26 BUN/Creatinine Ratio 32.2 (10-20) H 09/18/22 07:26 Glucose 92 mg/dl (70-99(Fasting)) 09/18/22 07:26 Calcium 9.6 mg/dl (8.5-10.1) 09/18/22 07:26 Phosphorus 3.2 mg/dl (2.5-4.9) 09/16/22 08:13 Magnesium 2.2 mg/dl (1.7-2.4) 09/16/22 08:13 Total Bilirubin 0.6 mg/dl (0.2-1.0) 09/11/22 14:13 AST 23 U/L (13-39) 09/11/22 14:13 ALT 20 U/L (7-52) 09/11/22 14:13 Alkaline Phosphatase 146 U/L (34-104) H 09/11/22 14:13 Troponin I High Sens 8.8 pg/ml (0-20) 09/11/22 14:13 Total Protein 8.1 gm/dl (6.0-8.3) 09/11/22 14:13 Albumin 3.6 gm/dl (3.4-5.0) 09/11/22 14:13 Globulin 4.5 gm/dl (2.5-4.0) H 09/11/22 14:13 Albumin/Globulin Ratio 0.8 (0.9-2) L 09/11/22 14:13 TSH 1.480 uIu/ml (0.300-4.500) 09/11/22 14:13 Urine Color Yellow 09/11/22 16:15 Urine Appearance Clear (Clear) 09/11/22 16:15 Urine pH 6.0 (4.5-7.5) 09/11/22 16:15 Ur Specific [place] 1.016 (1.000-1.030) 09/11/22 16:15 Urine Protein Negative (Negative) 09/11/22 16:15 Urine Glucose (UA) Negative (Negative) 09/11/22 16:15 Urine Ketones Negative (Negative) 09/11/22 16:15 Urine Blood Negative (Negative) 09/11/22 16:15 Urine Nitrite Negative (Negative) 09/11/22 16:15 Urine Bilirubin Negative (Negative) 09/11/22 16:15 Urine Urobilinogen Negative (Negative) 09/11/22 16:15 Ur Leukocyte Esterase Negative (Negative) 09/11/22 16:15 SARS-CoV-2, RNA, NAAT NEGATIVE (NEGATIVE) 09/11/22 14:45 Impressions Chest X-Ray 09/11/22 14:03 XR chest 1V portable CLINICAL HISTORY: weakness TECHNIQUE: Single frontal radiograph of the chest was obtained. Comparison: Comparison is made to chest radiograph 01/20/2019 FINDINGS: No lines and tubes are seen. Calcified aortic knob is seen. There is nodular densities are seen bilaterally in the lungs, appearance is similar to prior exam. Interstitial thickening is noted. Atelectasis is noted in the right lung base. No evidence of pleural effusion or pneumothorax. IMPRESSION: 1. No acute abnormalities are seen. 2. Numerous nodular densities are seen bilaterally. Comparison with outside imaging, if available, is recommended, otherwise nonemergent CT chest can be performed for further evaluation. ACT 112: Negative or not required by law. Electronically signed by: Jerel Jimenez M.D. 09/11/2022 2:[address] 09/11/22 14:03 CT head/brain wo con CLINICAL HISTORY: increasing confusion Technique: Contiguous axial CT images of the head were acquired from the base of the skull to the vertex without intravenous contrast administration. Images were viewed in brain, subdural and bone windows. Automated dose lowering techniques and/or adjustment according to patient size were utilized for this exam. Comparison: Comparison is made to CT head 01/20/2019 Findings: Areas of decreased attenuation are present in the periventricular and subcortical white matter bilaterally consistent with small vessel ischemic disease. Generalized cerebral atrophy with commensurate enlargement of the ventricles, sulci, and cisterns is also present. There is no acute intracranial hemorrhage or evidence of acute territorial infarction. No shift of the midline structures, mass effect, or extra-axial abnormalities are shown. Atherosclerotic calcifications are present in the intracranial segments of the internal carotid arteries. Left parietal encephalomalacia is identified. Imaged portions of the paranasal sinuses and mastoid air cells are clear. The orbits appear normal. There are no acute fractures of the calvaria or scalp swelling. Impression: No acute intracranial hemorrhage, no evidence of acute territorial infarction or other acute intracranial disease process. ACT 112: Negative or not required by law. Electronically signed by: Jerel Jimenez M.D. 09/11/2022 2:38 PM (1) Falls Encounter type: initial encounter Qualified Code(s): W19.XXXA - Unspecified fall, initial encounter
--- NOTE | 2022-09-19 14:57 | Psychiatric Progress Note ---
Date of Service September 19, 2022 Impression / Recommendations Impression 87 yo male with hx of dementia, increased agitation upon admission despite Seroquel 50 mg BID due to suspected combination of progressive cognitive change, sundowning, and hypoxia. Diagnostically could be Lewy Body dementia given periods of waxing waning in terms of skills/cognition from day to day and consistent visual hallucinations. Likely also delirium component which could be contributing to alteration in level of alertness. Given this possibility continue to be cautious with antipsychotics given likelihood of increased sensitivity. Continue cross-taper from seroquel to zyprexa. Reviewed with his partner. Black box warning for all cause mortality but risk/benefit profile favors treatment given ongoing agitation preventing safe disposition. (1) Dementia with behavioral disturbance: Plan 09/19/22: Ongoing agitation with seroquel. Discontinue and start zyprexa 2.5mg qhs with additional 2.5mg po daily prn. Interval History Identifying Information 87 yo male from [place], dx dementia 4 years ago, admit medically as increasingly agitated/hypoxic/unable to be maintained at home. initial consult completed 09/12/22 Chief Complaint mute Subjective Subjective Patient was seen & assessed and interval progress reviewed. Paul is asleep mid-day. Discussion is with his partner of 20+ years who is at bedside. She notes he experiences frequent visual bonner and that up until day of admission to hospital he had still been able to go grocery shopping with her and at times was independent with some ADLs but some days would forget how to do things like using his belt or getting dressed requiring her assistance. She's not used to seeing him sedated like this. Reviewed challenges of balancing control of agitation and preventing excessive sedation. She states he was diagnosed with Alzheimer's dementia, no one had ever mentioned possibility of Lewy Body dementia. Physical Exam Psychiatric Apperance: + disheveled; + inappropriately dressed Eye Contact: + poor eye contact Speech: + mute Vital Signs (Past 24 Hours) Last Vital Signs Temp 36.6 C 09/19/22 07:41 Pulse 84 09/19/22 07:41 Resp 16 09/19/22 07:41 BP 128/71 09/19/22 07:41 Pulse Ox 94 09/19/22 07:41 O2 Del Method 09/19/22 07:58 O2 Flow Rate 3 09/19/22 07:58 Results & Data ([facility]) Current Inpatient Medications Current Inpatient Medications: Current Inpatient Medications Acetaminophen (Acetaminophen 500 Mg Tab) 1,000 mg PO Q8H SADA Stop: 10/11/22 19:59 Last Admin: 09/19/22 11:45 Dose: Not Given Amlodipine Besylate (Amlodipine Besylate 5 Mg Tab) 5 mg PO DAILY SADA Stop: 10/12/22 08:59 Last Admin: 09/19/22 08:06 Dose: 5 mg Aspirin (Aspirin 81 Mg Ectab) 81 mg PO DAILY SADA Stop: 10/12/22 08:59 Last Admin: 09/19/22 09:11 Dose: 81 mg Atenolol (Atenolol 25 Mg Tablet) 12.5 mg PO DAILY SADA Stop: 10/12/22 08:59 Last Admin: 09/19/22 08:05 Dose: 12.5 mg Atorvastatin Calcium (Atorvastatin 40 Mg Tab) 80 mg PO HS SADA Stop: 10/11/22 20:59 Last Admin: 09/18/22 21:16 Dose: 80 mg Cetirizine HCl (Cetirizine Hcl 10 Mg Tablet) 10 mg PO DAILY SADA Stop: 10/12/22 08:59 Last Admin: 09/19/22 08:06 Dose: 10 mg Furosemide (Furosemide 20 Mg Tab) 20 mg PO DAILY SADA Stop: 10/12/22 08:59 Last Admin: 09/19/22 08:06 Dose: 20 mg Galantamine Hydrobromide (Galantamine Hydrobromide 8 Mg Caper) 24 mg PO DAILY SADA Stop: 10/12/22 08:59 Last Admin: 09/19/22 08:05 Dose: 24 mg Heparin Sodium (Porcine) (Heparin Sod 5,000 Unit/0.5 Ml Vial) 5,000 units SQ Q8 SADA Stop: 10/11/22 21:59 Last Admin: 09/19/22 14:38 Dose: 5,000 units Lidocaine (Lidocaine 5% 1 Patch) 1 patch TD QAM SADA Stop: 10/11/22 17:29 Last Admin: 09/19/22 08:07 Dose: Not Given Memantine (Memantine Hcl 10 Mg Tab) 10 mg PO BID SADA Stop: 10/11/22 20:59 Last Admin: 09/19/22 08:06 Dose: 10 mg Miscellaneous (Remove Lidoderm Patch) 1 each N/A DAILY@2100 [facility] Stop: 10/11/22 20:59 Last Admin: 09/18/22 21:19 Dose: Not Given Multivitamins/Minerals (Cerovite Adv Formula Tab) 1 tab PO DAILY [facility] Stop: 10/12/22 08:59 Last Admin: 09/19/22 08:06 Dose: 1 tab Olanzapine (Olanzapine 10 Mg/2.1 Ml Sdv) 2.5 mg IM Q4H PRN PRN Reason: Anxiety/Agitation Stop: 10/11/22 23:14 Last Admin: 09/13/22 19:42 Dose: 2.5 mg Olanzapine (Olanzapine Zydis 5 Mg Orally Dis. Tab) 2.5 mg PO Q6 PRN PRN Reason: Anxiety/Agitation Stop: 10/14/22 11:59 Last Admin: 09/18/22 21:18 Dose: 2.5 mg Ondansetron HCl (Ondansetron Inj 2 Mg/Ml 2 Ml Vial) 4 mg IV Q6H PRN PRN Reason: Nausea Stop: 10/11/22 18:22 Pantoprazole Sodium (Pantoprazole 40 Mg Tab) 40 mg PO BID [facility]; Protocol Stop: 10/11/22 20:59 Last Admin: 09/19/22 08:06 Dose: 40 mg Polyethylene Glycol (Polyethylene (Miralax) 17 Gm Pack) 17 gm PO DAILY PRN PRN Reason: Constipation Stop: 10/11/22 18:22 Quetiapine Fumarate (Quetiapine Fumarate 25 Mg Tablet) 50 mg PO TID [facility] Stop: 10/17/22 20:59 Last Admin: 09/19/22 13:58 Dose: Not Given Umeclidinium/Vilanterol (Umeclidinium/Vilanterol 62.5/25mcg 7 Puffs/Inhaler) 1 puffs INH DAILY [facility] Stop: 10/12/22 08:59 Last Admin: 09/19/22 08:06 Dose: 1 puffs
--- NOTE | 2022-09-19 15:23 | CT Scan Report ---
CT OF THE CHEST WITHOUT IV CONTRAST CLINICAL HISTORY: Abnormal cxr findings. COMPARISON STUDY: Chest CT November 22, 2009. Chest radiograph September 11, 2022. CT DOSE: 343.73 mGy.cm TECHNIQUE: Axial images of the chest were obtained without IV contrast. Images were reviewed in the axial, sagittal, and coronal planes. IV contrast was not administered for this examination. Automat ed exposure control was utilized for the study. A dose lowering technique was utilized adhering to t he principles of ALARA. FINDINGS: No enlarged axillary, mediastinal or hilar lymph nodes are present. There is no mediastina l hematoma. There is extensive atherosclerotic plaque of the thoracic aorta. Ascending aorta is mildl y dilated, measuring 4 cm in caliber. Emphysema is noted. There is no pneumothorax or pleural effusio n. The small nodular densities on chest radiograph of September 11, 2022 are due to multiple calcified pleural plaques. There is an indeterminate subpleural 1.5 cm cystic focus within the left lower lobe on image 174 of 311. There is an irregular 1.4 cm subpleural density within the right upper lobe on i mage 141. There is associated pleural retraction. No consolidation is identified to suggest pneumonia . Acute appearing nondisplaced manubrial fracture is noted. There is an age indeterminate nondisplace d sternal fracture. Healing right sixth rib fracture is noted. Numerous old bilateral rib fractures a re present. IMPRESSION: 1. Nodular densities on chest radiograph of September 11, 2022 were due to pleural plaques. 2. 1.4 cm irregular subpleural density within the right upper lobe. Although this could reflect a res olving infectious process or scarring, a neoplasm cannot be excluded. Short-term follow-up chest CT i n 2 months is recommended. 3. Acute appearing nondisplaced manubrial fracture. Healing right sixth rib fracture. No pneumothorax . 4. 1.5 cm subpleural cystic focus within the left lower lobe. This is probably benign but can be asse ssed on follow-up chest CT. ACT 112: Positive. There are findings on this exam that require communication between the performing entity and the patient following Patient Test Result Information Act ([place] Act 112) guidelines. Electronically signed by: Jose Stanley M.D. 09/19/2022 3:20 PM
[2022-09-19] MEDS: ATORVASTATIN 40 MG TAB PO SCH (21:40)
[2022-09-19] MEDS: OLANZAPINE 2.5 MG TAB PO SCH (21:41)
[2022-09-20] MEDS: ACETAMINOPHEN 500 MG TAB PO SCH ×4 (03:16→21:11)
[2022-09-20] MEDS: HEPARIN SOD 5,000 UNIT/0.5 ML VIAL SQ SCH ×3 (05:50→21:12)
[2022-09-20] MEDS: OLANZapine 10 MG/2.1 ML SDV IM PRN (06:04)
[2022-09-20] MEDS: amLODIPine BESYLATE 5 MG TAB PO SCH (07:37)
[2022-09-20] MEDS: FUROSEMIDE 20 MG TAB PO SCH (07:37)
[2022-09-20] MEDS: ATENOLOL 25 MG TABLET PO SCH (07:37)
[2022-09-20] MEDS: GALANTAMINE HYDROBROMIDE 8 MG CAPER PO SCH (07:37)
[2022-09-20] MEDS: CETIRIZINE HCL 10 MG TABLET PO SCH (07:38)
[2022-09-20] MEDS: CEROVITE ADV FORMULA TAB PO SCH (07:38)
[2022-09-20] MEDS: PANTOprazole 40 MG TAB PO SCH ×2 (07:38→21:14)
[2022-09-20] MEDS: ASPIRIN 81 MG ECTAB PO SCH (07:38)
[2022-09-20] MEDS: MEMANTINE HCL 10 MG TAB PO SCH ×2 (07:38→21:13)
[2022-09-20] MEDS: UMECLIDINIUM/VILANTEROL 62.5/25MCG 7 PUFFS/INHALER INH SCH (07:39)
[2022-09-20] MEDS: LIDOCAINE 5% 1 PATCH TD SCH (07:39)
[2022-09-20 08:47] LABS: Basophils # (auto) 0.08 K/uL (0-0.2); Basophils % (auto) 0.8 %; Eosinophils # (auto) 0.11 K/uL (0-0.50); Hematocrit (blood only) 45.7 % (40.1-51.0); Hemoglobin 15.5 g/dl (14.0-18.0); Immature Granulocytes # (auto) 0.04 K/uL (0.00-0.02); Immature Granulocytes % (auto) 0.4 %; Lymphocytes % (auto) 13.3 %; Mean Corpuscular Hemoglobin 33.1 pg (25.0-34.0); Mean Corpuscular Hgb Conc 33.9 g/dL (32.0-36.0); Mean Corpuscular Volume 97.6 fL (80.0-100.0); Mean Platelet Volume 9.6 fL (9.4-12.4); Monocytes # (auto) 0.73 K/uL (0.24-0.82); Neutrophils # (auto) 8.13 K/uL (1.4-6.5); Neutrophils % (auto) 77.5 %; Platelet Count 296 K/uL (130-400); RDW Coefficient of Variation 13.6 % (11.5-14.5); RDW Standard Deviation 48.6 fL (36.4-46.3); Red Blood Count 4.68 M/uL (4.63-6.08); White Blood Count 10.49 K/ul (4.8-10.8)
[2022-09-20 09:16] LABS: BUN Creatinine Ratio 28.6 (10-20); Calcium 9.9 mg/dl (8.5-10.1); Est GFR (African American) 87.5 ml/min; Est GFR (Non-African American) 75.5 ml/min; Potassium 3.9 mmol/L (3.5-5.1)
--- NOTE | 2022-09-20 14:12 | Hospitalist Progress Note ---
Date of Service September 20, 2022 Assessment & Plan (1) Agitation due to dementia: (2) Dementia with behavioral disturbance: (3) CAD (coronary artery disease): (4) Carotid stenosis: (5) COPD (chronic obstructive pulmonary disease): (6) Sleep apnea: (7) HTN (hypertension): (8) GERD (gastroesophageal reflux disease): (9) Barretts esophagus: Plan: This is an 87yo M with a PMH of dementia with behavioral disturbance, HTN, dyslipidemia, CAD s/p stent, COPD, sleep apnea on 2L oxygen HS, GERD, Steward's esophagus, carotid stenosis who presented 09/11 with worsening agitation and hallucinations. 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 Patient had fell 6 times in the last 6 months, last 1 was 2 weeks ago LANGUAGE INTERPRETER. Admitting Work up - Vitals and lab work essentially unremarkable, CT head without acute intracranial abnormality, chest x-ray without acute abnormality. Presence of numerous nodular densities with radiology recommending CT chest. During the hospitalization, patient continued to be intermittently agitated. He was initially placed on Seroquel 50 mg in the morning and in afternoon with 100 at bedtime. He got more sedated; dose was changed to 50 mg 3 times a day. He was eventually changed to Zyprexa 2.5 mg at night from 09/19 due to increasing sedation. Plan; Currently on Zyprexa 2.5 mg at bedtime with as needed IM and oral Zyprexa . -PT OT recommend SNF; needs to be less agitated to be transferred to SNF. -Aspiration precautions. -CT chest follow-up was done on 09/19 due to the findings on the chest x-ray on admission; patient was found to have nondisplaced manubrium fracture. Patient does not have pain or tenderness on examination. Discussed the finding with his POA at bedside; she is aware of the finding as well as knows about the right sixth rib fracture which happened due to recurrent fall prior to his admission. Patient will need follow-up CT scan after discharge to follow-up on it. Acute urinary retention status post [facility] on 09/15 Continue to maintain [facility]; will do trial of void after 7 to 10 days. Pleural plaques Seen in the CT scan done on 09/19; discussed with her about the findings with his POA. Discussed regarding 1.4 cm irregular subpleural density within right upper lobe. Patient will need follow-up CT in 2 months after his discharge. COPD JUAN Continue Anoro Ellipta inhaler, 2L supplemental O2 HS Recent fall with R flank pain Pain contributing to agitation? Trial of lidocaine, scheduled tylenol CAD (coronary artery disease) S/P Stent EKG with bifascicular block - unchanged from previous Continue ASA, statin, atenolol HTN (hypertension) Continue amlodipine, lasix, atenolol Dyslipidemia Continue statin DVT Ppx: SQ heparin Code status: DNR/DNI; discussed with significant other( also his POA) at bedside on 09/16 and 09/17. PCP: [facility] [place] (Dr. [place]) Dispo: PT OT ordered for placement; patient is requiring IM Zyprexa intermittently. Discharged to subacute rehab after patient is less agitated. (10) Falls: Admission and Anticipated Discharge Date Admission Date: September 11, 2022 Subjective Patient seen and examined at bedside. He is much more awake today; not oriented to time place or person. He got agitated intermittently overnight; required 1 dose of IM Zyprexa. Review of Systems Review of Systems: All systems reviewed & are unremarkable except as noted in Subjective Physical Exam Physical Exam: GENERAL: Awake; not in distress. HEENT: No pallor, no icterus. Pupils equal, round and reactive to light. Oral mucosa moist. NECK: No JVD, no neck masses. HEART: S1 and S2 heard. Regular rate and rhythm. No murmur, no gallop. RESPIRATORY SYSTEM: Normal AP diameter. No accessory muscle use. No wheezing, no crackles. ABDOMEN: Soft, bowel sounds present, no facial grimmacing, no distention. Rt flank bruise, doesn't appear tender. CENTRAL NERVOUS SYSTEM: Grossly moves all extremities. EXTREMITIES: No edema, no erythema seen. Results & Data Results & Data ([facility]) Vital Signs (Past 12 Hours) Vital Signs Temp Pulse Resp BP Pulse Ox O2 Del Method 09/20/22 08:01 Room Air 09/20/22 07:48 36.6 C 103 H 16 171/88 H 92 Room Air Laboratory Results Laboratory Results WBC 10.49 K/ul (4.8-10.8) 09/20/22 08:32 RBC 4.68 M/uL (4.63-6.08) 09/20/22 08:32 Hgb 15.5 g/dl (14.0-18.0) 09/20/22 08:32 Hct 45.7 % (40.1-51.0) 09/20/22 08:32 MCV 97.6 fL (80.0-100.0) 09/20/22 08:32 MCH 33.1 pg (25.0-34.0) 09/20/22 08: MCHC 33.9 g/dL (32.0-36.0) 09/20/22 08:32 RDW Std Deviation 48.6 fL (36.4-46.3) H 09/20/22 08:32 RDW Coeff of Kristina 13.6 % (11.5-14.5) 09/20/22 08:32 Plt Count 296 K/uL (130-400) 09/20/22 08:32 MPV 9.6 fL (9.4-12.4) 09/20/22 08:32 Immature Gran % (Auto) 0.4 % 09/20/22 08:32 Neut % (Auto) 77.5 % 09/20/22 08:32 Lymph % (Auto) 13.3 % 09/20/22 08:32 [place] % (Auto) 7.0 % 09/20/22 08:32 Eos % (Auto) 1.0 % 09/20/22 08:32 Baso % (Auto) 0.8 % 09/20/22 08:32 Neut # (Auto) 8.13 K/uL (1.4-6.5) H 09/20/22 08:32 Lymph # (Auto) 1.40 K/uL (1.2-3.4) 09/20/22 08:32 [place] # (Auto) 0.73 K/uL (0.24-0.82) 09/20/22 08:32 Eos # (Auto) 0.11 K/uL (0-0.50) 09/20/22 08:32 Baso # (Auto) 0.08 K/uL (0-0.2) 09/20/22 08:32 Immature Gran # (Auto) 0.04 K/uL (0.00-0.02) H 09/20/22 08:32 Sodium 145 mmol/L (136-145) 09/20/22 08:32 Potassium 3.9 mmol/L (3.5-5.1) 09/20/22 08:32 Chloride 105 mmol/L (98-107) 09/20/22 08:32 Carbon Dioxide 31 mmol/L (21-32) 09/20/22 08:32 Anion Gap 9 (3-11) 09/20/22 08:32 BUN 26 mg/dl (6-23) H 09/20/22 08:32 Creatinine 0.91 mg/dl (0.6-1.4) 09/20/22 08:32 Est Cr Clr Drug Dosing 46.0 ml/min 09/20/22 08:32 Est GFR ( Amer) 87.5 ml/min 09/20/22 08:32 Est GFR (Non-Af Amer) 75.5 ml/min 09/20/22 08:32 BUN/Creatinine Ratio 28.6 (10-20) H 09/20/22 08:32 Glucose 119 mg/dl (70-99(Fasting)) H 09/20/22 08:32 Calcium 9.9 mg/dl (8.5-10.1) 09/20/22 08:32 Phosphorus 3.2 mg/dl (2.5-4.9) 09/16/22 08:13 Magnesium 2.2 mg/dl (1.7-2.4) 09/16/22 08:13 Total Bilirubin 0.6 mg/dl (0.2-1.0) 09/11/22 14:13 AST 23 U/L (13-39) 09/11/22 14:13 ALT 20 U/L (7-52) 09/11/22 14:13 Alkaline Phosphatase 146 U/L (34-104) H 09/11/22 14:13 Troponin I High Sens 8.8 pg/ml (0-20) 09/11/22 14:13 Total Protein 8.1 gm/dl (6.0-8.3) 09/11/22 14:13 Albumin 3.6 gm/dl (3.4-5.0) 09/11/22 14:13 Globulin 4.5 gm/dl (2.5-4.0) H 09/11/22 14:13 Albumin/Globulin Ratio 0.8 (0.9-2) L 09/11/22 14:13 TSH 1.480 uIu/ml (0.300-4.500) 09/11/22 14:13 Urine Color Yellow 09/11/22 16:15 Urine Appearance Clear (Clear) 09/11/22 16:15 Urine pH 6.0 (4.5-7.5) 09/11/22 16:15 Ur Specific [place] 1.016 (1.000-1.030) 09/11/22 16:15 Urine Protein Negative (Negative) 09/11/22 16:15 Urine Glucose (UA) Negative (Negative) 09/11/22 16:15 Urine Ketones Negative (Negative) 09/11/22 16:15 Urine Blood Negative (Negative) 09/11/22 16:15 Urine Nitrite Negative (Negative) 09/11/22 16:15 Urine Bilirubin Negative (Negative) 09/11/22 16:15 Urine Urobilinogen Negative (Negative) 09/11/22 16:15 Ur Leukocyte Esterase Negative (Negative) 09/11/22 16:15 SARS-CoV-2, RNA, NAAT NEGATIVE (NEGATIVE) 09/11/22 14:45 Impressions Chest X-Ray 09/11/22 14:03 XR chest 1V portable CLINICAL HISTORY: weakness TECHNIQUE: Single frontal radiograph of the chest was obtained. Comparison: Comparison is made to chest radiograph 01/20/2019 FINDINGS: No lines and tubes are seen. Calcified aortic knob is seen. There is nodular densities are seen bilaterally in the lungs, appearance is similar to prior exam. Interstitial thickening is noted. Atelectasis is noted in the right lung base. No evidence of pleural effusion or pneumothorax. IMPRESSION: 1. No acute abnormalities are seen. 2. Numerous nodular densities are seen bilaterally. Comparison with outside imaging, if available, is recommended, otherwise nonemergent CT chest can be performed for further evaluation. ACT 112: Negative or not required by law. Electronically signed by: Jerel Jimenez M.D. 09/11/2022 2:[address] 09/11/22 14:03 CT head/brain wo con CLINICAL HISTORY: increasing confusion Technique: Contiguous axial CT images of the head were acquired from the base of the skull to the vertex without intravenous contrast administration. Images were viewed in brain, subdural and bone windows. Automated dose lowering techniques and/or adjustment according to patient size were utilized for this exam. Comparison: Comparison is made to CT head 01/20/2019 Findings: Areas of decreased attenuation are present in the periventricular and subcortical white matter bilaterally consistent with small vessel ischemic disease. Generalized cerebral atrophy with commensurate enlargement of the ventricles, sulci, and cisterns is also present. There is no acute intracranial hemorrhage or evidence of acute territorial infarction. No shift of the midline structures, mass effect, or extra-axial abnormalities are shown. Atherosclerotic calcifications are present in the intracranial segments of the internal carotid arteries. Left parietal encephalomalacia is identified. Imaged portions of the paranasal sinuses and mastoid air cells are clear. The orbits appear normal. There are no acute fractures of the calvaria or scalp swelling. Impression: No acute intracranial hemorrhage, no evidence of acute territorial infarction or other acute intracranial disease process. ACT 112: Negative or not required by law. Electronically signed by: Jerel Jimenez M.D. 09/11/2022 2:[address] 09/19/22 14:38 CT OF THE CHEST WITHOUT IV CONTRAST CLINICAL HISTORY: Abnormal cxr findings. COMPARISON STUDY: Chest CT November 22, 2009. Chest radiograph September 11, 2022. CT DOSE: 343.73 mGy.cm TECHNIQUE: Axial images of the chest were obtained without IV contrast. Images were reviewed in the axial, sagittal, and coronal planes. IV contrast was not administered for this examination. Automated exposure control was utilized for the study. A dose lowering technique was utilized adhering to the principles of ALARA. FINDINGS: No enlarged axillary, mediastinal or hilar lymph nodes are present. There is no mediastinal hematoma. There is extensive atherosclerotic plaque of the thoracic aorta. Ascending aorta is mildly dilated, measuring 4 cm in caliber. Emphysema is noted. There is no pneumothorax or pleural effusion. The small nodular densities on chest radiograph of September 11, 2022 are due to multiple calcified pleural plaques. There is an indeterminate subpleural 1.5 cm cystic focus within the left lower lobe on image 174 of 311. There is an irregular 1.4 cm subpleural density within the right upper lobe on image 141. There is associated pleural retraction. No consolidation is identified to suggest pneumonia. Acute appearing nondisplaced manubrial fracture is noted. There is an age indeterminate nondisplaced sternal fracture. Healing right sixth rib fracture is noted. Numerous old bilateral rib fractures are present. IMPRESSION: 1. Nodular densities on chest radiograph of September 11, 2022 were due to pleural plaques. 2. 1.4 cm irregular subpleural density within the right upper lobe. Although this could reflect a resolving infectious process or scarring, a neoplasm cannot be excluded. Short-term follow-up chest CT in 2 months is recommended. 3. Acute appearing nondisplaced manubrial fracture. Healing right sixth rib fracture. No pneumothorax. 4. 1.5 cm subpleural cystic focus within the left lower lobe. This is probably benign but can be assessed on follow-up chest CT. ACT 112: Positive. There are findings on this exam that require communication between the performing entity and the patient following Patient Test Result Information Act ([place] Act 112) guidelines. Electronically signed by: Jose Stanley M.D. 09/19/2022 3:20 PM (1) Falls Encounter type: initial encounter Qualified Code(s): W19.XXXA - Unspecified fall, initial encounter
[2022-09-20] MEDS: OLANZAPINE 2.5 MG TAB PO SCH (21:12)
[2022-09-20] MEDS: ATORVASTATIN 40 MG TAB PO SCH (21:13)
[2022-09-21] MEDS: ACETAMINOPHEN 500 MG TAB PO SCH ×2 (04:58→12:02)
[2022-09-21] MEDS: HEPARIN SOD 5,000 UNIT/0.5 ML VIAL SQ SCH ×3 (05:00→21:21)
[2022-09-21] MEDS: PANTOprazole 40 MG TAB PO SCH ×2 (08:25→21:20)
[2022-09-21] MEDS: GALANTAMINE HYDROBROMIDE 8 MG CAPER PO SCH (08:28)
[2022-09-21] MEDS: CETIRIZINE HCL 10 MG TABLET PO SCH (08:28)
[2022-09-21] MEDS: ATENOLOL 25 MG TABLET PO SCH (08:29)
[2022-09-21] MEDS: MEMANTINE HCL 10 MG TAB PO SCH ×2 (08:29→21:20)
[2022-09-21] MEDS: FUROSEMIDE 20 MG TAB PO SCH (08:30)
[2022-09-21] MEDS: CEROVITE ADV FORMULA TAB PO SCH (08:30)
[2022-09-21] MEDS: amLODIPine BESYLATE 5 MG TAB PO SCH (08:30)
[2022-09-21] MEDS: ASPIRIN 81 MG ECTAB PO SCH (08:30)
[2022-09-21] MEDS: UMECLIDINIUM/VILANTEROL 62.5/25MCG 7 PUFFS/INHALER INH SCH (08:32)
[2022-09-21] MEDS: LIDOCAINE 5% 1 PATCH TD SCH (08:34)
[2022-09-21] MEDS: D5W AND LACTATED RINGERS 1,000 ML IV SCH (12:02)
--- NOTE | 2022-09-21 12:25 | Hospitalist Progress Note ---
Date of Service September 21, 2022 Assessment & Plan (1) Agitation due to dementia: (2) Dementia with behavioral disturbance: (3) CAD (coronary artery disease): (4) Carotid stenosis: (5) COPD (chronic obstructive pulmonary disease): (6) Sleep apnea: (7) HTN (hypertension): (8) GERD (gastroesophageal reflux disease): (9) Barretts esophagus: Plan: This is an 87yo M with a PMH of dementia with behavioral disturbance, HTN, dyslipidemia, CAD s/p stent, COPD, sleep apnea on 2L oxygen HS, GERD, Steward's esophagus, carotid stenosis who presented 09/11 with worsening agitation and hallucinations. 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 Admitting Work up - Vitals and lab work essentially unremarkable, CT head without acute intracranial abnormality, chest x-ray without acute abnormality. Presence of numerous nodular densities with radiology recommending CT chest. During the hospitalization, patient continued to be intermittently agitated. He was initially placed on Seroquel 50 mg in the morning and in afternoon with 100 at bedtime. He got more sedated; dose was changed to 50 mg 3 times a day. He was eventually changed to Zyprexa 2.5 mg at night from 09/19 due to increasing sedation. Plan; Currently on Zyprexa 2.5 mg at bedtime with as needed IM and oral Zyprexa . -PT OT recommend SNF; needs to be less agitated to be transferred to SNF. -Aspiration precautions. -CT chest follow-up was done on 09/19 due to the findings on the chest x-ray on admission; patient was found to have nondisplaced manubrium fracture. Patient does not have pain or tenderness on examination. Discussed the finding with his POA at bedside; she is aware of the finding as well as knows about the right six th rib fracture which happened due to recurrent fall prior to his admission. Patient will need follow-up CT scan after discharge to follow-up on it. Acute urinary retention status post [facility] on 09/15 Patient did not have any urine output after removal of [facility] on 09/20. [facility] replaced again on 09/21. Started on D5 LR. Pleural plaques Seen in the CT scan done on 09/19; discussed with her about the findings with his POA. Discussed regarding 1.4 cm irregular subpleural density within right upper lobe. Patient will need follow-up CT in 2 months after his discharge. COPD JUAN Continue Anoro Ellipta inhaler, 2L supplemental O2 HS Recent fall with R flank pain Pain contributing to agitation? Trial of lidocaine, scheduled tylenol CAD (coronary artery disease) S/P Stent EKG with bifascicular block - unchanged from previous Continue ASA, statin, atenolol HTN (hypertension) Continue amlodipine, lasix, atenolol Dyslipidemia Continue statin DVT Ppx: SQ heparin Code status: DNR/DNI; discussed with significant other( also his POA) at bedside on 09/16 and 09/17. PCP: [facility] in [place] (Dr. Clarke) Dispo: PT OT assessment done; plan is to discharge him to rehab. Patient appear calmer last couple of days. (10) Falls: Admission and Anticipated Discharge Date Admission Date: September 11, 2022 Subjective Patient seen and examined at bedside. He is calm; not cooperative. Not agitated. Review of Systems Review of Systems: All systems reviewed & are unremarkable except as noted in Subjective Physical Exam Physical Exam: GENERAL: Awake; not in distress. HEENT: No pallor, no icterus. Pupils equal, round and reactive to light. Oral mucosa moist. NECK: No JVD, no neck masses. HEART: S1 and S2 heard. Regular rate and rhythm. No murmur, no gallop. RESPIRATORY SYSTEM: Normal AP diameter. No accessory muscle use. No wheezing, no crackles. ABDOMEN: Soft, bowel sounds present, no facial grimmacing, no distention. Rt flank bruise, doesn't appear tender. CENTRAL NERVOUS SYSTEM: Grossly moves all extremities. EXTREMITIES: No edema, no erythema seen. Results & Data Results & Data ([facility]) Vital Signs (Past 12 Hours) Vital Signs Temp Pulse Resp BP BP Pulse Ox O2 Del Method 09/21/22 12:08 144/58 H 95 Room Air 09/21/22 08:45 Nasal Cannula 09/21/22 08:15 36.6 C 68 16 186/75 H 98 Nasal Cannula O2 Flow Rate 09/21/22 12:08 09/21/22 08:45 3 09/21/22 08:15 3 Laboratory Results Laboratory Results WBC 6.46 K/ul (4.8-10.8) 09/21/22 12:28 RBC 4.24 M/uL (4.63-6.08) L 09/21/22 12:28 Hgb 13.7 g/dl (14.0-18.0) L 09/21/22 12:28 Hct 41.0 % (40.1-51.0) 09/21/22 12:28 MCV 96.7 fL (80.0-100.0) 09/21/22 12:28 MCH 32.3 pg (25.0-34.0) 09/21/22 12:28 MCHC 33.4 g/dL (32.0-36.0) 09/21/22 12:28 RDW Std Deviation 49.4 fL (36.4-46.3) H 09/21/22 12:28 RDW Coeff of Kristina 14.0 % (11.5-14.5) 09/21/22 12:28 Plt Count 302 K/uL (130-400) 09/21/22 12:28 MPV 10.0 fL (9.4-12.4) 09/21/22 12:28 Immature Gran % (Auto) 0.2 % 09/21/22 12:28 Neut % (Auto) 58.6 % 09/21/22 12:28 Lymph % (Auto) 24.9 % 09/21/22 12:28 [place] % (Auto) 9.4 % 09/21/22 12:28 Eos % (Auto) 5.7 % 09/21/22 12:28 Baso % (Auto) 1.2 % 09/21/22 12:28 Neut # (Auto) 3.78 K/uL (1.4-6.5) 09/21/22 12:28 Lymph # (Auto) 1.61 K/uL (1.2-3.4) 09/21/22 12:28 [place] # (Auto) 0.61 K/uL (0.24-0.82) 09/21/22 12:28 Eos # (Auto) 0.37 K/uL (0-0.50) 09/21/22 12:28 Baso # (Auto) 0.08 K/uL (0-0.2) 09/21/22 12:28 Immature Gran # (Auto) 0.01 K/uL (0.00-0.02) 09/21/22 12:28 Sodium 145 mmol/L (136-145) 09/20/22 08:32 Potassium 3.9 mmol/L (3.5-5.1) 09/20/22 08:32 Chloride 105 mmol/L (98-107) 09/20/22 08:32 Carbon Dioxide 31 mmol/L (21-32) 09/20/22 08:32 Anion Gap 9 (3-11) 09/20/22 08:32 BUN 26 mg/dl (6-23) H 09/20/22 08:32 Creatinine 0.91 mg/dl (0.6-1.4) 09/20/22 08:32 Est Cr Clr Drug Dosing 46.0 ml/min 09/20/22 08:32 Est GFR ( Amer) 87.5 ml/min 09/20/22 08:32 Est GFR (Non-Af Amer) 75.5 ml/min 09/20/22 08:32 BUN/Creatinine Ratio 28.6 (10-20) H 09/20/22 08:32 Glucose 119 mg/dl (70-99(Fasting)) H 09/20/22 08:32 Calcium 9.9 mg/dl (8.5-10.1) 09/20/22 08:32 Phosphorus 3.2 mg/dl (2.5-4.9) 09/16/22 08:13 Magnesium 2.2 mg/dl (1.7-2.4) 09/16/22 08:13 Total Bilirubin 0.6 mg/dl (0.2-1.0) 09/11/22 14:13 AST 23 U/L (13-39) 09/11/22 14:13 ALT 20 U/L (7-52) 09/11/22 14:13 Alkaline Phosphatase 146 U/L (34-104) H 09/11/22 14:13 Troponin I High Sens 8.8 pg/ml (0-20) 09/11/22 14:13 Total Protein 8.1 gm/dl (6.0-8.3) 09/11/22 14:13 Albumin 3.6 gm/dl (3.4-5.0) 09/11/22 14:13 Globulin 4.5 gm/dl (2.5-4.0) H 09/11/22 14:13 Albumin/Globulin Ratio 0.8 (0.9-2) L 09/11/22 14:13 TSH 1.480 uIu/ml (0.300-4.500) 09/11/22 14:13 Urine Color Yellow 09/11/22 16:15 Urine Appearance Clear (Clear) 09/11/22 16:15 Urine pH 6.0 (4.5-7.5) 09/11/22 16:15 Ur Specific [place] 1.016 (1.000-1.030) 09/11/22 16:15 Urine Protein Negative (Negative) 09/11/22 16:15 Urine Glucose (UA) Negative (Negative) 09/11/22 16:15 Urine Ketones Negative (Negative) 09/11/22 16:15 Urine Blood Negative (Negative) 09/11/22 16:15 Urine Nitrite Negative (Negative) 09/11/22 16:15 Urine Bilirubin Negative (Negative) 09/11/22 16:15 Urine Urobilinogen Negative (Negative) 09/11/22 16:15 Ur Leukocyte Esterase Negative (Negative) 09/11/22 16:15 SARS-CoV-2, RNA, NAAT NEGATIVE (NEGATIVE) 09/11/22 14:45 Impressions Chest X-Ray 09/11/22 14:03 XR chest 1V portable CLINICAL HISTORY: weakness TECHNIQUE: Single frontal radiograph of the chest was obtained. Comparison: Comparison is made to chest radiograph 01/20/2019 FINDINGS: No lines and tubes are seen. Calcified aortic knob is seen. There is nodular densities are seen bilaterally in the lungs, appearance is similar to prior exam. Interstitial thickening is noted. Atelectasis is noted in the right lung base. No evidence of pleural effusion or pneumothorax. IMPRESSION: 1. No acute abnormalities are seen. 2. Numerous nodular densities are seen bilaterally. Comparison with outside imaging, if available, is recommended, otherwise nonemergent CT chest can be performed for further evaluation. ACT 112: Negative or not required by law. Electronically signed by: Jerel Jimenez M.D. 09/11/2022 2:[address] 09/11/22 14:03 CT head/brain wo con CLINICAL HISTORY: increasing confusion Technique: Contiguous axial CT images of the head were acquired from the base of the skull to the vertex without intravenous contrast administration. Images were viewed in brain, subdural and bone windows. Automated dose lowering techniques and/or adjustment according to patient size were utilized for this exam. Comparison: Comparison is made to CT head 01/20/2019 Findings: Areas of decreased attenuation are present in the periventricular and subcortical white matter bilaterally consistent with small vessel ischemic disease. Generalized cerebral atrophy with commensurate enlargement of the ventricles, sulci, and cisterns is also present. There is no acute intracranial hemorrhage or evidence of acute territorial infarction. No shift of the midline structures, mass effect, or extra-axial abnormalities are shown. Atherosclerotic calcifications are present in the intracranial segments of the internal carotid arteries. Left parietal encephalomalacia is identified. Imaged portions of the paranasal sinuses and mastoid air cells are clear. The orbits appear normal. There are no acute fractures of the calvaria or scalp swelling. Impression: No acute intracranial hemorrhage, no evidence of acute territorial infarction or other acute intracranial disease process. ACT 112: Negative or not required by law. Electronically signed by: Jerel Jimenez M.D. 09/11/2022 2:[address] 09/19/22 14:38 CT OF THE CHEST WITHOUT IV CONTRAST CLINICAL HISTORY: Abnormal cxr findings. COMPARISON STUDY: Chest CT November 22, 2009. Chest radiograph September 11, 2022. CT DOSE: 343.73 mGy.cm TECHNIQUE: Axial images of the chest were obtained without IV contrast. Images were reviewed in the axial, sagittal, and coronal planes. IV contrast was not administered for this examination. Automated exposure control was utilized for the study. A dose lowering technique was utilized adhering to the principles of ALARA. FINDINGS: No enlarged axillary, mediastinal or hilar lymph nodes are present. There is no mediastinal hematoma. There is extensive atherosclerotic plaque of the thoracic aorta. Ascending aorta is mildly dilated, measuring 4 cm in caliber. Emphysema is noted. There is no pneumothorax or pleural effusion. The small nodular densities on chest radiograph of September 11, 2022 are due to multiple calcified pleural plaques. There is an indeterminate subpleural 1.5 cm cystic focus within the left lower lobe on image 174 of 311. There is an irregular 1.4 cm subpleural density within the right upper lobe on image 141. There is associated pleural retraction. No consolidation is identified to suggest pneumonia. Acute appearing nondisplaced manubrial fracture is noted. There is an age indeterminate nondisplaced sternal fracture. Healing right sixth rib fracture is noted. Numerous old bilateral rib fractures are present. IMPRESSION: 1. Nodular densities on chest radiograph of September 11, 2022 were due to pleural plaques. 2. 1.4 cm irregular subpleural density within the right upper lobe. Although this could reflect a resolving infectious process or scarring, a neoplasm cannot be excluded. Short-term follow-up chest CT in 2 months is recommended. 3. Acute appearing nondisplaced manubrial fracture. Healing right sixth rib fracture. No pneumothorax. 4. 1.5 cm subpleural cystic focus within the left lower lobe. This is probably b enign but can be assessed on follow-up chest CT. ACT 112: Positive. There are findings on this exam that require communication between the performing entity and the patient following Patient Test Result Information Act ([place] Act 112) guidelines. Electronically signed by: Jose Stanley M.D. 09/19/2022 3:20 PM (1) Falls Encounter type: initial encounter Qualified Code(s): W19.XXXA - Unspecified fall, initial encounter
[2022-09-21 12:44] LABS: Basophils # (auto) 0.08 K/uL (0-0.2); Basophils % (auto) 1.2 %; Eosinophils # (auto) 0.37 K/uL (0-0.50); Eosinophils % (auto) 5.7 %; Hemoglobin 13.7 g/dl (14.0-18.0); Immature Granulocytes # (auto) 0.01 K/uL (0.00-0.02); Immature Granulocytes % (auto) 0.2 %; Lymphocytes # (auto) 1.61 K/uL (1.2-3.4); Lymphocytes % (auto) 24.9 %; Mean Corpuscular Hemoglobin 32.3 pg (25.0-34.0); Mean Corpuscular Hgb Conc 33.4 g/dL (32.0-36.0); Mean Corpuscular Volume 96.7 fL (80.0-100.0); Monocytes # (auto) 0.61 K/uL (0.24-0.82); Monocytes % (auto) 9.4 %; Neutrophils # (auto) 3.78 K/uL (1.4-6.5); Neutrophils % (auto) 58.6 %; Platelet Count 302 K/uL (130-400); RDW Standard Deviation 49.4 fL (36.4-46.3); Red Blood Count 4.24 M/uL (4.63-6.08); White Blood Count 6.46 K/ul (4.8-10.8)
[2022-09-21 13:06] LABS: BUN Creatinine Ratio 27.5 (10-20); Calcium 9.4 mg/dl (8.5-10.1); Creatinine Clr Calc Pharmacy 41.1 ml/min; Est GFR (African American) 76.2 ml/min; Est GFR (Non-African American) 65.8 ml/min; Potassium 3.5 mmol/L (3.5-5.1)
--- NOTE | 2022-09-21 16:03 | Psychiatric Progress Note ---
Date of Service September 21, 2022 Impression / Recommendations Impression 87 yo male with hx of dementia, increased agitation upon admission despite Seroquel 50 mg BID due to suspected combination of progressive cognitive change, sundowning, and hypoxia. Diagnostically could be Lewy Body dementia given periods of waxing waning in terms of skills/cognition from day to day and consistent visual hallucinations. Likely also delirium component which could be contributing to alteration in level of alertness. Given this possibility continue to be cautious with antipsychotics given likelihood of increased sensitivity. Continue cross-taper from seroquel to zyprexa. Reviewed with his partner. Black box warning for all cause mortality but risk/benefit profile favors treatment given ongoing agitation preventing safe disposition. 09/21/22: some improvement of agitation with switch to zyprexa po at qhs. Still with shifted sleep/wake cycle. Possible mild TD of mouth, goal to continue with limiting antipsychotic use as much as possible. (1) Dementia with behavioral disturbance: Plan 09/21/22: responding well to zyprexa 2.5mg po qhs with additional 2.5mg po q6h prn. Interval History Identifying Information 87 yo male from [place], dx dementia 4 years ago, admit medically as increasingly agitated/hypoxic/unable to be maintained at home. initial consult completed 09/12/22 Chief Complaint "what? oh, yeah". Subjective Subjective Patient was seen & assessed and interval progress reviewed. Did not require any IM medication within last 24 hours. Sleeping this afternoon. Spoke with his partner at bedside. After opening blinds to allow light in Paul woke slightly, encouraged him to eat lunch at bedside. Some repetitive lip movements while sleeping but partner notes he's done this due to years of constantly chewing gum. Unclear if new symptom/side effect from medication. Physical Exam Psychiatric Apperance: appropriately dressed Eye Contact: + poor eye contact Motor Behavior: + abnormal motor movements (lip movements, unclear if TD versus patterned behavior) Speech: + abnormal rate/rhythm/volume of speech (brief ) Affect: + labile affect Mood: no irritable mood Thought Process: + looseness of associations Thought Content: + preoccupation Hallucinations: no auditory hallucinations and no visual hallucinations Cognition: language grossly intact; + recent memory not intact and + attention not intact Insight: + severely impaired insight Judgement: + severely impaired judgement Vital Signs (Past 24 Hours) Last Vital Signs Temp 36.6 C 09/21/22 15:19 Pulse 70 09/21/22 15:19 Resp 22 09/21/22 15:19 BP 148/81 H 09/21/22 15:19 Pulse Ox 98 09/21/22 15:19 O2 Del Method 09/21/22 15:19 O2 Flow Rate 3 09/21/22 15:19 Results & Data ([facility]) Laboratory Results Laboratory Results - last 24 hr 09/21/22 09/21/22 12:28 12:28 WBC 6.46 RBC 4.24 L Hgb 13.7 L Hct 41.0 MCV 96.7 MCH 32.3 MCHC 33.4 RDW Std Deviation 49.4 H RDW Coeff of Kristina 14.0 Plt Count 302 MPV 10.0 Immature Gran % (Auto) 0.2 Neut % (Auto) 58.6 Lymph % (Auto) 24.9 [place] % (Auto) 9.4 Eos % (Auto) 5.7 Baso % (Auto) 1.2 Neut # (Auto) 3.78 Lymph # (Auto) 1.61 [place] # (Auto) 0.61 Eos # (Auto) 0.37 Baso # (Auto) 0.08 Immature Gran # (Auto) 0.01 Sodium 145 Potassium 3.5 Chloride 108 H Carbon Dioxide 31 Anion Gap 6 BUN 28 H Creatinine 1.02 Est Cr Clr Drug Dosing 41.1 Est GFR ( Amer) 76.2 Est GFR (Non-Af Amer) 65.8 BUN/Creatinine Ratio 27.5 H Glucose 129 H Calcium 9.4 Current Inpatient Medications Current Inpatient Medications: Current Inpatient Medications Acetaminophen (Acetaminophen 325 Mg Tab) 650 mg PO Q8H SADA Stop: 10/21/22 21:59 Amlodipine Besylate (Amlodipine Besylate 5 Mg Tab) 5 mg PO DAILY SADA Stop: 10/12/22 08:59 Last Admin: 09/21/22 08:30 Dose: 5 mg Aspirin (Aspirin 81 Mg Ectab) 81 mg PO DAILY SADA Stop: 10/12/22 08:59 Last Admin: 09/21/22 08:30 Dose: 81 mg Atenolol (Atenolol 25 Mg Tablet) 12.5 mg PO DAILY SADA Stop: 10/12/22 08:59 Last Admin: 09/21/22 08:29 Dose: 12.5 mg Atorvastatin Calcium (Atorvastatin 40 Mg Tab) 80 mg PO HS SADA Stop: 10/11/22 20:59 Last Admin: 09/20/22 21:13 Dose: 80 mg Cetirizine HCl (Cetirizine Hcl 10 Mg Tablet) 10 mg PO DAILY SADA Stop: 10/12/22 08:59 Last Admin: 09/21/22 08:28 Dose: 10 mg Furosemide (Furosemide 20 Mg Tab) 20 mg PO DAILY SADA Stop: 10/12/22 08:59 Last Admin: 09/21/22 08:30 Dose: 20 mg Galantamine Hydrobromide (Galantamine Hydrobromide 8 Mg Caper) 24 mg PO DAILY SADA Stop: 10/12/22 08:59 Last Admin: 09/21/22 08:28 Dose: 24 mg Heparin Sodium (Porcine) (Heparin Sod 5,000 Unit/0.5 Ml Vial) 5,000 units SQ Q8 SADA Stop: 10/11/22 21:59 Last Admin: 09/21/22 13:55 Dose: 5,000 units Dextrose/Lactated Ringer's (D5w And Lactated Ringers) 1,000 mls @ 80 mls/hr IV .[id number] SADA Stop: 09/22/22 06:00 Last Admin: 09/21/22 12:02 Dose: 80 mls/hr Lidocaine (Lidocaine 5% 1 Patch) 1 patch TD QAM SADA Stop: 10/11/22 17:29 Last Admin: 09/21/22 08:34 Dose: Not Given Memantine (Memantine Hcl 10 Mg Tab) 10 mg PO BID SADA Stop: 10/11/22 20:59 Last Admin: 09/21/22 08:29 Dose: 10 mg Miscellaneous (Remove Lidoderm Patch) 1 each N/A DAILY@2100 SADA Stop: 10/11/22 20:59 Last Admin: 09/20/22 21:14 Dose: Not Given Multivitamins/Minerals (Cerovite Adv Formula Tab) 1 tab PO DAILY SADA Stop: 10/12/22 08:59 Last Admin: 09/21/22 08:30 Dose: 1 tab Olanzapine (Olanzapine 10 Mg/2.1 Ml Sdv) 2.5 mg IM Q4H PRN PRN Reason: Anxiety/Agitation Stop: 10/11/22 23:14 Last Admin: 09/20/22 06:04 Dose: 2.5 mg Olanzapine (Olanzapine Zydis 5 Mg Orally Dis. Tab) 2.5 mg PO Q6 PRN PRN Reason: Anxiety/Agitation Stop: 10/14/22 11:59 Last Admin: 09/18/22 21:18 Dose: 2.5 mg Olanzapine (Olanzapine 2.5 Mg Tab) 2.5 mg PO HS SADA Stop: 10/19/22 20:59 Last Admin: 09/20/22 21:12 Dose: 2.5 mg Ondansetron HCl (Ondansetron Inj 2 Mg/Ml 2 Ml Vial) 4 mg IV Q6H PRN PRN Reason: Nausea Stop: 10/11/22 18:22 Pantoprazole Sodium (Pantoprazole 40 Mg Tab) 40 mg PO BID [facility]; Protocol Stop: 10/11/22 20:59 Last Admin: 09/21/22 08:25 Dose: 40 mg Polyethylene Glycol (Polyethylene (Miralax) 17 Gm Pack) 17 gm PO DAILY PRN PRN Reason: Constipation Stop: 10/11/22 18:22 Umeclidinium/Vilanterol (Umeclidinium/Vilanterol 62.5/25mcg 7 Puffs/Inhaler) 1 puffs INH DAILY SADA Stop: 10/12/22 08:59 Last Admin: 09/21/22 08:32 Dose: 1 puffs
[2022-09-21] MEDS: OLANZapine 10 MG/2.1 ML SDV IM PRN (16:58)
[2022-09-21] MEDS: ACETAMINOPHEN 325 MG TAB PO SCH (21:18)
[2022-09-21] MEDS: ATORVASTATIN 40 MG TAB PO SCH (21:22)
[2022-09-21] MEDS: OLANZAPINE 2.5 MG TAB PO SCH (21:23)
[2022-09-22] MEDS: D5W AND LACTATED RINGERS 1,000 ML IV SCH
[2022-09-22] MEDS: OLANZapine 10 MG/2.1 ML SDV IM PRN (02:18)
[2022-09-22] MEDS: ACETAMINOPHEN 325 MG TAB PO SCH ×2 (05:41→13:12)
[2022-09-22] MEDS: HEPARIN SOD 5,000 UNIT/0.5 ML VIAL SQ SCH ×3 (05:42→21:07)
[2022-09-22] MEDS: ATENOLOL 25 MG TABLET PO SCH ×2 (08:33→10:43)
[2022-09-22] MEDS: CETIRIZINE HCL 10 MG TABLET PO SCH ×2 (08:33→10:43)
[2022-09-22] MEDS: ASPIRIN 81 MG ECTAB PO SCH ×2 (08:34→10:43)
[2022-09-22] MEDS: PANTOprazole 40 MG TAB PO SCH ×3 (08:34→20:22)
[2022-09-22] MEDS: amLODIPine BESYLATE 5 MG TAB PO SCH ×2 (08:34→10:43)
[2022-09-22] MEDS: CEROVITE ADV FORMULA TAB PO SCH ×2 (08:34→10:43)
[2022-09-22] MEDS: GALANTAMINE HYDROBROMIDE 8 MG CAPER PO SCH ×2 (08:34→10:43)
[2022-09-22] MEDS: FUROSEMIDE 20 MG TAB PO SCH ×2 (08:34→10:43)
[2022-09-22] MEDS: MEMANTINE HCL 10 MG TAB PO SCH ×3 (08:34→20:22)
[2022-09-22] MEDS: LIDOCAINE 5% 1 PATCH TD SCH (08:35)
[2022-09-22] MEDS: UMECLIDINIUM/VILANTEROL 62.5/25MCG 7 PUFFS/INHALER INH SCH ×2 (08:35→10:44)
--- NOTE | 2022-09-22 08:44 | CT Scan Report ---
CT head/brain wo con CLINICAL HISTORY: fall. headache Technique: Contiguous axial CT images of the head were acquired from the base of the skull to the ana michelle without intravenous contrast administration. Images were viewed in brain, subdural and bone [facility]. Automated dose lowering techniques and/or adjustment according to patient size were utilized for this exam. Comparison: Comparison is made to CT head 09/11/2022 Findings: Areas of decreased attenuation are present in the periventricular and subcortical white matter bilate rally consistent with small vessel ischemic disease. Generalized cerebral atrophy with commensurate e nlargement of the ventricles, sulci, and cisterns is also present. There is no acute intracranial hem orrhage or evidence of acute territorial infarction. No shift of the midline structures, mass effect, or extra-axial abnormalities are shown. Atherosclerotic calcifications are present in the intracran ial segments of the internal carotid arteries. Encephalomalacia is in the left parietal lobe, unchang ed. Imaged portions of the paranasal sinuses and mastoid air cells are clear. The orbits appear normal. There are no acute fractures of the calvaria or scalp swelling. Impression: No acute intracranial hemorrhage, no evidence of acute territorial infarction or other acute intracra nial disease process. ACT 112: Negative or not required by law. Electronically signed by: Jerel Jimenez M.D. 09/22/2022 8:41 AM
[2022-09-22 10:47] LABS: Basophils # (auto) 0.08 K/uL (0-0.2); Basophils % (auto) 1.1 %; Eosinophils # (auto) 0.35 K/uL (0-0.50); Eosinophils % (auto) 4.8 %; Hematocrit (blood only) 42.2 % (40.1-51.0); Hemoglobin 14.4 g/dl (14.0-18.0); Immature Granulocytes # (auto) 0.02 K/uL (0.00-0.02); Immature Granulocytes % (auto) 0.3 %; Lymphocytes # (auto) 2.15 K/uL (1.2-3.4); Lymphocytes % (auto) 29.5 %; Mean Corpuscular Hemoglobin 32.6 pg (25.0-34.0); Mean Corpuscular Hgb Conc 34.1 g/dL (32.0-36.0); Mean Corpuscular Volume 95.5 fL (80.0-100.0); Mean Platelet Volume 9.5 fL (9.4-12.4); Monocytes # (auto) 0.59 K/uL (0.24-0.82); Monocytes % (auto) 8.1 %; Neutrophils % (auto) 56.2 %; Platelet Count 303 K/uL (130-400); RDW Coefficient of Variation 13.8 % (11.5-14.5); RDW Standard Deviation 48.6 fL (36.4-46.3); Red Blood Count 4.42 M/uL (4.63-6.08); White Blood Count 7.29 K/ul (4.8-10.8)
[2022-09-22 11:19] LABS: BUN Creatinine Ratio 22.4 (10-20); Calcium 9.6 mg/dl (8.5-10.1); Creatinine Clr Calc Pharmacy 55.1 ml/min; Est GFR (African American) 95.1 ml/min; Potassium 3.5 mmol/L (3.5-5.1)
[2022-09-22] MEDS: OLANZapine ZYDIS 5 MG ORALLY DIS. TAB PO PRN (17:14)
--- NOTE | 2022-09-22 17:44 | Hospitalist Progress Note ---
Date of Service September 22, 2022 Assessment & Plan (1) Agitation due to dementia: (2) Dementia with behavioral disturbance: (3) CAD (coronary artery disease): (4) Carotid stenosis: (5) COPD (chronic obstructive pulmonary disease): (6) Sleep apnea: (7) HTN (hypertension): (8) GERD (gastroesophageal reflux disease): (9) Barretts esophagus: Plan: Patient is an 87 yr male with H/O dementia with behavioral disturbance, HTN, dyslipidemia, CAD s/p stent, COPD, sleep apnea on 2L oxygen HS, GERD, Steward's esophagus, carotid stenosis who presented 09/11 with worsening agitation and hallucinations. Dementia with behavioral disturbance Agitation due to dementia Recurrent Falls Manubrium Fracture and Right 6th rib fracture --CT Head:No acute intracranial hemorrhage, no evidence of acute territorial infarction or other acute intracranial disease process. Patient was initially on Seroquel>> transition to Zyprexa Appreciate psychiatry input Continue [facility] Needs SNF as able Dysphagia Aspiration precautions Speech therapy consulted CXR pending Abnormal CT Right upper lobe density. Pleural plaques --CT:Nodular densities on chest radiograph of September 11, 2022 were due to pleural plaques. 1.4 cm irregular subpleural density within the right upper lobe. Although this could reflect a resolving infectious process or scarring, a neoplasm cannot be excluded. Short-term follow-up chest CT in 2 months is recomm ended. Acute appearing nondisplaced manubrial fracture. Healing right sixth rib fracture. No pneumothorax. 1.5 cm subpleural cystic focus within the left lower lobe. This is probably benign but can be assessed on follow-up chest CT. -- Needs repeat CT as outpatient to assess resolution -- May need follow-up with pulmonology as outpatient Acute urinary retention S/P [facility] on 09/15 Voiding trial as able COPD JUAN Continue Anoro Ellipta inhaler, 2L supplemental O2 HS Recent fall with Right flank pain lidocaine, Tylenol PRN CAD (coronary artery disease) S/P Stent EKG with bifascicular block Continue ASA, statin, atenolol HTN Continue amlodipine, lasix, atenolol Dyslipidemia Continue statin DVT Px: SQ heparin Code status: DNR/DNI (10) Falls: Admission and Anticipated Discharge Date Admission Date: September 11, 2022 Subjective Patient is seen and examined at bedside No distress during my encounter Sitter at bedside Noted to have dysphagia by respiratory therapy aide of Systems Review of Systems: Unobtainable due to cognitive status Physical Exam Physical Exam: Physical Exam: Vitals signs as noted above General Appearance:Moderately built and nourished, no apparent distress Head: normocephalic, Atraumatic Eyes: normal inspection, EOMI Neck: supple, Trachea midline Respiratory/Chest: Normal breath sounds, CTA, No accessory muscle use Cardiovascular: S1, S2, No murmur Abdomen/GI:Soft, Non tender, Bowel sounds present Extremities/Musculoskeletal:normal inspection, no edema Neurologic/Psych:grossly no focal neurological deficits , +Dementia Skin: normal color, warm Results & Data Results & Data ([facility]) Vital Signs (Past 12 Hours) Vital Signs Temp Pulse Pulse Resp BP Pulse Ox O2 Del Method 09/22/22 15:31 36.7 C 72 19 145/71 H 93 Nasal Cannula 09/22/22 07:35 Room Air 09/22/22 07:16 36.6 C 68 16 147/66 H 91 Room Air O2 Flow Rate 09/22/22 15:31 3 09/22/22 07:35 09/22/22 07:16 Laboratory Results Short CBC 09/22/22 Range/Units 10:34 WBC 7.29 (4.8-10.8) K/ul Hgb 14.4 (14.0-18.0) g/dl Hct 42.2 (40.1-51.0) % Plt Count 303 (130-400) K/uL BMP 09/22/22 10:34 Sodium 146 H Potassium 3.5 Chloride 108 H Carbon Dioxide 33 H BUN 17 Creatinine 0.76 Glucose 108 H Calcium 9.6 (1) Falls Encounter type: initial encounter Qualified Code(s): W19.XXXA - Unspecified fall, initial encounter
[2022-09-22] MEDS ORDERED: ACETAMINOPHEN 325 MG TAB PO PRN (17:51)
[2022-09-22] MEDS: OLANZAPINE 2.5 MG TAB PO SCH (20:22)
[2022-09-22] MEDS: ATORVASTATIN 40 MG TAB PO SCH (20:23)
--- NOTE | 2022-09-22 20:25 | XRay Report ---
XR chest 1V portable HISTORY: 87 years-old Male Hypoxia acute hypoxia COMPARISON: Chest CT 09/19/2022 TECHNIQUE: AP view of the chest FINDINGS: Cardiomediastinal and hilar silhouettes are unchanged. Atherosclerosis of the aorta. Emphysema with c alcified pleural plaques redemonstrated. Chronic interstitial coarsening. No pneumothorax, pleural ef fusion, airspace consolidation or overt pulmonary edema. Degenerative changes of the shoulders and sp ine. 1.4 cm irregular opacity of the right upper lobe. Degenerative changes of the shoulders and spin e. Subacute lateral right sixth rib fracture again noted. IMPRESSION: 1. Chronic interstitial coarsening without acute process identified. 2. Please refer to the chest CT dated 09/19/2022 for additional findings. ACT 112: Negative or not required by law. The above report was generated using voice recognition software. It may contain grammatical, syntax o r spelling errors. Electronically signed by: Jc Nguyen M.D. 09/22/2022 8:22 PM
[2022-09-23] MEDS: HEPARIN SOD 5,000 UNIT/0.5 ML VIAL SQ SCH ×3 (05:38→21:00)
[2022-09-23] MEDS ORDERED: SODIUM CHLORIDE 0.45 % 1,000 ML IV ONE (06:02)
[2022-09-23 07:23] LABS: Calcium 9.5 mg/dl (8.5-10.1); Creatinine Clr Calc Pharmacy 56.6 ml/min; Est GFR (African American) 96.1 ml/min; Est GFR (Non-African American) 82.9 ml/min; Potassium 3.5 mmol/L (3.5-5.1)
[2022-09-23] MEDS: MEMANTINE HCL 10 MG TAB PO SCH ×2 (08:25→20:43)
[2022-09-23] MEDS: PANTOprazole 40 MG TAB PO SCH ×2 (08:25→20:42)
[2022-09-23] MEDS: CEROVITE ADV FORMULA TAB PO SCH (08:25)
[2022-09-23] MEDS: FUROSEMIDE 20 MG TAB PO SCH (08:26)
[2022-09-23] MEDS: GALANTAMINE HYDROBROMIDE 8 MG CAPER PO SCH (08:26)
[2022-09-23] MEDS: ATENOLOL 25 MG TABLET PO SCH (08:27)
[2022-09-23] MEDS: CETIRIZINE HCL 10 MG TABLET PO SCH (08:27)
[2022-09-23] MEDS: amLODIPine BESYLATE 5 MG TAB PO SCH (08:28)
[2022-09-23] MEDS: ASPIRIN 81 MG ECTAB PO SCH (08:28)
[2022-09-23] MEDS: LIDOCAINE 5% 1 PATCH TD SCH (08:29)
[2022-09-23] MEDS: UMECLIDINIUM/VILANTEROL 62.5/25MCG 7 PUFFS/INHALER INH SCH ×2 (08:30→10:53)
[2022-09-23 09:51] LABS: Appearance Urine Clear (Clear); Bacteria Urine Automated Negative (Negative); Bilirubin Urine Negative (Negative); Blood Urine 1+ (Negative); Color Urine Yellow; Epithelial Cell Urine Auto >30 /lpf (0-5); Glucose Urine UA Negative (Negative); Ketones Urine 2+ (Negative); Leukocyte Esterase Urine 2+ (Negative); Nitrite Urine Negative (Negative); Protein Urine 1+ (Negative); Specific Gravity Urine 1.021 (1.000-1.030); Urobilinogen Urine Negative (Negative); WBC Urine Automated >30 /hpf (0-5); pH Urine 6.5 (4.5-7.5)
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
[2022-09-23 10:35] LABS: Renal Epithelial Cells Urine 0-5 /lpf (0-5)
--- NOTE | 2022-09-23 12:34 | Psychiatric Progress Note ---
Date of Service September 23, 2022 Impression / Recommendations Impression 87 yo male with hx of dementia, increased agitation upon admission despite Seroquel 50 mg BID due to suspected combination of progressive cognitive change, sundowning, and hypoxia. Diagnostically could be Lewy Body dementia given periods of waxing waning in terms of skills/cognition from day to day and consistent visual hallucinations. Likely also delirium component which could be contributing to alteration in level of alertness. Given this possibility continue to be cautious with antipsychotics given likelihood of increased sensitivity. Continue cross-taper from seroquel to zyprexa. Reviewed with his partner. Black box warning for all cause mortality but risk/benefit profile favors treatment given ongoing agitation preventing safe disposition. 09/23/22: sleep/wake cycle improved today, still with lability and periods of irritability/agitated likely due to combination of delirium and advanced dementia. No evidence for EPS or TD today. Will continue with zyprexa 2.5mg po qhs. If continues to utilize zyprexa ODT prn can increase qhs scheduled dose to 5mg qhs given improvement in alertness during the day. (1) Dementia with behavioral disturbance: Plan 09/23/22: responding well to zyprexa 2.5mg po qhs with additional 2.5mg po q6h prn. Interval History Identifying Information 87 yo male from [place], dx dementia 4 years ago, admit medically as increasingly agitated/hypoxic/unable to be maintained at home. initial consult completed 09/12/22 Chief Complaint "so so". Review of Systems Notes slept overnight, ate breakfast Subjective Subjective Patient was seen & assessed and interval progress reviewed. Got zyprexa ODT 2.5mg at ~5pm and then accepted po zyprexa 2.5 at qhs. Slept overnight and is awake and alert today with his partner at bedside and 1-on-1 present. He is talking but noted to have mood lability with brief periods of agitation and then pleasant. Ate some breakfast this morning. Significant language deficits/expressive aphasia/word salad making it difficult to have any type of prolonged conversation. Appeared to be possibly responding to a visual hallucination briefly at one point. Physical Exam Psychiatric Apperance: appropriately dressed Eye Contact: + fair eye contact Motor Behavior: no abnormal motor movements; n EPS Speech: + abnormal rate/rhythm/volume of speech (dysarthria, word salad) Affect: + labile affect Mood: + irritable mood Thought Process: + looseness of associations and + word salad Thought Content: + preoccupation Hallucinations: + visual hallucinations (possible brief response to VH); no auditory hallucinations Cognition: + recent memory not intact, + attention not intact and + language not intact Insight: + severely impaired insight Judgement: + severely impaired judgement Vital Signs (Past 24 Hours) Last Vital Signs Temp 36.1 C L 09/23/22 07:11 Pulse 88 09/23/22 07:11 Resp 18 09/23/22 07:11 BP 182/84 H 09/23/22 07:11 Pulse Ox 90 09/23/22 07:11 O2 Del Method 09/23/22 08:15 O2 Flow Rate 3 09/23/22 07:11 Results & Data ([facility]) Laboratory Results Laboratory Results - last 24 hr 09/23/22 09/23/22 06:42 09:15 Sodium 146 H Potassium 3.5 Chloride 109 H Carbon Dioxide 28 Anion Gap 9 BUN 17 Creatinine 0.74 Est Cr Clr Drug Dosing 56.6 Est GFR ( Amer) 96.1 Est GFR (Non-Af Amer) 82.9 BUN/Creatinine Ratio 23.0 H Glucose 101 H Calcium 9.5 Urine Color Yellow Urine Appearance Clear Urine pH 6.5 Ur Specific [place] 1.021 Urine Protein 1+ H Urine Glucose (UA) Negative Urine Ketones 2+ H Urine Blood 1+ H Urine Nitrite Negative Urine Bilirubin Negative Urine Urobilinogen Negative Ur Leukocyte Esterase 2+ H Urine WBC (Auto) >30 H Urine RBC (Auto) 5-10 H U Hyaline Cast (Auto) 10-30 H U Epithel Cells (Auto) >30 H Urine Bacteria (Auto) Negative Ur Renal Epithelial Cell 0-5 Current Inpatient Medications Current Inpatient Medications: Current Inpatient Medications Acetaminophen (Acetaminophen 325 Mg Tab) 650 mg PO Q8H PRN PRN Reason: Pain Stop: 10/21/22 21:59 Amlodipine Besylate (Amlodipine Besylate 5 Mg Tab) 5 mg PO DAILY SADA Stop: 10/12/22 08:59 Last Admin: 09/23/22 08:28 Dose: 5 mg Aspirin (Aspirin 81 Mg Ectab) 81 mg PO DAILY SADA Stop: 10/12/22 08:59 Last Admin: 09/23/22 08:28 Dose: 81 mg Atenolol (Atenolol 25 Mg Tablet) 12.5 mg PO DAILY SADA Stop: 10/12/22 08:59 Last Admin: 09/23/22 08:27 Dose: 12.5 mg Atorvastatin Calcium (Atorvastatin 40 Mg Tab) 80 mg PO HS SADA Stop: 10/11/22 20:59 Last Admin: 09/22/22 20:23 Dose: 80 mg Cetirizine HCl (Cetirizine Hcl 10 Mg Tablet) 10 mg PO DAILY SADA Stop: 10/12/22 08:59 Last Admin: 09/23/22 08:27 Dose: 10 mg Furosemide (Furosemide 20 Mg Tab) 20 mg PO DAILY SADA Stop: 10/12/22 08:59 Last Admin: 09/23/22 08:26 Dose: 20 mg Galantamine Hydrobromide (Galantamine Hydrobromide 8 Mg Caper) 24 mg PO DAILY SADA Stop: 10/12/22 08:59 Last Admin: 09/23/22 08:26 Dose: 24 mg Heparin Sodium (Porcine) (Heparin Sod 5,000 Unit/0.5 Ml Vial) 5,000 units SQ Q8 SADA Stop: 10/11/22 21:59 Last Admin: 09/23/22 05:38 Dose: 5,000 units Sodium Chloride (1/2 Nss) 1,000 mls @ 75 mls/hr IV .[id number] ONE Stop: 09/23/22 19:21 Last Admin: 09/23/22 06:08 Dose: 75 mls/hr Lidocaine (Lidocaine 5% 1 Patch) 1 patch TD QAM SADA Stop: 10/11/22 17:29 Last Admin: 09/23/22 08:29 Dose: 1 patch Memantine (Memantine Hcl 10 Mg Tab) 10 mg PO BID SADA Stop: 10/11/22 20:59 Last Admin: 09/23/22 08:25 Dose: 10 mg Miscellaneous (Remove Lidoderm Patch) 1 each N/A DAILY@2100 SADA Stop: 10/11/22 20:59 Last Admin: 09/22/22 20:23 Dose: Not Given Multivitamins/Minerals (Cerovite Adv Formula Tab) 1 tab PO DAILY SADA Stop: 10/12/22 08:59 Last Admin: 09/23/22 08:25 Dose: 1 tab Olanzapine (Olanzapine 10 Mg/2.1 Ml Sdv) 2.5 mg IM Q4H PRN PRN Reason: Anxiety/Agitation Stop: 10/11/22 23:14 Last Admin: 09/22/22 02:18 Dose: 2.5 mg Olanzapine (Olanzapine Zydis 5 Mg Orally Dis. Tab) 2.5 mg PO Q6 PRN PRN Reason: Anxiety/Agitation Stop: 10/14/22 11:59 Last Admin: 09/22/22 17:14 Dose: 2.5 mg Olanzapine (Olanzapine 2.5 Mg Tab) 2.5 mg PO HS SADA Stop: 10/19/22 20:59 Last Admin: 09/22/22 20:22 Dose: 2.5 mg Ondansetron HCl (Ondansetron Inj 2 Mg/Ml 2 Ml Vial) 4 mg IV Q6H PRN PRN Reason: Nausea Stop: 10/11/22 18:22 Pantoprazole Sodium (Pantoprazole 40 Mg Tab) 40 mg PO BID [facility]; Protocol Stop: 10/11/22 20:59 Last Admin: 09/23/22 08:25 Dose: 40 mg Polyethylene Glycol (Polyethylene (Miralax) 17 Gm Pack) 17 gm PO DAILY PRN PRN Reason: Constipation Stop: 10/11/22 18:22 Umeclidinium/Vilanterol (Umeclidinium/Vilanterol 62.5/25mcg 7 Puffs/Inhaler) 1 puffs INH DAILY SADA Stop: 10/12/22 08:59 Last Admin: 09/23/22 10:53 Dose: Not Given
--- NOTE | 2022-09-23 13:47 | Hospitalist Progress Note ---
Date of Service September 23, 2022 Assessment & Plan (1) Agitation due to dementia: (2) Dementia with behavioral disturbance: (3) CAD (coronary artery disease): (4) Carotid stenosis: (5) COPD (chronic obstructive pulmonary disease): (6) Sleep apnea: (7) HTN (hypertension): (8) GERD (gastroesophageal reflux disease): (9) Barretts esophagus: Plan: Patient is an 87 yr male with H/O dementia with behavioral disturbance, HTN, dyslipidemia, CAD s/p stent, COPD, sleep apnea on 2L oxygen HS, GERD, Steward's esophagus, carotid stenosis who presented 09/11 with worsening agitation and hallucinations. Dementia with behavioral disturbance Agitation due to dementia Recurrent Falls Manubrium Fracture and Right 6th rib fracture --CT Head:No acute intracranial hemorrhage, no evidence of acute territorial infarction or other acute intracranial disease process. Patient was initially on Seroquel>> transition to Zyprexa Appreciate psychiatry input Continue Namenda Needs SNF as able Goal as comfort, No aggressive measures Appreciate palliative care Input Dysphagia Aspiration precautions Appreciate Speech therapy eval Minced and moist diet Abnormal CT Right upper lobe density. Pleural plaques --CT:Nodular densities on chest radiograph of September 11, 2022 were due to pleural plaques. 1.4 cm irregular subpleural density within the right upper lobe. Although this could reflect a resolving infectious process or scarring, a neoplasm cannot be excluded. Short-term follow-up chest CT in 2 months is recommended. Acute appearing nondisplaced manubrial fracture. Healing right sixth rib fracture. No pneumothorax. 1.5 cm subpleural cystic focus within the left lower lobe. This is probably benign but can be assessed on follow-up chest CT. -- Needs repeat CT as outpatient to assess resolution -- May need follow-up with pulmonology as outpatient Acute urinary retention S/P [facility] on 09/15 Voiding trial as able COPD JUAN Continue Anoro Ellipta inhaler, 2L supplemental O2 HS Recent fall with Right flank pain lidocaine, Tylenol PRN CAD (coronary artery disease) S/P Stent EKG with bifascicular block Continue ASA, statin, atenolol HTN Continue amlodipine, lasix, atenolol Dyslipidemia Continue statin DVT Px: SQ heparin Code status: DNR/DNI (10) Falls: Admission and Anticipated Discharge Date Admission Date: September 11, 2022 Subjective Patient is seen and examined at bedside Less agitated this morning Alert, awake today Poor oral intake Took his medications per staff Poor historian due to dementia Review of Systems Review of Systems: Unobtainable due to cognitive status Physical Exam Physical Exam: Physical Exam: Vitals signs as noted above General Appearance:Moderately built and nourished, no apparent distress Head: normocephalic, Atraumatic Eyes: normal inspection, EOMI Neck: supple, Trachea midline Respiratory/Chest: Normal breath sounds, CTA, No accessory muscle use Cardiovascular: S1, S2, No murmur Abdomen/GI:Soft, Non tender, Bowel sounds present Extremities/Musculoskeletal:normal inspection, no edema Neurologic/Psych:grossly no focal neurological deficits , +Dementia Skin: normal color, warm Results & Data Results & Data ([facility]) Vital Signs (Past 12 Hours) Vital Signs Temp Pulse Pulse Resp BP BP Pulse Ox 09/23/22 08:15 09/23/22 07:11 36.1 C L 88 18 182/84 H 90 09/23/22 01:56 37.0 C 84 18 158/82 H 91 O2 Del Method O2 Flow Rate 09/23/22 08:15 Room Air 09/23/22 07:11 Nasal Cannula 3 09/23/22 01:56 Nasal Cannula 3 Laboratory Results BMP 09/23/22 06:42 Sodium 146 H Potassium 3.5 Chloride 109 H Carbon Dioxide 28 BUN 17 Creatinine 0.74 Glucose 101 H Calcium 9.5 Urine 09/23/22 Range/Units 09:15 Urine Color Yellow Urine Appearance Clear (Clear) Urine pH 6.5 (4.5-7.5) Ur Specific [place] 1.021 (1.000-1.030) Urine Protein 1+ H (Negative) Urine Glucose (UA) Negative (Negative) (1) Falls Encounter type: initial encounter Qualified Code(s): W19.XXXA - Unspecified fall, initial encounter
[2022-09-23] MEDS ORDERED: OLANZAPINE 2.5 MG TAB PO PRN (16:35)
[2022-09-23] MEDS: OLANZAPINE 2.5 MG TAB PO SCH (20:42)
[2022-09-23] MEDS: ATORVASTATIN 40 MG TAB PO SCH (20:42)
[2022-09-24] MEDS: HEPARIN SOD 5,000 UNIT/0.5 ML VIAL SQ SCH (06:11)
[2022-09-24] MEDS: CEROVITE ADV FORMULA TAB PO SCH (07:42)
[2022-09-24] MEDS: ASPIRIN 81 MG ECTAB PO SCH (07:42)
[2022-09-24] MEDS: GALANTAMINE HYDROBROMIDE 8 MG CAPER PO SCH (07:43)
[2022-09-24] MEDS: PANTOprazole 40 MG TAB PO SCH ×2 (07:43→20:42)
[2022-09-24] MEDS: amLODIPine BESYLATE 5 MG TAB PO SCH (07:43)
[2022-09-24] MEDS: MEMANTINE HCL 10 MG TAB PO SCH ×2 (07:43→20:42)
[2022-09-24] MEDS: LIDOCAINE 5% 1 PATCH TD SCH (07:44)
[2022-09-24] MEDS: UMECLIDINIUM/VILANTEROL 62.5/25MCG 7 PUFFS/INHALER INH SCH (07:44)
[2022-09-24] MEDS: CETIRIZINE HCL 10 MG TABLET PO SCH (07:44)
[2022-09-24] MEDS: FUROSEMIDE 20 MG TAB PO SCH (07:44)
[2022-09-24] MEDS: ATENOLOL 25 MG TABLET PO SCH (07:58)
[2022-09-24] MEDS: OLANZapine 10 MG/2.1 ML SDV IM PRN ×2 (10:07→21:21)
[2022-09-24] MEDS ORDERED: GLYCOPYRROLATE 0.2 MG/ML VIAL IV PRN (12:33)
[2022-09-24] MEDS ORDERED: haloperidoL 1 MG TAB PO PRN (12:33)
[2022-09-24] MEDS ORDERED: MoRPHine SULFATE 2 MG/ML CARP IV PRN (12:33)
[2022-09-24] MEDS ORDERED: MoRPHine SULFATE 5 MG/0.25 ML UDP PO PRN (12:33)
--- NOTE | 2022-09-24 12:40 | Palliative Care Progress Note ---
Date of Service September 24, 2022 Assessment & Plan (1) Palliative care encounter: (2) Neuropsychiatric disorder: (3) Dementia with behavioral disturbance: Plan Per d/w yesterday, pt is comfort care with dispo plan to dc to SNF with comfort care and hospice when placement is found/CM is following. This is largely dependent on his sitter status being stopped when behav improves. He is doing better with Zyprexa. I have added comfort care orders to be given on a prn basis. We will follow peripherally given no acute IP pall med needs. Sarah Dorsey DNP Clinical Director, Palliative Medicine Admission and Anticipated Discharge Date Admission Date: September 11, 2022 Subjective behav seems calmer speech still garbled unable to follow commands will shake hand when offered but appears confused Review of Systems Review of Systems: Unobtainable due to cognitive status Results & Data ([facility]) Vital Signs (Past 12 Hours) Vital Signs Temp Pulse Resp BP Pulse Ox 09/24/22 07:35 36.7 C 59 L 20 150/52 H 90 PG Care Time/CCT Total # of Minutes Spent Total Time Spent: 20 Total Time Spent with Patient: Total time spent is greater than 50% in coordination of care (as documented) at patient's floor/unit and/or counseling patient: Coding [place] [address] Subseq Hosp Care Lvl 2 Patient Type Established History Expanded Problem Focused Exam Problem Focused Medical Decision Making Moderate Complexity Diagnoses Palliative care encounter Z51.5 Neuropsychiatric disorder F48.9 Dementia with behavioral disturbance F03.918
--- NOTE | 2022-09-24 15:22 | Hospitalist Progress Note ---
Date of Service September 24, 2022 Assessment & Plan (1) Agitation due to dementia: (2) Dementia with behavioral disturbance: (3) CAD (coronary artery disease): (4) Carotid stenosis: (5) COPD (chronic obstructive pulmonary disease): (6) Sleep apnea: (7) HTN (hypertension): (8) GERD (gastroesophageal reflux disease): (9) Barretts esophagus: Plan: Patient is an 87 yr male with H/O dementia with behavioral disturbance, HTN, dyslipidemia, CAD s/p stent, COPD, sleep apnea on 2L oxygen HS, GERD, Steward's esophagus, carotid stenosis who presented 09/11 with worsening agitation and hallucinations. Dementia with behavioral disturbance Agitation due to dementia Recurrent Falls Manubrium Fracture and Right 6th rib fracture --CT Head:No acute intracranial hemorrhage, no evidence of acute territorial infarction or other acute intracranial disease process. Patient was initially on Seroquel>> transition to Zyprexa Appreciate psychiatry input Continue [facility] Needs SNF as able Goal is comfort, No aggressive measures Appreciate palliative care Input Continue current management Dysphagia Aspiration precautions Appreciate Speech therapy eval Minced and moist diet Abnormal CT Right upper lobe density. Pleural plaques --CT:Nodular densities on chest radiograph of September 11, 2022 were due to pleural plaques. 1.4 cm irregular subpleural density within the right upper lobe. Although this could reflect a resolving infectious process or scarring, a neoplasm cannot be excluded. Short-term follow-up chest CT in 2 months is recommended. Acute appearing nondisplaced manubrial fracture. Healing right sixth rib fracture. No pneumothorax. 1.5 cm subpleural cystic focus within the left lower lobe. This is probably benign but can be assessed on follow-up chest CT. -- Needs repeat CT as outpatient to assess resolution -- May need follow-up with pulmonology as outpatient Acute urinary retention S/P [facility] on 09/15 Voiding trial as able COPD JUAN Continue Anoro Ellipta inhaler, 2L supplemental O2 HS Recent fall with Right flank pain lidocaine, Tylenol PRN CAD (coronary artery disease) S/P Stent EKG with bifascicular block Continue ASA, statin, atenolol HTN Continue amlodipine, lasix, atenolol Dyslipidemia Continue statin DVT Px: SQ heparin-held as more distressed/combative Teds/SCDs Code status: DNR/DNI (10) Falls: Admission and Anticipated Discharge Date Admission Date: September 11, 2022 Subjective Patient is seen and examined at bedside Confused and intermittently combative Unable to provide any history Sitter at bedside Review of Systems Review of Systems: Unobtainable due to cognitive status Physical Exam Physical Exam: Physical Exam: Vitals signs as noted above General Appearance:Moderately built and nourished, no apparent distress Head: normocephalic, Atraumatic Eyes: normal inspection, EOMI Neck: supple, Trachea midline Respiratory/Chest: Normal breath sounds, CTA, No accessory muscle use Cardiovascular: S1, S2, No murmur Abdomen/GI:Soft, Non tender, Bowel sounds present Extremities/Musculoskeletal:normal inspection, no edema Neurologic/Psych:grossly no focal neurological deficits , +Dementia Skin: normal color, warm Results & Data Results & [facility] ([facility]) Vital Signs (Past 12 Hours) Vital Signs Temp Pulse Resp BP Pulse Ox O2 Del Method 09/24/22 14:50 36.6 C 63 20 148/58 H 95 Room Air 09/24/22 07:35 36.7 C 59 L 20 150/52 H 90 (1) Falls Encounter type: initial encounter Qualified Code(s): W19.XXXA - Unspecified fall, initial encounter
[2022-09-24] MEDS: OLANZAPINE 2.5 MG TAB PO SCH (20:41)
[2022-09-24] MEDS: ATORVASTATIN 40 MG TAB PO SCH (20:41)
--- NOTE | 2022-09-25 09:50 | Communication Note ---
Date of Service: September 25, 2022 Interim progress reviewed, patient is continuing to require at least 1 dose of prn Zyprexa 2.5 mg daily, yesterday 2 doses IM. No clear pattern as later am and pm. Had excessive sedation with Seroquel previously, will increase hs dose of Zyprexa 3.75 mg with plan for further titration if necessary as current behaviors/requirements a barrier to safe placement of patient.
[2022-09-25] MEDS: FUROSEMIDE 20 MG TAB PO SCH ×2 (10:04→10:54)
[2022-09-25] MEDS: amLODIPine BESYLATE 5 MG TAB PO SCH ×2 (10:04→10:54)
[2022-09-25] MEDS: CETIRIZINE HCL 10 MG TABLET PO SCH ×2 (10:04→10:53)
[2022-09-25] MEDS: ATENOLOL 25 MG TABLET PO SCH ×2 (10:04→10:54)
[2022-09-25] MEDS: ASPIRIN 81 MG ECTAB PO SCH ×2 (10:04→10:54)
[2022-09-25] MEDS: CEROVITE ADV FORMULA TAB PO SCH ×2 (10:05→10:54)
[2022-09-25] MEDS: MEMANTINE HCL 10 MG TAB PO SCH ×3 (10:05→20:43)
[2022-09-25] MEDS: UMECLIDINIUM/VILANTEROL 62.5/25MCG 7 PUFFS/INHALER INH SCH ×2 (10:05→11:08)
[2022-09-25] MEDS: PANTOprazole 40 MG TAB PO SCH ×3 (10:05→20:43)
[2022-09-25] MEDS: LIDOCAINE 5% 1 PATCH TD SCH ×2 (10:05→11:08)
[2022-09-25] MEDS: GALANTAMINE HYDROBROMIDE 8 MG CAPER PO SCH ×2 (10:05→10:54)
--- NOTE | 2022-09-25 14:23 | Hospitalist Progress Note ---
Date of Service September 25, 2022 Assessment & Plan (1) Agitation due to dementia: (2) Dementia with behavioral disturbance: (3) CAD (coronary artery disease): (4) Carotid stenosis: (5) COPD (chronic obstructive pulmonary disease): (6) Sleep apnea: (7) HTN (hypertension): (8) GERD (gastroesophageal reflux disease): (9) Barretts esophagus: Plan: Patient is an 87 yr male with H/O dementia with behavioral disturbance, HTN, dyslipidemia, CAD s/p stent, COPD, sleep apnea on 2L oxygen HS, GERD, Steward's esophagus, carotid stenosis who presented 09/11 with worsening agitation and hallucinations. Dementia with behavioral disturbance Agitation due to dementia Recurrent [place] Manubrium Fracture and Right 6th rib fracture --CT Head:No acute intracranial hemorrhage, no evidence of acute territorial infarction or other acute intracranial disease process. Patient was initially on Seroquel>> transition to Zyprexa Appreciate psychiatry input Continue [facility]eds [facility]F as able Goal is comfort, No aggressive measures Appreciate palliative care Input Waiting for placement Dysphagia Aspiration precautions Appreciate Speech therapy eval Minced and moist diet Poor oral intake today Abnormal CT Right upper lobe density. Pleural plaques --CT:Nodular densities on chest radiograph of September 11, 2022 were due to pleural plaques. 1.4 cm irregular subpleural density within the right upper lobe. Although this could reflect a resolving infectious process or scarring, a neoplasm cannot be excluded. Short-term follow-up chest CT in 2 months is recommended. Acute appearing nondisplaced manubrial fracture. Healing right sixth rib fracture. No pneumothorax. 1.5 cm subpleural cystic focus within the left lower lobe. This is probably benign but can be assessed on follow-up chest CT. -- Needs repeat CT as outpatient to assess resolution -- May need follow-up with pulmonology as outpatient Acute urinary retention S[facility] on 09/15 Voiding trial as able COPD JUAN Continue Anoro Ellipta inhaler, 2L supplemental O2 HS Recent fall with Right flank pain lidocaine, Tylenol PRN CAD (coronary artery disease) S/P Stent EKG with bifascicular block Continue ASA, statin, atenolol HTN Continue amlodipine, lasix, atenolol Dyslipidemia Continue statin DVT Px: SQ heparin-held as more distressed/combative Teds/SCDs Code status: DNR/DNI (10) Falls: Admission and Anticipated Discharge Date Admission Date: September 11, 2022 Subjective Patient is seen and examined at bedside Pleasantly Confused No agitation during my encounter Sitter at bedside Unable to provide any history Waiting for placement Review of Systems Review of Systems: Unobtainable due to cognitive status Physical Exam Physical Exam: Physical Exam: Vitals signs as noted above General Appearance:Moderately built and nourished, no apparent distress, ill appearing Head: normocephalic, Atraumatic Eyes: normal inspection, EOMI Neck: supple, Trachea midline Respiratory/Chest: Normal breath sounds, CTA, No accessory muscle use Cardiovascular: S1, S2, No murmur Abdomen/GI:Soft, Non tender, Bowel sounds present Extremities/Musculoskeletal:normal inspection, no edema Neurologic/Psych:grossly no focal neurological deficits , +Dementia Skin: normal color, warm Results & Data Results & Data ([facility]) Vital Signs (Past 12 Hours) Vital Signs O2 Del Method 09/25/22 11:00 Room Air (1) Falls Encounter type: initial encounter Qualified Code(s): W19.XXXA - Unspecified fall, initial encounter
[2022-09-25] MEDS: ATORVASTATIN 40 MG TAB PO SCH (20:43)
[2022-09-25] MEDS: OLANZAPINE 2.5 MG TAB PO SCH (20:44)
[2022-09-26] MEDS: ATENOLOL 25 MG TABLET PO SCH (12:13)
[2022-09-26] MEDS: ASPIRIN 81 MG ECTAB PO SCH (12:13)
[2022-09-26] MEDS: amLODIPine BESYLATE 5 MG TAB PO SCH (12:13)
[2022-09-26] MEDS: CETIRIZINE HCL 10 MG TABLET PO SCH (12:13)
[2022-09-26] MEDS: PANTOprazole 40 MG TAB PO SCH ×3 (12:14→20:08)
[2022-09-26] MEDS: LIDOCAINE 5% 1 PATCH TD SCH (12:14)
[2022-09-26] MEDS: MEMANTINE HCL 10 MG TAB PO SCH ×3 (12:14→21:24)
[2022-09-26] MEDS: UMECLIDINIUM/VILANTEROL 62.5/25MCG 7 PUFFS/INHALER INH SCH (12:14)
[2022-09-26] MEDS: FUROSEMIDE 20 MG TAB PO SCH (12:14)
[2022-09-26] MEDS: GALANTAMINE HYDROBROMIDE 8 MG CAPER PO SCH (12:14)
[2022-09-26] MEDS: CEROVITE ADV FORMULA TAB PO SCH (12:14)
--- NOTE | 2022-09-26 14:04 | Hospitalist Progress Note ---
Date of Service September 26, 2022 Assessment & Plan (1) Agitation due to dementia: (2) Dementia with behavioral disturbance: (3) CAD (coronary artery disease): (4) Carotid stenosis: (5) COPD (chronic obstructive pulmonary disease): (6) Sleep apnea: (7) HTN (hypertension): (8) GERD (gastroesophageal reflux disease): (9) Barretts esophagus: Plan: Patient is an 87 yr male with H/O dementia with behavioral disturbance, HTN, dyslipidemia, CAD s/p stent, COPD, sleep apnea on 2L oxygen HS, GERD, Steward's esophagus, carotid stenosis who presented 09/11 with worsening agitation and hallucinations. Dementia with behavioral disturbance Agitation due to dementia Recurrent [place] Manubrium Fracture and Right 6th rib fracture --CT Head:No acute intracranial hemorrhage, no evidence of acute territorial infarction or other acute intracranial disease process. Patient was initially on Seroquel>> transition to Zyprexa Appreciate psychiatry input Continue [facility] Needs SNF as able Goal is comfort, No aggressive measures Appreciate palliative care Input Waiting for placement Clinically seemed to be deteriorating Plan to transition to Hospice upon discharge Dysphagia Aspiration precautions Appreciate Speech therapy eval Minced and moist diet Abnormal CT Right upper lobe density. Pleural plaques --CT:Nodular densities on chest radiograph of September 11, 2022 were due to pleural plaques. 1.4 cm irregular subpleural density within the right upper lobe. Although this could reflect a resolving infectious process or scarring, a neoplasm cannot be excluded. Short-term follow-up chest CT in 2 months is recomm ended. Acute appearing nondisplaced manubrial fracture. Healing right sixth rib fracture. No pneumothorax. 1.5 cm subpleural cystic focus within the left lower lobe. This is probably benign but can be assessed on follow-up chest CT. -- Needs repeat CT as outpatient to assess resolution -- May need follow-up with pulmonology as outpatient Acute urinary retention S[facility] on 09/15 Voiding trial as able COPD JUAN Continue Anoro Ellipta inhaler, 2L supplemental O2 HS Recent fall with Right flank pain lidocaine, Tylenol PRN CAD (coronary artery disease) S/P Stent EKG with bifascicular block Continue ASA, statin, atenolol HTN Continue amlodipine, lasix, atenolol Dyslipidemia Continue statin DVT Px: SQ heparin-held as more distressed/combative Teds/SCDs Code status: DNR/DNI (10) Falls: Admission and Anticipated Discharge Date Admission Date: September 11, 2022 Subjective Patient is seen and examined at bedside Lethargic during my encounter Did not have break fast Sitter at bedside Unable to provide any history Review of Systems Review of Systems: Unobtainable due to cognitive status Physical Exam Physical Exam: Physical Exam: Vitals signs as noted above General Appearance:Moderately built and nourished, no apparent distress, ill appearing Head: normocephalic, Atraumatic Eyes: normal inspection, EOMI Neck: supple, Trachea midline Respiratory/Chest: Normal breath sounds, CTA, No accessory muscle use Cardiovascular: S1, S2, No murmur Abdomen/GI:Soft, Non tender, Bowel sounds present Extremities/Musculoskeletal:normal inspection, no edema Neurologic/Psych:grossly no focal neurological deficits , +Dementia, lethargic Skin: normal color, warm Results & Data Results & Data ([facility]) Vital Signs (Past 12 Hours) Vital Signs O2 Del Method 09/26/22 09:00 Room Air (1) Falls Encounter type: initial encounter Qualified Code(s): W19.XXXA - Unspecified fall, initial encounter
[2022-09-26] MEDS: ATORVASTATIN 40 MG TAB PO SCH ×2 (19:43→20:08)
[2022-09-26] MEDS: OLANZAPINE 2.5 MG TAB PO SCH ×2 (19:43→21:24)
[2022-09-27] MEDS: MEMANTINE HCL 10 MG TAB PO SCH ×2 (08:23→21:18)
[2022-09-27] MEDS: LIDOCAINE 5% 1 PATCH TD SCH (08:28)
[2022-09-27] MEDS: amLODIPine BESYLATE 5 MG TAB PO SCH (08:28)
[2022-09-27] MEDS: GALANTAMINE HYDROBROMIDE 8 MG CAPER PO SCH (08:28)
[2022-09-27] MEDS: CETIRIZINE HCL 10 MG TABLET PO SCH (08:28)
[2022-09-27] MEDS: ASPIRIN 81 MG ECTAB PO SCH (08:28)
[2022-09-27] MEDS: ATENOLOL 25 MG TABLET PO SCH (08:28)
[2022-09-27] MEDS: FUROSEMIDE 20 MG TAB PO SCH (08:28)
[2022-09-27] MEDS: CEROVITE ADV FORMULA TAB PO SCH (08:29)
[2022-09-27] MEDS: PANTOprazole 40 MG TAB PO SCH (08:29)
[2022-09-27] MEDS: UMECLIDINIUM/VILANTEROL 62.5/25MCG 7 PUFFS/INHALER INH SCH (08:29)
--- NOTE | 2022-09-27 16:21 | Hospitalist Progress Note ---
Date of Service September 27, 2022 Assessment & Plan (1) Agitation due to dementia: (2) Dementia with behavioral disturbance: (3) CAD (coronary artery disease): (4) Carotid stenosis: (5) COPD (chronic obstructive pulmonary disease): (6) Sleep apnea: (7) HTN (hypertension): (8) GERD (gastroesophageal reflux disease): (9) Barretts esophagus: Plan: Patient is an 87 yr male with H/O dementia with behavioral disturbance, HTN, dyslipidemia, CAD s/p stent, COPD, sleep apnea on 2L oxygen HS, GERD, Steward's esophagus, carotid stenosis who presented 09/11 with worsening agitation and hallucinations. Dementia with behavioral disturbance Agitation due to dementia Recurrent [place] Manubrium Fracture and Right 6th rib fracture --CT Head:No acute intracranial hemorrhage, no evidence of acute territorial infarction or other acute intracranial disease process. Patient was initially on Seroquel>> transition to Zyprexa Appreciate psychiatry input Continue [facility]eds [facility]F as able Goal is comfort, No aggressive measures Appreciate palliative care Input Clinically seemed to be deteriorating Comfort care as per family's request Plan to transition to hospice upon discharge Dysphagia Aspiration precautions Appreciate Speech therapy eval Minced and moist diet Abnormal CT Right upper lobe density. Pleural plaques --CT:Nodular densities on chest radiograph of September 11, 2022 were due to pleural plaques. 1.4 cm irregular subpleural density within the right upper lobe. Although this could reflect a resolving infectious process or scarring, a neoplasm cannot be excluded. Short-term follow-up chest CT in 2 months is recommended. Acute appearing nondisplaced manubrial fracture. Healing right sixth rib fracture. No pneumothorax. 1.5 cm subpleural cystic focus within the left lower lobe. This is probably benign but can be assessed on follow-up chest CT. -- Needs repeat CT as outpatient to assess resolution -- May need follow-up with pulmonology as outpatient Acute urinary retention S[facility] on 09/15 Voiding trial as able COPD JUAN Continue Anoro Ellipta inhaler, 2L supplemental O2 HS Recent fall with Right flank pain lidocaine, Tylenol PRN CAD (coronary artery disease) S/P Stent EKG with bifascicular block Continue ASA, statin, atenolol HTN Continue amlodipine, lasix, atenolol Dyslipidemia Continue statin DVT Px: SQ heparin-held as more distressed/combative Teds/SCDs Code status: DNR/DNI (10) Falls: Admission and Anticipated Discharge Date Admission Date: September 11, 2022 Subjective Patient is seen and examined at bedside No meaningful history could be obtained Discussed with patient's family at bedside Lethargic and drowsy Patient and family prefers to take patient home Review of Systems Review of Systems: Unobtainable due to cognitive status Physical Exam Physical Exam: Physical Exam: Vitals signs as noted above General Appearance:Moderately built and nourished, no apparent distress, ill appearing Head: normocephalic, Atraumatic Eyes: normal inspection, EOMI Neck: supple, Trachea midline Respiratory/Chest: Normal breath sounds, CTA, No accessory muscle use Cardiovascular: S1, S2, No murmur Abdomen/GI:Soft, Non tender, Bowel sounds present Extremities/Musculoskeletal:normal inspection, no edema Neurologic/Psych:grossly no focal neurological deficits , +Dementia, lethargic Skin: normal color, warm (1) Falls Encounter type: initial encounter Qualified Code(s): W19.XXXA - Unspecified fall, initial encounter
[2022-09-27] MEDS: OLANZAPINE 2.5 MG TAB PO SCH (21:19)
[2022-09-28] MEDS: OLANZapine 10 MG/2.1 ML SDV IM PRN (05:56)
[2022-09-28] MEDS: LIDOCAINE 5% 1 PATCH TD SCH (07:27)
[2022-09-28] MEDS: MEMANTINE HCL 10 MG TAB PO SCH (07:27)
[2022-09-28] MEDS: CEROVITE ADV FORMULA TAB PO SCH (07:28)
[2022-09-28] MEDS: GALANTAMINE HYDROBROMIDE 8 MG CAPER PO SCH (07:28)
--- NOTE | 2022-09-28 12:16 | Hospitalist Progress Note ---
Date of Service September 28, 2022 Assessment & Plan (1) Agitation due to dementia: (2) Dementia with behavioral disturbance: (3) CAD (coronary artery disease): (4) Carotid stenosis: (5) COPD (chronic obstructive pulmonary disease): (6) Sleep apnea: (7) HTN (hypertension): (8) GERD (gastroesophageal reflux disease): (9) Barretts esophagus: Plan: Patient is an 87 yr male with H/O dementia with behavioral disturbance, HTN, dyslipidemia, CAD s/p stent, COPD, sleep apnea on 2L oxygen HS, GERD, Steward's esophagus, carotid stenosis who presented 09/11 with worsening agitation and hallucinations. Dementia with behavioral disturbance Agitation due to dementia Recurrent [place] Manubrium Fracture and Right 6th rib fracture --CT Head:No acute intracranial hemorrhage, no evidence of acute territorial infarction or other acute intracranial disease process. Patient was initially on Seroquel>> transition to Zyprexa Appreciate psychiatry input Continue [facility] Goal is comfort, No aggressive measures Appreciate palliative care Input Clinically deteriorating Comfort care as per family's request Patient unable to make any decisions. Plan to discharge home with hospice services as requested by family Dysphagia Aspiration precautions Appreciate Speech therapy eval Minced and moist diet Abnormal CT Right upper lobe density. Pleural plaques --CT:Nodular densities on chest radiograph of September 11, 2022 were due to pleural plaques. 1.4 cm irregular subpleural density within the right upper lobe. Although this could reflect a resolving infectious process or scarring, a neoplasm cannot be excluded. Short-term follow-up chest CT in 2 months is recommended. Acute appearing nondisplaced manubrial fracture. Healing right sixth rib fracture. No pneumothorax. 1.5 cm subpleural cystic focus within the left lower lobe. This is probably benign but can be assessed on follow-up chest CT. -- Needs repeat CT as outpatient to assess resolution -- May need follow-up with pulmonology as outpatient if patient/family prefers Acute urinary retention [facility] 09/15 Family requests to continue [facility] for comfort COPD JUAN Continue Anoro Ellipta inhaler, 2L supplemental O2 HS Recent fall with Right flank pain lidocaine, Tylenol PRN CAD (coronary artery disease) S/P Stent EKG with bifascicular block Was on ASA, statin, atenolol HTN Was on amlodipine, lasix, atenolol Dyslipidemia Was on statin DVT Px: SQ heparin-held as more distressed/combative; comfort measures Teds/SCDs Code status: DNR/DNI (10) Falls: Admission and Anticipated Discharge Date Admission Date: September 11, 2022 Subjective Patient is seen and examined at bedside No significant change from yesterday No meaningful history could be obtained Discussed with patient's family at bedside Plan to discharge home with hospice Mild distress during my encounter Review of Systems Review of Systems: All systems reviewed & are unremarkable except as noted in Subjective Physical Exam Physical Exam: Physical Exam: Vitals signs as noted above General Appearance:Moderately built and nourished, no apparent distress, ill appearing Head: normocephalic, Atraumatic Eyes: normal inspection, EOMI Neck: supple, Trachea midline Respiratory/Chest: Normal breath sounds, CTA, No accessory muscle use Cardiovascular: S1, S2, No murmur Abdomen/GI:Soft, Non tender, Bowel sounds present Extremities/Musculoskeletal:normal inspection, no edema Neurologic/Psych:grossly no focal neurological deficits , +Dementia, lethargic Skin: normal color, warm Results & Data Results & Data ([facility]) Vital Signs (Past 12 Hours) Vital Signs Temp Pulse Resp BP Pulse Ox O2 Del Method 09/28/22 08:00 Room Air 09/28/22 08:12 36.8 C 108 H 16 126/84 90 Room Air (1) Falls Encounter type: initial encounter Qualified Code(s): W19.XXXA - Unspecified fall, initial encounter
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
== END 2022-09-28 14:25 | disposition hospice, home (50) | DRG 884 ==
LOC: ED 12:28 → SUATTDRO 16:22 → 3W 16:22